=== PATIENT | female | born 1970 | race Caucasian/White ===

== ENCOUNTER 2018-04-22 08:21 | Day surgery (SDC) | payer OTHER ==
[2018-04-22] MEDS ORDERED: Ringers Lactate 1,000 ML IV ONE (08:54)
[2018-04-22] MEDS ORDERED: PROPOFOL 200 MG/20 ML VIAL IV ONE (10:51)
[2018-04-22] MEDS ORDERED: LIDOCAINE 1% MPF 5 ML VIAL ONE (10:51)
--- NOTE | 2018-04-22 11:05 | ENDO RPT ---
[address], [address] EGD PROCEDURE REPORT EXAM DATE: 04/22/2018 PATIENT NAME: Wendy Ambrocio MR#: [id number] BIRTHDATE: 1970 ATTENDING: Tl [address] STATUS: outpatient INSIGHT LEADER: Silvana Garcia, Luann Billy RN, and Joe Garcia INDICATIONS: The patient is a 47 yr old Female here for an EGD due to mid epigastric abdominal pain, nausea, bloating, belching, dyspepsia, GERD, and chronic unexplained diarrhea PROCEDURE PERFORMED: EGD with biopsy MEDICATIONS: Per Anesthesia. TOPICAL ANESTHETIC: none CONSENT: The patient understands the risks and benefits of the procedure and understands that these risks include, but are not limited to: sedation, allergic reaction, infection, perforation and/or bleeding. Alternative means of evaluation and treatment include, among others: physical exam, x-rays, and/or surgical intervention. The patient elects to proceed with this endoscopic procedure. DESCRIPTION OF PROCEDURE: During intra-op preparation period all mechanical medical equipment was checked for proper function. Hand hygiene and appropriate measures for infection prevention was taken. Procedure, possible complications, and alternatives including but not limited to the possibility of bleeding, perforation, tear, infection, sepsis, need for surgery, need for blood transfusion, and anesthesia related complications were explained to the patient. After the risks, benefits and alternatives of the procedure were thoroughly explained, Informed consent was verified, confirmed and timeout was successfully executed by the treatment team. The patient was placed in the left lateral position. The patient was anesthetized with topical anesthesia. Through the anesthetized oropharyngeal area, the scope was passed without any difficulty. The Pentax EG-[id number] ([id number]) endoscope was introduced through the mouth and advanced to the second portion of the duodenum. Retroflexed views revealed no abnormalities. The gastroscope was then slowly withdrawn and removed. LA Class A esophagitis was found in the lower esophagus. Mild gastritis was found in the body and the antrum of the stomach. Multiple biopsies were obtained and sent to pathology. A sessile polyp was found in the body of the stomach. With jumbo forceps, a biopsy was obtained and sent to pathology. Small bowel biopsies obtained with history of chronic unexplained diarrhea. ADVERSE EVENTS: There were no complications. IMPRESSIONS: 1. LA Class A esophagitis in the lower esophagus 2. Mild gastritis in the body and the antrum of the stomach, s/p biopsies 3. 6 small 3-5 mm sessile polyp in the body of the stomach, s/p biopsy 4. Small bowel biopsies obtained with history of chronic unexplained diarrhea RECOMMENDATIONS: 1. await biopsy results 2. acid suppression therapy REPEAT EXAM: Tl Harrison Dr eSigned: Tl Harrison Dr 04/22/2018 11:04 AM cc: Lalit Brooks CPT CODES: ICD9 CODES: PATIENT NAME: Wendy Ambrocio MR#: [id number]
[2018-04-22] MEDS ORDERED: MIDAZOLAM HCL 2 MG/2 ML INJ ONE (11:07)
--- NOTE | 2018-04-22 11:24 | ENDO RPT ---
[address], [address] COLONOSCOPY PROCEDURE REPORT EXAM DATE: 04/22/2018 PATIENT NAME: Wendy Ambrocio MR #: [id number] BIRTHDATE: 1970 ATTENDING: Tl [address] Dr STATUS: outpatient BIOMETRICS EXPERIMENTALIST: Silvana Garcia, Luann Billy RN, and Joe Garcia INDICATIONS: The patient is a 47 yr old Female here for a colonoscopy due to abdominal pain, change in bowel habits, and unexplained chronic diarrhea PROCEDURE PERFORMED: Colonoscopy with snare polypectomy MEDICATIONS: Per Anesthesia. ESTIMATED BLOOD LOSS: None CONSENT: The patient understands the risks and benefits of the procedure and understands that these risks include, but are not limited to: sedation, allergic reaction, infection, perforation and/or bleeding. Alternative means of evaluation and treatment include, among others: physical exam, x-rays, and/or surgical intervention. The patient elects to proceed with this endoscopic procedure. DESCRIPTION OF PROCEDURE: During intra-op preparation period all mechanical medical equipment was checked for proper function. Hand hygiene and appropriate measures for infection prevention was taken. Procedure, possible complications, alternatives including, but not limited to possibility of bleeding, perforation, tear, infection, sepsis, need for surgery, need for blood transfusion, were explained to the patient. After the risks, benefits and alternatives of the procedure were thoroughly explained, Informed consent was verified, confirmed and timeout was successfully executed by the treatment team. The patient was placed in the left lateral position. A digital rectal exam was performed and revealed no abnormalities of the rectum. After appropriate level of anesthesia, the scope was passed. The EC-[id number] ([id number]) endoscope was introduced through the anus and advanced to the cecum. The quality of the prep was fair. The instrument was then slowly withdrawn as the colon was fully examined. Scope withdrawal time was 8 minutes. COLON FINDINGS: A pedunculated polyp measuring 10 mm in size was found in the transverse colon. A polypectomy was performed using snare cautery. Mild diverticulosis in the sigmoid colon. Small internal hemorrhoids were found. Retroflexed views revealed small hemorrhoids. The scope was then completely withdrawn from the patient and the procedure terminated. ADVERSE EVENTS: There were no complications. IMPRESSIONS: 1. 1 cm pedunculated polyp in the transverse colon; polypectomy was performed using snare cautery 2. Mild diverticulosis in the sigmoid colon 3. Small internal hemorrhoids 4. Intubation to cecum RECOMMENDATIONS: 1. await biopsy results 2. avoid NSAIDS for 2 weeks RECALL: Return in 1 year(s) for Colonoscopy. Tl [address] Dr eSigned: Tl Harrison Dr 04/22/2018 11:24 AM cc: Lalit Brooks CPT CODES: ICD9 CODES: PATIENT NAME: Wendy Ambrocio MR#: [id number]
== END 2018-04-22 11:59 | disposition home or self-care (01) ==
LOC: OR 08:21
PROVIDERS: ATTEND Internal Medicine Gastroenterology
PROC: 0DB88ZX Excision of Small Intestine, Via Natural or Artificial Opening Endoscopic, Diagnostic (ICD-10-PCS; 2018-04-22)
PROC: 0DB78ZX Excision of Stomach, Pylorus, Via Natural or Artificial Opening Endoscopic, Diagnostic (ICD-10-PCS; 2018-04-22)
PROC: 0D568ZZ Destruction of Stomach, Via Natural or Artificial Opening Endoscopic (ICD-10-PCS; 2018-04-22)
PROC: 0DBL8ZX Excision of Transverse Colon, Via Natural or Artificial Opening Endoscopic, Diagnostic (ICD-10-PCS; principal; 2018-04-22 11:15)
PROC: 0DB68ZX Excision of Stomach, Via Natural or Artificial Opening Endoscopic, Diagnostic (ICD-10-PCS; 2018-04-22 11:15)
DX: K31.7 Polyp of stomach and duodenum (principal); K63.5 Polyp of colon; K57.10 Diverticulosis of small intestine without perforation or abscess without bleeding; K64.8 Other hemorrhoids; I10 Essential (primary) hypertension; K58.0 Irritable bowel syndrome with diarrhea; M35.00 Sjogren syndrome, unspecified; K29.60 Other gastritis without bleeding; K20.8 Other esophagitis
CPT/HCPCS: 88305; 88312; J2250

== ENCOUNTER → 2023-11-12 | Emergency (ER) | payer OTHER, SELFPAY ==
[~2023-11-12] MED LIST: KETOROLAC 30 MG/ML INJ ONE; hydrOXYzine HCL 25 MG TAB ONE
--- OUTSIDE RECORDS SUMMARY | 2023-11-12 00:30 | XMS REPORT | Continuity of Care Document ---
Author Name Unknown Address [address] [place] [address] [facility] Address [address] [facility] [address] [place] [address] Care Team Providers Care Clinical Nursing Instructor Name Role Phone Pillo Noble MD Primary Care Physician [phone] Regan Astorga Attending Clinician Unavailable Pillo Noble MD Attending Clinician [phone] PILLO NOBLE Attending Clinician Unavailable Doctor Unassigned, Zion Attending Clinician U navailable ROSETTA_Miya Attending Clinician Unavailable KELLY ALVAREZ Attending Clinician Unavailable Kelly Elder Attending Clinician [phone] Unknown, Attending Attending Clinician Unavailab Zana GARDNER, Marcelo Pederson Attending Clinician + [phone] Hussein Sanon MD Attending Clinician [phone] ALTON BRANHAM Attending Clinician Unavailcarolyn Olvera OT, Vandana A Attending Clinician Unavail able Alton Brnaham MD Attending Clinician [phone] Dora TYLER, Yary Smith Attending Clinician UnaLUPE Lopez Attending Clinician Unavailable Ambreen PAC, Lupe S Attending Clinician [phone] Pob, [facility] Main Attending Clinician UnavailYARY Hancock Attending Clinician Unavailab Brennen FRENCH MD, James C Attending Clinician [phone] Green INTERNAL COMMUNICATIONS SPECIALIST, Joy Attending Clinician [phone] JOY JARRETT Attending Clinician Unavailable Therapy, [facility] Attending Clinician Unavailable Ranjith GARDNER, Sesar Mujica Attending Clinician [phone] SESAR LÓPEZ Attending Clinician Unavailable MARCELO PENA Attending Clinician UnaAyde Vázquez Attending Clinician [phone] AYDE SOUSA Attending Clinician Unavailable Provider, [facility] Attending Clinician Unavailable Yary Shine Attending Clinician [phone] Ramu TYLER, Iris Prieto Attending Clinician Unavaila ble Only, Ang Db Test Attending Clinician Unavailabl salazar Hamlin INTERNAL COMMUNICATIONS SPECIALIST, Abdirizak Attending Clinician [phone] ABDIRIZAK HAMLIN Attending Clinician Unavailabl e Ralph Villela DO Attending Clinician [phone] Provider, [facility] Attending Clinician Un available Omaghomi INTERNAL COMMUNICATIONS SPECIALIST, Omayembebeto Attending Clinician [phone] OMROSA MARIAI OMAYEMI Attending Clinician Unavailabl salazar Meyers INTERNAL COMMUNICATIONS SPECIALIST, Mikey Attending Clinician [phone] Jacqueline Petty NP Attending Clinician [phone] P[facility], [facility] Attending Clinician UnaMIKEY Garcia Attending Clinician Unavailable Manny GARDNER, Jarrod Attending Clinician [phone] TOMASA Admitting Clinician Unavailable Payers Payer Name Policy Type Policy Number Effective Date Expirati on Date Source [employer] [id number] 2020 00:00[place]00 [facility] [id number] 2023 00:00:00 [facility] - OPEN ACCESS [id number] 2022 00:00:00 [employer] [facility] [id number] 2014 00:00:00 Problems Condition Name Condition Details Condition Category Status Onset Date Resolution Date Last Treatment Date Treating Clinician Comments Source Menopause Menopause Disease Active 02-28 00:00: 00 [facility] Irritable bowel syndrome, unspecifie d type Irritable bowel syndrome, unspecifie d type Disease Active 02-28 00:00: 00 [facility] Right foot pain Right foot pain Disease Active 02-20 00:00: 00 [facility] Anxiety Anxiety Disease Active 10-11 00:00: 00 [facility] [id number] Generalize d anxiety disorder Problem [facility] [id number] Moderate major depression , single episode Problem [facility] [id number] Essential hypertensi on Problem [facility] [id number] Body mass index [BMI] 40.0-44.9, adult Problem [facility] [id number] Morbid (severe) obesity due to excess calories Problem [facility] [id number] Panic disorder [episodic paroxysmal anxiety] Problem [facility] [id number] Hx of total hysterecto my Problem [facility] [id number] Psoriatic arthritis Problem [facility] [id number] Sjogren's syndrome, with unspecifie d organ involvemen t Problem [facility] [id number] Postmenopa usal disorder Problem [facility] [id number] GERD without esophagiti s Problem [facility] Allergies, Adverse Reactions, Alerts Allergy Name Allergy Type Status Severity Reaction(s) Onset Date Inactive Date Treating Clinician Comments Source NO KNOWN ALLERGIE S Drug Class Active [facility] Social History Social Habit Start Date Stop Date Quantity Comments Source Gender identity [facility] of [facility] Sex Assigned At [facility] History of Social function 2023-03-22 00:00:00 2023-03-22 00:00:00 [facility] Exposure to SARS-CoV-2 (event) 2022-09-23 00:00:00 2022-10-03 16:15:00 Not sure [facility] Alcohol intake 2021-05-25 00:00:00 2021-05-25 00:00:00 Current non-drinker of alcohol (finding) [facility] Tobacco use and exposure 2015-10-11 00:00:00 2015-10-11 00:00:00 Smokeless tobacco non-user [facility] Smoking Status Start Date Stop Date Source Never Smoker [facility] Ex-smoker 2015-10-11 00:00:00 2015-10-11 [facility] Ordered Medication Name Filled Medication Name Start Date Stop Date Current Medication? Ordering Clinician Indication Dosage Frequency Signature (SIG) Comments Components Source Saxenda 18 MG/3ML Saxenda 18 MG/3ML 2024-0 - 00:00: 00 No QD Saxenda 18 MG/3ML Saxenda 18 MG/3ML Saxenda 18 MG/3ML 2024-0 - 00:00: 00 No QD Saxenda 18 MG/3ML Saxenda 18 MG/3ML Saxenda 18 MG/3ML 2024-0 - 00:00: 00 No QD Saxenda 18 MG/3ML Saxenda 18 MG/3ML Saxenda 18 MG/3ML 2024-0 - 00:00: 00 No QD Saxenda 18 MG/3ML Saxenda 18 MG/3ML Saxenda 18 MG/3ML 2024-0 1- 00:00: 00 No QD Saxenda 18 MG/3ML Saxenda 18 MG/3ML Saxenda 18 MG/3ML 2024-0 - 00:00: 00 No QD Saxenda 18 MG/3ML Saxenda 18 MG/3ML Saxenda 18 MG/3ML 2024-0 - 00:00: 00 No QD Saxenda 18 MG/3ML Saxenda 18 MG/3ML Saxenda 18 MG/3ML 2024-0 1-30 00:00: 00 No QD Saxenda 18 MG/3ML Saxenda 18 MG/3ML Saxenda 18 MG/3ML 4-0 1-30 00:00: 00 No QD Saxenda 18 MG/3ML Saxenda 18 MG/3ML Saxenda 18 MG/3ML 4-0 1-30 00:00: 00 No QD Saxenda 18 MG/3ML Saxenda 18 MG/3ML Saxenda 18 MG/3ML 4-0 1-30 00:00: 00 No QD Saxenda 18 MG/3ML Saxenda 18 MG/3ML Saxenda 18 MG/3ML 2024-0 1- 00:00: 00 No QD Saxenda 18 MG/3ML Saxenda 18 MG/3ML Saxenda 18 MG/3ML 4-0 - 00:00: 00 No QD Saxenda 18 MG/3ML ALPRAZolam 0.5 MG ALPRAZolam 0.5 MG 4-0 -25 00:00: 00 No BID ALPRAZolam 0.5 MG ALPRAZolam 0.5 MG ALPRAZolam 0.5 MG 4-0 -25 00:00: 00 No BID ALPRAZolam 0.5 MG ALPRAZolam 0.5 MG ALPRAZolam 0.5 MG 4-0 -25 00:00: 00 No BID ALPRAZolam 0.5 MG ALPRAZolam 0.5 MG ALPRAZolam 0.5 MG 4-0 -25 00:00: 00 No BID ALPRAZolam 0.5 MG ALPRAZolam 0.5 MG ALPRAZolam 0.5 MG 4-0 -25 00:00: 00 No BID ALPRAZolam 0.5 MG ALPRAZolam 0.5 MG ALPRAZolam 0.5 MG 4-0 -25 00:00: 00 No BID ALPRAZolam 0.5 MG ALPRAZolam 0.5 MG ALPRAZolam 0.5 MG 4-0 -25 00:00: 00 No BID ALPRAZolam 0.5 MG ALPRAZolam 0.5 MG ALPRAZolam 0.5 MG 4-0 -25 00:00: 00 No BID ALPRAZolam 0.5 MG ALPRAZolam 0.5 MG ALPRAZolam 0.5 MG 4-0 -25 00:00: 00 No BID ALPRAZolam 0.5 MG ALPRAZolam 0.5 MG ALPRAZolam 0.5 MG 4-0 1-25 00:00: 00 No BID ALPRAZolam 0.5 MG ALPRAZolam 0.5 MG ALPRAZolam 0.5 MG 2023-0 1-25 00:00: 00 No BID ALPRAZolam 0.5 MG ALPRAZolam 0.5 MG ALPRAZolam 0.5 MG 2023-0 1-25 00:00: 00 No BID ALPRAZolam 0.5 MG Mounjaro 10 MG/0.5ML Mounjaro 10 MG/0.5ML 2023-0 1-16 00:00: 00 No Mounjaro 10 MG/0.5ML Zepbound 10 MG/0.5ML Zepbound 10 MG/0.5ML 2023-0 1-15 00:00: 00 No Zepbound 10 MG/0.5ML ALPRAZolam 1 MG ALPRAZolam 1 MG 2022-09 1- 00:00: 00 No BID ALPRAZolam 1 MG Amoxicillin 500 MG Amoxicillin 500 MG 2022-09 0 00:00: 00 No 1{table t} TID Amoxicilli n 500 MG ESTRADIOL 1 mg tablet 2022-09 00:00: 00 Yes [id number] 1mg TAKE 1 TABLET BY MOUTH DAILY [facility] ESTRADIOL 1 mg tablet 05-09 00:00: 00 Yes [id number] 1mg TAKE 1 TABLET BY MOUTH DAILY [facility] ESTRADIOL 1 mg tablet 05-09 00:00: 00 06-20 00:00 :00 No [id number] 1mg TAKE 1 TABLET BY MOUTH DAILY [facility] pantoprazol e 40 mg EC tablet 03-22 00:00: 00 Yes [id number] 40mg Take 1 tablet by mouth in the morning. [facility] metoprolol succinate XL 100 mg 24 hr tablet 03-22 00:00: 00 Yes [id number] 100mg Take 1 tablet by mouth in the morning. [facility] furosemide 20 mg tablet 03-22 00:00: 00 Yes [id number] 20mg Take 1 tablet by mouth every morning. [facility] ALPRAZolam 1 mg tablet 03-22 00:00: 00 Yes [id number] TAKE 1 TABLET BY MOUTH TWICE DAILY NEEDED FOR ANXIETY [facility] pantoprazol e 40 mg EC tablet 03-22 00:00: 00 Yes [id number] 40mg Take 1 tablet by mouth in the morning. [facility] metoprolol succinate XL 100 mg 24 hr tablet 03-22 00:00: 00 Yes [id number] 100mg Take 1 tablet by mouth in the morning. [facility] furosemide 20 mg tablet 03-22 00:00: 00 Yes [id number] 20mg Take 1 tablet by mouth every morning. [facility] ALPRAZolam 1 mg tablet 03-22 00:00: 00 Yes [id number] TAKE 1 TABLET BY MOUTH TWICE DAILY NEEDED FOR ANXIETY [facility] pantoprazol e 40 mg EC tablet 03-22 00:00: 00 Yes [id number] 40mg Take 1 tablet by mouth in the morning. [facility] metoprolol succinate XL 100 mg 24 hr tablet 03-22 00:00: 00 Yes [id number] 100mg Take 1 tablet by mouth in the morning. [facility] furosemide 20 mg tablet 03-22 00:00: 00 Yes [id number] 20mg Take 1 tablet by mouth every morning. [facility] ALPRAZolam 1 mg tablet 03-22 00:00: 00 Yes [id number] TAKE 1 TABLET BY MOUTH TWICE DAILY NEEDED FOR ANXIETY [facility] pantoprazol e 40 mg EC tablet 03-22 00:00: 00 Yes [id number] 40mg Take 1 tablet by mouth in the morning. [facility] metoprolol succinate XL 100 mg 24 hr tablet 03-22 00:00: 00 Yes [id number] 100mg Take 1 tablet by mouth in the morning. [facility] furosemide 20 mg tablet 03-22 00:00: 00 Yes [id number] 20mg Take 1 tablet by mouth every morning. [facility] ALPRAZolam 1 mg tablet 03-22 00:00: 00 Yes [id number] TAKE 1 TABLET BY MOUTH TWICE DAILY NEEDED FOR ANXIETY [facility] pantoprazol e 40 mg EC tablet 03-22 00:00: 00 Yes [id number] 40mg Take 1 tablet by mouth in the morning. [facility] metoprolol succinate XL 100 mg 24 hr tablet 03-22 00:00: 00 Yes [id number] 100mg Take 1 tablet by mouth in the morning. [facility] furosemide 20 mg tablet 03-22 00:00: 00 Yes [id number] 20mg Take 1 tablet by mouth every morning. [facility] ALPRAZolam 1 mg tablet 03-22 00:00: 00 Yes [id number] TAKE 1 TABLET BY MOUTH TWICE DAILY NEEDED FOR ANXIETY [facility] ALPRAZOLAM 1 mg tablet 03-15 00:00: 00 Yes [id number] TAKE 1 TABLET BY MOUTH TWICE DAILY NEEDED FOR ANXIETY [facility] ESCITALOPRA M OXALATE 10 mg tablet 03-15 00:00: 00 Yes [id number] 10mg TAKE 1 TABLET BY MOUTH DAILY [facility] ALPRAZOLAM 1 mg tablet 03-15 00:00: 00 Yes [id number] TAKE 1 TABLET BY MOUTH TWICE DAILY NEEDED FOR ANXIETY [facility] ESCITALOPRA M OXALATE 10 mg tablet 03-15 00:00: 00 Yes [id number] 10mg TAKE 1 TABLET BY MOUTH DAILY [facility] ESCITALOPRA M OXALATE 10 mg tablet 03-15 00:00: 00 Yes [id number] 10mg TAKE 1 TABLET BY MOUTH DAILY [facility] ESCITALOPRA M OXALATE 10 mg tablet 03-15 00:00: 00 Yes [id number] 10mg TAKE 1 TABLET BY MOUTH DAILY [facility] ESCITALOPRA M OXALATE 10 mg tablet 03-15 00:00: 00 Yes [id number] 10mg TAKE 1 TABLET BY MOUTH DAILY [facility] ESCITALOPRA M OXALATE 10 mg tablet 03-15 00:00: 00 Yes [id number] 10mg TAKE 1 TABLET BY MOUTH DAILY [facility] ESCITALOPRA M OXALATE 10 mg tablet 03-15 00:00: 00 Yes [id number] 10mg TAKE 1 TABLET BY MOUTH DAILY [facility] ALPRAZOLAM 1 mg tablet 03-15 00:00: 00 03-22 00:00 :00 No [id number] TAKE 1 TABLET BY MOUTH TWICE DAILY NEEDED FOR ANXIETY [facility] ALPRAZOLAM 1 mg tablet 03-15 00:00: 00 03-22 00:00 :00 No [id number] TAKE 1 TABLET BY MOUTH TWICE DAILY NEEDED FOR ANXIETY [facility] ALPRAZOLAM 1 mg tablet 03-15 00:00: 00 03-22 00:00 :00 No [id number] TAKE 1 TABLET BY MOUTH TWICE DAILY NEEDED FOR ANXIETY [facility] METOPROLOL SUCCINATE XL 100 mg 24 hr tablet 01-29 00:00: 00 Yes [id number] 100mg TAKE 1 TABLET BY MOUTH DAILY [facility] ESTRADIOL 1 mg tablet 01-29 00:00: 00 Yes [id number] 1mg TAKE 1 TABLET BY MOUTH DAILY [facility] METOPROLOL SUCCINATE XL 100 mg 24 hr tablet 01-29 00:00: 00 Yes [id number] 100mg TAKE 1 TABLET BY MOUTH DAILY [facility] ESTRADIOL 1 mg tablet 01-29 00:00: 00 Yes [id number] 1mg TAKE 1 TABLET BY MOUTH DAILY [facility] METOPROLOL SUCCINATE XL 100 mg 24 hr tablet 01-29 00:00: 00 Yes [id number] 100mg TAKE 1 TABLET BY MOUTH DAILY [facility] ESTRADIOL 1 mg tablet 15 00:00: 00 Yes [id number] 1mg TAKE 1 TABLET BY MOUTH DAILY [facility] METOPROLOL SUCCINATE XL 100 mg 24 hr tablet 01-29 00:00: 00 Yes [id number] 100mg TAKE 1 TABLET BY MOUTH DAILY [facility] ESTRADIOL 1 mg tablet -15 00:00: 00 Yes [id number] 1mg TAKE 1 TABLET BY MOUTH DAILY [facility] ESTRADIOL 1 mg tablet 15 00:00: 00 Yes [id number] 1mg TAKE 1 TABLET BY MOUTH DAILY [facility] ESTRADIOL 1 mg tablet 15 00:00: 00 Yes [id number] 1mg TAKE 1 TABLET BY MOUTH DAILY [facility] ESTRADIOL 1 mg tablet 15 00:00: 00 Yes [id number] 1mg TAKE 1 TABLET BY MOUTH DAILY [facility] ESTRADIOL 1 mg tablet 15 00:00: 00 05-09 00:00 :00 No [id number] 1mg TAKE 1 TABLET BY MOUTH DAILY [facility] METOPROLOL SUCCINATE XL 100 mg 24 hr tablet 15 00:00: 00 03-22 00:00 :00 No [id number] 100mg TAKE 1 TABLET BY MOUTH DAILY [facility] METOPROLOL SUCCINATE XL 100 mg 24 hr tablet 15 00:00: 00 03-22 00:00 :00 No [id number] 100mg TAKE 1 TABLET BY MOUTH DAILY [facility] METOPROLOL SUCCINATE XL 100 mg 24 hr tablet 15 00:00: 00 03-22 00:00 :00 No [id number] 100mg TAKE 1 TABLET BY MOUTH DAILY [facility] ESTRADIOL 1 mg tablet 2-14 00:00: 00 Yes [id number] 1mg TAKE 1 TABLET BY MOUTH DAILY [facility] ESTRADIOL 1 mg tablet 2-14 00:00: 00 01-29 00:00 :00 No [id number] 1mg TAKE 1 TABLET BY MOUTH DAILY [facility] PANTOPRAZOL E 40 mg EC tablet -18 00:00: 00 Yes [id number] 40mg TAKE 1 TABLET BY MOUTH IN THE MORNING [facility] furosemide 20 mg tablet -18 00:00: 00 Yes [id number] 20mg Take 1 tablet by mouth every morning. [facility] PANTOPRAZOL E 40 mg EC tablet 0 18 00:00: 00 Yes [id number] 40mg TAKE 1 TABLET BY MOUTH IN THE MORNING [facility] furosemide 20 mg tablet 0 18 00:00: 00 Yes [id number] 20mg Take 1 tablet by mouth every morning. [facility] PANTOPRAZOL E 40 mg EC tablet 0 10-04 00:00: 00 Yes [id number] 40mg TAKE 1 TABLET BY MOUTH IN THE MORNING [facility] furosemide 20 mg tablet 0 10-04 00:00: 00 Yes [id number] 20mg Take 1 tablet by mouth every morning. [facility] PANTOPRAZOL E 40 mg EC tablet 10-04 00:00: 00 Yes [id number] 40mg TAKE 1 TABLET BY MOUTH IN THE MORNING [facility] furosemide 20 mg tablet 0 10-04 00:00: 00 Yes [id number] 20mg Take 1 tablet by mouth every morning. [facility] PANTOPRAZOL E 40 mg EC tablet 0 10-04 00:00: 00 Yes [id number] 40mg TAKE 1 TABLET BY MOUTH IN THE MORNING [facility] furosemide 20 mg tablet 0 10-04 00:00: 00 Yes [id number] 20mg Take 1 tablet by mouth every morning. [facility] PANTOPRAZOL E 40 mg EC tablet 0 10-04 00:00: 00 Yes [id number] 40mg TAKE 1 TABLET BY MOUTH IN THE MORNING [facility] furosemide 20 mg tablet 0 10-04 00:00: 00 Yes [id number] 20mg Take 1 tablet by mouth every morning. [facility] PANTOPRAZOL E 40 mg EC tablet 18 00:00: 00 03-22 00:00 :00 No [id number] 40mg TAKE 1 TABLET BY MOUTH IN THE MORNING [facility] furosemide 20 mg tablet 18 00:00: 00 03-22 00:00 :00 No [id number] 20mg Take 1 tablet by mouth every morning. [facility] PANTOPRAZOL E 40 mg EC tablet 10-04 00:00: 00 03-22 00:00 :00 No [id number] 40mg TAKE 1 TABLET BY MOUTH IN THE MORNING [facility] furosemide 20 mg tablet 10-04 00:00: 00 03-22 00:00 :00 No [id number] 20mg Take 1 tablet by mouth every morning. [facility] PANTOPRAZOL E 40 mg EC tablet 10-04 00:00: 00 03-22 00:00 :00 No [id number] 40mg TAKE 1 TABLET BY MOUTH IN THE MORNING [facility] furosemide 20 mg tablet 10-04 00:00: 00 03-22 00:00 :00 No [id number] 20mg Take 1 tablet by mouth every morning. [facility] ipratropium -albuteroL (DUONEB) 0.5 mg-3 mg(2.5 mg base)/3 mL nebulizer solution 6 mL 10-03 23:30: 00 10-03 22:45 :00 No [id number] 6mL [facility] dexamethaso ne (DECADRON) injection 10 mg 10-03 23:30: 00 10-03 22:44 :00 No [id number] 10mg [facility] dexamethaso ne (DECADRON) injection 10 mg 10-03 23:30: 00 10-03 22:44 :00 No [id number] 10mg 10 mg, Intramuscu lar, ONCE, 1 dose, On Sun10/03/22 at 1730, Routine [facility] ipratropium -albuteroL (DUONEB) 0.5 mg-3 mg(2.5 mg base)/3 mL nebulizer solution 6 mL 10-03 23:30: 00 10-03 22:45 :00 No [id number] 6mL 6 mL, Inhalation , ONCE, 1 dose, On Sun10/03/22 at 1730, Routine [facility] predniSONE 20 mg tablet 2022-0 1-17 00:00: 00 10-09 05:59 :00 No [id number] 40mg Take 2 tablets by mouth in the morning for 5 days. [facility] promethazin e-dextromet horphan 6.25-15 mg/5 mL syrup 2022-0 1-17 00:00: 00 10-09 05:59 :00 No [id number] 5mL Take 5 mL by mouth 4 (four) times daily for 5 days. [facility] levoFLOXaci n (LEVAQUIN) 750 mg tablet 2022-0 1-17 00:00: 00 10-09 05:59 :00 No [id number] 750mg Take 1 tablet by mouth every 24 (twenty-fo ur) hours for 5 days. [facility] predniSONE 20 mg tablet 2022-0 1-17 00:00: 00 10-09 05:59 :00 No [id number] 40mg Take 2 tablets by mouth in the morning for 5 days. [facility] promethazin e-dextromet horphan 6.25-15 mg/5 mL syrup 0 1-17 00:00: 00 10-09 05:59 :00 No [id number] 5mL Take 5 mL by mouth 4 (four) times daily for 5 days. [facility] levoFLOXaci n (LEVAQUIN) 750 mg tablet 2022-0 1-17 00:00: 00 10-09 05:59 :00 No [id number] 750mg Take 1 tablet by mouth every 24 (twenty-fo ur) hours for 5 days. [facility] predniSONE 20 mg tablet 2022-0 1-17 00:00: 00 10-09 05:59 :00 No [id number] 40mg Take 2 tablets by mouth in the morning for 5 days. [facility] promethazin e-dextromet horphan 6.25-15 mg/5 mL syrup 2022-0 1-17 00:00: 00 10-09 05:59 :00 No [id number] 5mL Take 5 mL by mouth 4 (four) times daily for 5 days. [facility] levoFLOXaci n (LEVAQUIN) 750 mg tablet 10-03 00:00: 00 10-09 05:59 :00 No [id number] 750mg Take 1 tablet by mouth every 24 (twenty-fo ur) hours for 5 days. [facility] ESCITALOPRA M OXALATE 10 mg tablet 2021-09 00:00: 00 Yes [id number] 10mg TAKE 1 TABLET BY MOUTH DAILY [facility] ESCITALOPRA M OXALATE 10 mg tablet 2021-09 00:00: 00 Yes [id number] 10mg TAKE 1 TABLET BY MOUTH DAILY [facility] ESCITALOPRA M OXALATE 10 mg tablet 2021-09 00:00: 00 Yes [id number] 10mg TAKE 1 TABLET BY MOUTH DAILY [facility] ESCITALOPRA M OXALATE 10 mg tablet 2021-09 00:00: 00 Yes [id number] 10mg TAKE 1 TABLET BY MOUTH DAILY [facility] ESCITALOPRA M OXALATE 10 mg tablet 2021-09 00:00: 00 Yes [id number] 10mg TAKE 1 TABLET BY MOUTH DAILY [facility] ESCITALOPRA M OXALATE 10 mg tablet 2021-09 00:00: 00 Yes [id number] 10mg TAKE 1 TABLET BY MOUTH DAILY [facility] ESCITALOPRA M OXALATE 10 mg tablet 2021-09 00:00: 00 Yes [id number] 10mg TAKE 1 TABLET BY MOUTH DAILY [facility] ESCITALOPRA M OXALATE 10 mg tablet 2021-09 00:00: 00 03-15 00:00 :00 No [id number] 10mg TAKE 1 TABLET BY MOUTH DAILY [facility] ESTRADIOL 1 mg tablet 2021-09 00:00: 00 Yes [id number] 1mg TAKE 1 TABLET BY MOUTH DAILY [facility] metoprolol succinate XL 100 mg 24 hr tablet 2021-09 00:00: 00 Yes [id number] 100mg TAKE 1 TABLET BY MOUTH DAILY [facility] ESTRADIOL 1 mg tablet 2021-09 00:00: 00 Yes [id number] 1mg TAKE 1 TABLET BY MOUTH DAILY [facility] metoprolol succinate XL 100 mg 24 hr tablet 2021-09 00:00: 00 Yes [id number] 100mg TAKE 1 TABLET BY MOUTH DAILY [facility] ESTRADIOL 1 mg tablet 2021-09 00:00: 00 Yes [id number] 1mg TAKE 1 TABLET BY MOUTH DAILY [facility] metoprolol succinate XL 100 mg 24 hr tablet 2021-09 00:00: 00 Yes [id number] 100mg TAKE 1 TABLET BY MOUTH DAILY [facility] ESTRADIOL 1 mg tablet 2021-09 00:00: 00 Yes [id number] 1mg TAKE 1 TABLET BY MOUTH DAILY [facility] metoprolol succinate XL 100 mg 24 hr tablet 2021-09 00:00: 00 Yes [id number] 100mg TAKE 1 TABLET BY MOUTH DAILY [facility] ESTRADIOL 1 mg tablet 2021-09 00:00: 00 Yes [id number] 1mg TAKE 1 TABLET BY MOUTH DAILY [facility] metoprolol succinate XL 100 mg 24 hr tablet 2021-09 00:00: 00 Yes [id number] 100mg TAKE 1 TABLET BY MOUTH DAILY [facility] ESTRADIOL 1 mg tablet 2021-09 00:00: 00 Yes [id number] 1mg TAKE 1 TABLET BY MOUTH DAILY [facility] metoprolol succinate XL 100 mg 24 hr tablet 2021-09 00:00: 00 Yes [id number] 100mg TAKE 1 TABLET BY MOUTH DAILY [facility] metoprolol succinate XL 100 mg 24 hr tablet 2021-09 00:00: 00 01-29 00:00 :00 No [id number] 100mg TAKE 1 TABLET BY MOUTH DAILY [facility] ESTRADIOL 1 mg tablet 2021-09 00:00: 00 10-31 00:00 :00 No [id number] 1mg TAKE 1 TABLET BY MOUTH DAILY [facility] ALPRAZOLAM 1 mg tablet 2021-09 00:00: 00 Yes [id number] TAKE 1 TABLET BY MOUTH TWICE DAILY NEEDED FOR ANXIETY [facility] ALPRAZOLAM 1 mg tablet 2021-09 00:00: 00 Yes [id number] TAKE 1 TABLET BY MOUTH TWICE DAILY NEEDED FOR ANXIETY [facility] ALPRAZOLAM 1 mg tablet 2021-09 00:00: 00 Yes [id number] TAKE 1 TABLET BY MOUTH TWICE DAILY NEEDED FOR ANXIETY [facility] ALPRAZOLAM 1 mg tablet 2021-09 00:00: 00 Yes [id number] TAKE 1 TABLET BY MOUTH TWICE DAILY NEEDED FOR ANXIETY [facility] ALPRAZOLAM 1 mg tablet 2021-09 00:00: 00 Yes [id number] TAKE 1 TABLET BY MOUTH TWICE DAILY NEEDED FOR ANXIETY [facility] ALPRAZOLAM 1 mg tablet 2021-09 00:00: 00 Yes [id number] TAKE 1 TABLET BY MOUTH TWICE DAILY NEEDED FOR ANXIETY [facility] ALPRAZOLAM 1 mg tablet 2021-09 00:00: 00 Yes [id number] TAKE 1 TABLET BY MOUTH TWICE DAILY NEEDED FOR ANXIETY [facility] ALPRAZOLAM 1 mg tablet 2021-09 00:00: 00 Yes [id number] TAKE 1 TABLET BY MOUTH TWICE DAILY NEEDED FOR ANXIETY [facility] ALPRAZOLAM 1 mg tablet 2021-09 00:00: 00 Yes [id number] TAKE 1 TABLET BY MOUTH TWICE DAILY NEEDED FOR ANXIETY [facility] ALPRAZOLAM 1 mg tablet 2021-09 00:00: 00 Yes [id number] TAKE 1 TABLET BY MOUTH TWICE DAILY NEEDED FOR ANXIETY [facility] ALPRAZOLAM 1 mg tablet 2021-09 00:00: 00 03-15 00:00 :00 No [id number] TAKE 1 TABLET BY MOUTH TWICE [facility] 05-02 00:00: 00 Yes [id number] 1mg TAKE 1 TABLET BY MOUTH DAILY [facility] ESTRADIOL 1 mg tablet 05-02 00:00: 00 Yes [id number] 1mg TAKE 1 TABLET BY MOUTH DAILY [facility] ESTRADIOL 1 mg tablet 0 8-16 00:00: 00 11-21 00:00 :00 No [id number] 1mg TAKE 1 TABLET BY MOUTH DAILY [facility] pantoprazol e 40 mg EC tablet 04-11 00:00: 00 Yes [id number] 40mg Take 1 tablet by mouth in the morning. [facility] pantoprazol e 40 mg EC tablet 0 04-11 00:00: 00 Yes [id number] 40mg Take 1 tablet by mouth in the morning. [facility] pantoprazol e 40 mg EC tablet 0 04-11 00:00: 00 Yes [id number] 40mg Take 1 tablet by mouth in the morning. [facility] pantoprazol e 40 mg EC tablet 04-11 00:00: 00 Yes [id number] 40mg Take 1 tablet by mouth in the morning. [facility] pantoprazol e 40 mg EC tablet 04-11 00:00: 00 Yes [id number] 40mg Take 1 tablet by mouth in the morning. [facility] pantoprazol e 40 mg EC tablet 04-11 00:00: 00 Yes [id number] 40mg Take 1 tablet by mouth in the morning. [facility] pantoprazol e 40 mg EC tablet 04-11 00:00: 00 Yes [id number] 40mg Take 1 tablet by mouth in the morning. [facility] pantoprazol e 40 mg EC tablet 0 04-11 00:00: 00 Yes [id number] 40mg Take 1 tablet by mouth in the morning. [facility] pantoprazol e 40 mg EC tablet 0 04-11 00:00: 00 Yes [id number] 40mg Take 1 tablet by mouth in the morning. [facility] pantoprazol e 40 mg EC tablet 0 04-11 00:00: 00 Yes [id number] 40mg Take 1 tablet by mouth in the morning. [facility] pantoprazol e 40 mg EC tablet 0 04-11 00:00: 00 Yes [id number] 40mg Take 1 tablet by mouth in the morning. [facility] pantoprazol e 40 mg EC tablet 04-11 00:00: 00 10-04 00:00 :00 No [id number] 40mg Take 1 tablet by mouth in the morning. [facility] DEXLANSOPRA ZOLE 60 mg capsule 04-07 00:00: 00 Yes [id number] TAKE 1 CAPSULE [facility]OUTH [facility]ILY [facility] mg capsule 04-07 00:00: 00 Yes [id number] TAKE 1 CAPSULE BY MOUTH DAILY [facility] DEXLANSOPRA ZOLE 60 mg capsule 04-07 00:00: 00 04-11 00:00 :00 No [id number] TAKE 1 CAPSULE BY MOUTH DAILY [facility] ALPRAZOLAM 1 mg tablet 03-28 00:00: 00 Yes [id number] TAKE 1 TABLET BY MOUTH TWICE DAILY NEEDED FOR ANXIETY [facility] ALPRAZOLAM 1 mg tablet 0 03-28 00:00: 00 Yes [id number] TAKE 1 TABLET BY MOUTH TWICE DAILY NEEDED FOR ANXIETY [facility] ALPRAZOLAM 1 mg tablet 03-28 00:00: 00 Yes [id number] TAKE 1 TABLET BY MOUTH TWICE DAILY NEEDED FOR ANXIETY [facility] ALPRAZOLAM 1 mg tablet 03-28 00:00: 00 Yes [id number] TAKE 1 TABLET BY MOUTH TWICE DAILY [facility] 03-28 00:00: 00 Yes [id number] TAKE 1 TABLET BY MOUTH TWICE DAILY [facility] tablet 0 03-28 00:00: 00 Yes [id number] TAKE 1 TABLET BY MOUTH TWICE DAILY NEEDED FOR ANXIETY [facility] ALPRAZOLAM 1 mg tablet 2021-0 03-28 00:00: 00 Yes [id number] TAKE 1 TABLET BY MOUTH TWICE DAILY NEEDED FOR ANXIETY [facility] ALPRAZOLAM 1 mg tablet 03-28 00:00: 00 Yes [id number] TAKE 1 TABLET BY MOUTH TWICE DAILY NEEDED FOR ANXIETY [facility] ALPRAZOLAM 1 mg tablet 03-28 00:00: 00 Yes [id number] TAKE 1 TABLET BY MOUTH TWICE DAILY NEEDED FOR ANXIETY [facility] ALPRAZOLAM 1 mg tablet 03-28 00:00: 00 08-02 00:00 :00 No [id number] TAKE 1 TABLET BY MOUTH TWICE DAILY NEEDED FOR ANXIETY [facility] diclofenac 50 mg EC tablet 03-14 00:00: 00 Yes 50mg Take 50 mg by mouth in the morning and 50 mg in the evening. [facility] foLIC acid 1 mg tablet 03-14 00:00: 00 Yes TAKE 1 TABLET BY ORAL ROUTE EVERY DAY FOR WITH MTX [facility] diclofenac 50 mg EC tablet 03-14 00:00: 00 Yes 50mg Take 50 mg by mouth in the morning and 50 mg in the evening. [facility] foLIC acid 1 mg tablet 03-14 00:00: 00 Yes TAKE 1 TABLET BY ORAL ROUTE EVERY DAY FOR WITH MTX [facility] diclofenac 50 mg EC tablet 03-14 00:00: 00 Yes 50mg Take 50 mg by mouth in the morning and 50 mg in the evening. [facility] foLIC acid 1 mg tablet 03-14 00:00: 00 Yes TAKE 1 TABLET BY ORAL ROUTE EVERY DAY FOR WITH MTX [facility] diclofenac 50 mg EC tablet 03-14 00:00: 00 Yes 50mg Take 50 mg by mouth in the morning and 50 mg in the evening. [facility] foLIC acid 1 mg tablet 03-14 00:00: 00 Yes TAKE 1 TABLET BY ORAL ROUTE EVERY DAY FOR WITH MTX [facility] diclofenac 50 mg EC tablet 03-14 00:00: 00 Yes 50mg Take 50 mg by mouth in the morning and 50 mg in the evening. [facility] foLIC acid 1 mg tablet 03-14 00:00: 00 Yes TAKE 1 TABLET BY ORAL ROUTE EVERY DAY FOR WITH MTX [facility] 03-14 00:00: 00 Yes 50mg Take 50 mg by mouth in the morning and 50 mg in the evening. [facility] mg tablet 03-14 00:00: 00 Yes TAKE 1 TABLET BY ORAL ROUTE EVERY DAY FOR WITH MTX [facility] EC tablet 03-14 00:00: 00 Yes 50mg Take 50 mg by mouth in the morning and 50 mg in the evening. [facility] mg tablet 03-14 00:00: 00 Yes TAKE 1 TABLET BY ORAL ROUTE EVERY DAY FOR WITH MTX [facility] diclofenac 50 mg EC tablet 03-14 00:00: 00 Yes 50mg Take 50 mg by mouth in the morning and 50 mg in the evening. [facility] mg tablet 03-14 00:00: 00 Yes TAKE 1 TABLET BY ORAL ROUTE EVERY DAY FOR WITH MTX [facility] diclofenac 50 mg EC tablet 03-14 00:00: 00 Yes 50mg Take 50 mg by mouth in the morning and 50 mg in the evening. [facility] foLIC acid 1 mg tablet 03-14 00:00: 00 Yes TAKE 1 TABLET BY ORAL ROUTE EVERY DAY FOR WITH MTX [facility] diclofenac 50 mg EC tablet 03-14 00:00: 00 Yes 50mg Take 50 mg by mouth in the morning and 50 mg in the evening. [facility] foLIC acid 1 mg tablet 03-14 00:00: 00 Yes TAKE 1 TABLET BY ORAL ROUTE EVERY DAY FOR WITH MTX [facility] EC tablet 03-14 00:00: 00 Yes 50mg Take 50 mg by mouth in the morning and 50 mg in the evening. [facility] foLIC acid 1 mg tablet 03-14 00:00: 00 Yes TAKE 1 TABLET BY ORAL ROUTE EVERY DAY FOR WITH MTX [facility] diclofenac 50 mg EC tablet 0 03-14 00:00: 00 Yes 50mg Take 50 mg by mouth in the morning and 50 mg in the evening. [facility] mg tablet 03-14 00:00: 00 Yes TAKE 1 TABLET BY ORAL ROUTE EVERY DAY FOR WITH MTX [facility] EC tablet 03-14 00:00: 00 Yes 50mg Take 50 mg by mouth in the morning and 50 mg in the evening. [facility] mg tablet 03-14 00:00: 00 Yes TAKE 1 TABLET BY ORAL ROUTE EVERY DAY FOR WITH MTX [facility] EC tablet 0 03-14 00:00: 00 Yes 50mg Take 50 mg by mouth in the morning and 50 mg in the evening. [facility] foLIC acid 1 mg tablet 03-14 00:00: 00 Yes TAKE 1 TABLET BY ORAL ROUTE EVERY DAY FOR WITH MTX [facility] diclofenac 50 mg EC tablet 03-14 00:00: 00 Yes 50mg Take 50 mg by mouth in the morning and 50 mg in the evening. [facility] foLIC acid 1 mg tablet 0 03-14 00:00: 00 Yes TAKE 1 TABLET BY ORAL ROUTE EVERY DAY FOR WITH MTX [facility] diclofenac 50 mg EC tablet 03-14 00:00: 00 Yes 50mg Take 50 mg by mouth in the morning and 50 mg in the evening. [facility] foLIC acid 1 mg tablet 0 03-14 00:00: 00 Yes TAKE 1 TABLET BY ORAL ROUTE EVERY DAY FOR WITH MTX [facility] diclofenac 50 mg EC tablet 03-14 00:00: 00 Yes 50mg Take 50 mg by mouth in the morning and 50 mg in the evening. [facility] mg tablet 0 03-14 00:00: 00 Yes TAKE 1 TABLET BY ORAL ROUTE EVERY DAY FOR WITH MTX [facility] diclofenac 50 mg EC tablet 0 03-14 00:00: 00 Yes 50mg Take 50 mg by mouth in the morning and 50 mg in the evening. [facility] mg tablet 0 03-14 00:00: 00 Yes TAKE 1 TABLET BY ORAL ROUTE EVERY DAY FOR WITH MTX [facility] EC tablet 0 03-14 00:00: 00 Yes 50mg Take 50 mg by mouth in the morning and 50 mg in the evening. [facility] mg tablet 0 03-14 00:00: 00 Yes TAKE 1 TABLET BY ORAL ROUTE EVERY DAY FOR WITH MTX [facility] EC tablet 0 03-14 00:00: 00 Yes 50mg Take 50 mg by mouth in the morning and 50 mg in the evening. [facility] 1 mg tablet 0 03-14 00:00: 00 Yes TAKE 1 TABLET BY ORAL ROUTE EVERY DAY FOR WITH MTX [facility] diclofenac 50 mg EC tablet 03-14 00:00: 00 Yes 50mg Take 50 mg by mouth in the morning and 50 mg in the evening. [facility] mg tablet 0 03-14 00:00: 00 Yes TAKE 1 TABLET BY ORAL ROUTE EVERY DAY FOR WITH MTX [facility] diclofenac 50 mg EC tablet 0 03-14 00:00: 00 Yes 50mg Take 50 mg by mouth in the morning and 50 mg in the evening. [facility] foLIC acid 1 mg tablet 03-14 00:00: 00 Yes TAKE 1 TABLET BY ORAL ROUTE EVERY DAY FOR WITH MTX [facility] diclofenac 50 mg EC tablet 0 03-14 00:00: 00 Yes 50mg Take 50 mg by mouth in the morning and 50 mg in the evening. [facility] foLIC acid 1 mg tablet 0 03-14 00:00: 00 Yes TAKE 1 TABLET BY ORAL ROUTE EVERY DAY FOR WITH MTX [facility] diclofenac 50 mg EC tablet 0 03-14 00:00: 00 Yes 50mg Take 50 mg by mouth in the morning and 50 mg in the evening. [facility] mg tablet 2021-0 03-14 00:00: 00 Yes TAKE 1 TABLET BY ORAL ROUTE EVERY DAY FOR WITH MTX [facility] diclofenac 50 mg EC tablet 03-14 00:00: 00 Yes 50mg Take 50 mg by mouth in the morning and 50 mg in the evening. [facility] foLIC acid 1 mg tablet 03-14 00:00: 00 Yes TAKE 1 TABLET BY ORAL ROUTE EVERY DAY FOR WITH MTX [facility] diclofenac 50 mg EC tablet 03-14 00:00: 00 Yes 50mg Take 50 mg by mouth in the morning and 50 mg in the evening. [facility] foLIC acid 1 mg tablet 03-14 00:00: 00 Yes TAKE 1 TABLET BY ORAL ROUTE EVERY DAY FOR WITH MTX [facility] diclofenac 50 mg EC tablet 03-14 00:00: 00 Yes 50mg Take 50 mg by mouth in the morning and 50 mg in the evening. [facility] foLIC acid 1 mg tablet 03-14 00:00: 00 Yes TAKE 1 TABLET BY ORAL ROUTE EVERY DAY FOR WITH MTX [facility] diclofenac 50 mg EC tablet 03-14 00:00: 00 Yes 50mg Take 50 mg by mouth in the morning and 50 mg in the evening. [facility] foLIC acid 1 mg tablet 03-14 00:00: 00 Yes TAKE 1 TABLET BY ORAL ROUTE EVERY DAY FOR WITH MTX [facility] diclofenac 50 mg EC tablet 03-14 00:00: 00 Yes 50mg Take 50 mg by mouth in the morning and 50 mg in the evening. [facility] foLIC acid 1 mg tablet 03-14 00:00: 00 Yes TAKE 1 TABLET BY ORAL ROUTE EVERY DAY FOR WITH MTX [facility] diclofenac 50 mg EC tablet 03-14 00:00: 00 Yes 50mg Take 50 mg by mouth in the morning and 50 mg in the evening. [facility] foLIC acid 1 mg tablet 03-14 00:00: 00 Yes TAKE 1 TABLET BY ORAL ROUTE EVERY DAY FOR WITH MTX [facility] methotrexat e 2.5 mg tablet 03-06 00:00: 00 Yes TAKE 6 TABLET BY ORAL ROUTE EVERY WEEK FOR PSA [facility] methotrexat e 2.5 mg tablet 2021-0 -20 00:00: 00 Yes TAKE 6 TABLET BY ORAL ROUTE EVERY WEEK FOR PSA [facility] methotrexat e 2.5 mg tablet 2021-0 -20 00:00: 00 Yes TAKE 6 TABLET BY ORAL ROUTE EVERY WEEK FOR PSA [facility] methotrexat e 2.5 mg tablet 2021-0 -20 00:00: 00 Yes TAKE 6 TABLET BY ORAL ROUTE EVERY WEEK FOR PSA [facility] methotrexat e 2.5 mg tablet 2021-0 20 00:00: 00 Yes TAKE 6 TABLET BY ORAL ROUTE EVERY WEEK FOR PSA [facility] methotrexat e 2.5 mg tablet 2021-0 20 00:00: 00 Yes TAKE 6 TABLET BY ORAL ROUTE EVERY WEEK FOR PSA [facility] methotrexat e 2.5 mg tablet 2021-0 20 00:00: 00 Yes TAKE 6 TABLET BY ORAL ROUTE EVERY WEEK FOR PSA [facility] methotrexat e 2.5 mg tablet 2021-0 20 00:00: 00 Yes TAKE 6 TABLET BY ORAL ROUTE EVERY WEEK FOR PSA [facility] methotrexat e 2.5 mg tablet 2021-0 20 00:00: 00 Yes TAKE 6 TABLET BY ORAL ROUTE EVERY WEEK FOR PSA [facility] methotrexat e 2.5 mg tablet 2021-0 20 00:00: 00 Yes TAKE 6 TABLET BY ORAL ROUTE EVERY WEEK FOR PSA [facility] methotrexat e 2.5 mg tablet 2021-0 20 00:00: 00 Yes TAKE 6 TABLET BY ORAL ROUTE EVERY WEEK FOR PSA [facility] methotrexat e 2.5 mg tablet 2021-0 20 00:00: 00 Yes TAKE 6 TABLET BY ORAL ROUTE EVERY WEEK FOR PSA [facility] methotrexat e 2.5 mg tablet 2021-0 20 00:00: 00 Yes TAKE 6 TABLET BY ORAL ROUTE EVERY WEEK FOR PSA [facility] methotrexat e 2.5 mg tablet 2021-0 20 00:00: 00 Yes TAKE 6 TABLET BY ORAL ROUTE EVERY WEEK FOR PSA [facility] methotrexat e 2.5 mg tablet 2021-0 -20 00:00: 00 Yes TAKE 6 TABLET BY ORAL ROUTE EVERY WEEK FOR PSA [facility] methotrexat e 2.5 mg tablet 2021-0 -20 00:00: 00 Yes TAKE 6 TABLET BY ORAL ROUTE EVERY WEEK FOR PSA [facility] methotrexat e 2.5 mg tablet 2021-0 -20 00:00: 00 Yes TAKE 6 TABLET BY ORAL ROUTE EVERY WEEK FOR PSA [facility] methotrexat e 2.5 mg tablet 2021-0 20 00:00: 00 Yes TAKE 6 TABLET BY ORAL ROUTE EVERY WEEK FOR PSA [facility] methotrexat e 2.5 mg tablet 2021-0 20 00:00: 00 Yes TAKE 6 TABLET BY ORAL ROUTE EVERY WEEK FOR PSA [facility] methotrexat e 2.5 mg tablet 2021-0 20 00:00: 00 Yes TAKE 6 TABLET BY ORAL ROUTE EVERY WEEK FOR PSA [facility] methotrexat e 2.5 mg tablet 2021-0 20 00:00: 00 Yes TAKE 6 TABLET BY ORAL ROUTE EVERY WEEK FOR PSA [facility] methotrexat e 2.5 mg tablet 2021-0 20 00:00: 00 Yes TAKE 6 TABLET BY ORAL ROUTE EVERY WEEK FOR PSA [facility] methotrexat e 2.5 mg tablet 2021-0 20 00:00: 00 Yes TAKE 6 TABLET BY ORAL ROUTE EVERY WEEK FOR PSA [facility] methotrexat e 2.5 mg tablet 2021-0 20 00:00: 00 Yes TAKE 6 TABLET BY ORAL ROUTE EVERY WEEK FOR PSA [facility] methotrexat e 2.5 mg tablet 2021-0 20 00:00: 00 Yes TAKE 6 TABLET BY ORAL ROUTE EVERY WEEK FOR PSA [facility] methotrexat e 2.5 mg tablet 2021-0 20 00:00: 00 Yes TAKE 6 TABLET BY ORAL ROUTE EVERY WEEK FOR PSA [facility] methotrexat e 2.5 mg tablet 2021-0 20 00:00: 00 Yes TAKE 6 TABLET BY ORAL ROUTE EVERY WEEK FOR PSA [facility] methotrexat e 2.5 mg tablet 0 -20 00:00: 00 Yes TAKE 6 TABLET BY ORAL ROUTE EVERY WEEK FOR PSA [facility] methotrexat e 2.5 mg tablet 0 20 00:00: 00 Yes TAKE 6 TABLET BY ORAL ROUTE EVERY WEEK FOR PSA [facility] methotrexat e 2.5 mg tablet 0 03-06 00:00: 00 Yes TAKE 6 TABLET BY ORAL ROUTE EVERY WEEK FOR PSA [facility] ESCITALOPRA M OXALATE 10 mg tablet 0 02-27 00:00: 00 Yes [id number] 10mg TAKE 1 TABLET BY MOUTH DAILY [facility] ESCITALOPRA M OXALATE 10 mg tablet 0 02-27 00:00: 00 Yes [id number] 10mg TAKE 1 TABLET BY MOUTH DAILY [facility] ESCITALOPRA M OXALATE 10 mg tablet 0 02-27 00:00: 00 Yes [id number] 10mg TAKE 1 TABLET BY MOUTH DAILY [facility] ESCITALOPRA M OXALATE 10 mg tablet 0 02-27 00:00: 00 Yes [id number] 10mg TAKE 1 TABLET BY MOUTH DAILY [facility] ESCITALOPRA M OXALATE 10 mg tablet 0 02-27 00:00: 00 Yes [id number] 10mg TAKE 1 TABLET BY MOUTH DAILY [facility] ESCITALOPRA M OXALATE 10 mg tablet 0 02-27 00:00: 00 Yes [id number] 10mg TAKE 1 TABLET BY MOUTH DAILY [facility] ESCITALOPRA M OXALATE 10 mg tablet 0 02-27 00:00: 00 Yes [id number] 10mg TAKE 1 TABLET BY MOUTH DAILY [facility] ESCITALOPRA M OXALATE 10 mg tablet 0 02-27 00:00: 00 Yes [id number] 10mg TAKE 1 TABLET BY MOUTH DAILY [facility] ESCITALOPRA M OXALATE 10 mg tablet 2021-0 02-27 00:00: 00 Yes [id number] 10mg TAKE 1 TABLET BY MOUTH DAILY [facility] ESCITALOPRA M OXALATE 10 mg tablet 0 -13 00:00: 00 Yes [id number] 10mg TAKE 1 TABLET BY MOUTH DAILY [facility] ESCITALOPRA M OXALATE 10 mg tablet 0 - 00:00: 00 Yes [id number] 10mg TAKE 1 TABLET BY MOUTH DAILY [facility] ESCITALOPRA M OXALATE 10 mg tablet 0 02-27 00:00: 00 Yes [id number] 10mg TAKE 1 TABLET BY MOUTH DAILY [facility] ESCITALOPRA M OXALATE 10 mg tablet 13 00:00: 00 09-04 00:00 :00 No [id number] 10mg TAKE 1 TABLET BY MOUTH DAILY [facility] amoxicillin -clavulanat e 875-125 mg per tablet 0 - 00:00: 00 Yes 1{tbl} Take 1 tablet by mouth every 12 (twelve) hours. [facility] amoxicillin -clavulanat e 875-125 mg per tablet 0 01-21 00:00: 00 Yes 1{tbl} Take 1 tablet by mouth every 12 (twelve) hours. [facility] amoxicillin -clavulanat e 875-125 mg per tablet 0 07 00:00: 00 Yes 1{tbl} Take 1 tablet by mouth every 12 (twelve) hours. [facility] amoxicillin -clavulanat e 875-125 mg per tablet 0 -07 00:00: 00 Yes 1{tbl} Take 1 tablet by mouth every 12 (twelve) hours. [facility] amoxicillin -clavulanat e 875-125 mg per tablet 0 -07 00:00: 00 Yes 1{tbl} Take 1 tablet by mouth every 12 (twelve) hours. [facility] amoxicillin -clavulanat e 875-125 mg per tablet 0 -07 00:00: 00 Yes 1{tbl} Take 1 tablet by mouth every 12 (twelve) hours. [facility] amoxicillin -clavulanat e 875-125 mg per tablet 0 -07 00:00: 00 Yes 1{tbl} Take 1 tablet by mouth every 12 (twelve) hours. [facility] amoxicillin -clavulanat e 875-125 mg per tablet 2021-0 5-07 00:00: 00 Yes 1{tbl} Take 1 tablet by mouth every 12 (twelve) hours. [facility] amoxicillin -clavulanat e 875-125 mg per tablet 2021-0 5-07 00:00: 00 Yes 1{tbl} Take 1 tablet by mouth every 12 (twelve) hours. [facility] amoxicillin -clavulanat e 875-125 mg per tablet 2021-0 5-07 00:00: 00 Yes 1{tbl} Take 1 tablet by mouth every 12 (twelve) hours. [facility] amoxicillin -clavulanat e 875-125 mg per tablet 2021-0 5-07 00:00: 00 Yes 1{tbl} Take 1 tablet by mouth every 12 (twelve) hours. [facility] amoxicillin -clavulanat e 875-125 mg per tablet 2021-0 -07 00:00: 00 Yes 1{tbl} Take 1 tablet by mouth every 12 (twelve) hours. [facility] amoxicillin -clavulanat e 875-125 mg per tablet 2021-0 -07 00:00: 00 Yes 1{tbl} Take 1 tablet by mouth every 12 (twelve) hours. [facility] amoxicillin -clavulanat e 875-125 mg per tablet 2021-0 5-07 00:00: 00 Yes 1{tbl} Take 1 tablet by mouth every 12 (twelve) hours. [facility] amoxicillin -clavulanat e 875-125 mg per tablet 2021-0 5-07 00:00: 00 Yes 1{tbl} Take 1 tablet by mouth every 12 (twelve) hours. [facility] amoxicillin -clavulanat e 875-125 mg per tablet 2021-0 5-07 00:00: 00 Yes 1{tbl} Take 1 tablet by mouth every 12 (twelve) hours. [facility] amoxicillin -clavulanat e 875-125 mg per tablet 2021-0 5-07 00:00: 00 Yes 1{tbl} Take 1 tablet by mouth every 12 (twelve) hours. [facility] amoxicillin -clavulanat e 875-125 mg per tablet 01-21 00:00: 00 Yes 1{tbl} Take 1 tablet by mouth every 12 (twelve) hours. [facility] amoxicillin -clavulanat e 875-125 mg per tablet 01-21 00:00: 00 Yes 1{tbl} Take 1 tablet by mouth every 12 (twelve) hours. [facility] amoxicillin -clavulanat e 875-125 mg per tablet 01-21 00:00: 00 Yes 1{tbl} Take 1 tablet by mouth every 12 (twelve) hours. [facility] amoxicillin -clavulanat e 875-125 mg per tablet 01-21 00:00: 00 Yes 1{tbl} Take 1 tablet by mouth every 12 (twelve) hours. [facility] amoxicillin -clavulanat e 875-125 mg per tablet 01-21 00:00: 00 03-22 00:00 :00 No 1{tbl} Take 1 tablet by mouth every 12 (twelve) hours. [facility] amoxicillin -clavulanat e 875-125 mg per tablet 01-21 00:00: 00 03-22 00:00 :00 No 1{tbl} Take 1 tablet by mouth every 12 (twelve) hours. [facility] amoxicillin -clavulanat e 875-125 mg per tablet 01-21 00:00: 00 03-22 00:00 :00 No 1{tbl} Take 1 tablet by mouth every 12 (twelve) hours. [facility] FUROSEMIDE 20 mg tablet 12-26 00:00: 00 Yes [id number] 20mg TAKE 1 TABLET BY MOUTH EVERY MORNING [facility] FUROSEMIDE 20 mg tablet -11 00:00: 00 Yes [id number] 20mg TAKE 1 TABLET BY MOUTH EVERY MORNING [facility] FUROSEMIDE 20 mg tablet 4-11 00:00: 00 Yes [id number] 20mg TAKE 1 TABLET BY MOUTH EVERY MORNING [facility] FUROSEMIDE 20 mg tablet 2021-0 4-11 00:00: 00 Yes [id number] 20mg TAKE 1 TABLET BY MOUTH EVERY MORNING [facility] FUROSEMIDE 20 mg tablet 2021-0 - 00:00: 00 Yes [id number] 20mg TAKE 1 TABLET BY MOUTH EVERY MORNING [facility] FUROSEMIDE 20 mg tablet 2021-0 4- 00:00: 00 Yes [id number] 20mg TAKE 1 TABLET BY MOUTH EVERY MORNING [facility] FUROSEMIDE 20 mg tablet 2021-0 - 00:00: 00 Yes [id number] 20mg TAKE 1 TABLET BY MOUTH EVERY MORNING [facility] FUROSEMIDE 20 mg tablet 2021-0 - 00:00: 00 Yes [id number] 20mg TAKE 1 TABLET BY MOUTH EVERY MORNING [facility] FUROSEMIDE 20 mg tablet 2021-0 - 00:00: 00 Yes [id number] 20mg TAKE 1 TABLET BY MOUTH EVERY MORNING [facility] FUROSEMIDE 20 mg tablet 2021-0 - 00:00: 00 Yes [id number] 20mg TAKE 1 TABLET BY MOUTH EVERY MORNING [facility] FUROSEMIDE 20 mg tablet 2021-0 - 00:00: 00 Yes [id number] 20mg TAKE 1 TABLET BY MOUTH EVERY MORNING [facility] FUROSEMIDE 20 mg tablet 2021-0 - 00:00: 00 Yes [id number] 20mg TAKE 1 TABLET BY MOUTH EVERY MORNING [facility] FUROSEMIDE 20 mg tablet 2021-0 - 00:00: 00 Yes [id number] 20mg TAKE 1 TABLET BY MOUTH EVERY MORNING [facility] FUROSEMIDE 20 mg tablet 2021-0 - 00:00: 00 Yes [id number] 20mg TAKE 1 TABLET BY MOUTH EVERY MORNING [facility] FUROSEMIDE 20 mg tablet 2021-0 - 00:00: 00 Yes [id number] 20mg TAKE 1 TABLET BY MOUTH EVERY MORNING [facility] FUROSEMIDE 20 mg tablet 2021-0 - 00:00: 00 10-04 00:00 :00 No [id number] 20mg TAKE 1 TABLET BY MOUTH EVERY MORNING [facility] ESTRADIOL 1 mg tablet 2021-0 2-09 00:00: 00 Yes [id number] 1mg TAKE 1 TABLET BY MOUTH DAILY [facility] ESTRADIOL 1 mg tablet 0 2-09 00:00: 00 Yes [id number] 1mg TAKE 1 TABLET BY MOUTH DAILY [facility] ESTRADIOL 1 mg tablet 0 2-09 00:00: 00 Yes [id number] 1mg TAKE 1 TABLET BY MOUTH DAILY [facility] ESTRADIOL 1 mg tablet 0 2- 00:00: 00 Yes [id number] 1mg TAKE 1 TABLET BY MOUTH DAILY [facility] ESTRADIOL 1 mg tablet 0 2- 00:00: 00 Yes [id number] 1mg TAKE 1 TABLET BY MOUTH DAILY [facility] ESTRADIOL 1 mg tablet 0 - 00:00: 00 Yes [id number] 1mg TAKE 1 TABLET BY MOUTH DAILY [facility] ESTRADIOL 1 mg tablet 0 - 00:00: 00 Yes [id number] 1mg TAKE 1 TABLET BY MOUTH DAILY [facility] ESTRADIOL 1 mg tablet 0 10-26 00:00: 00 Yes [id number] 1mg TAKE 1 TABLET BY MOUTH DAILY [facility] ESTRADIOL 1 mg tablet 0 10-26 00:00: 00 05-02 00:00 :00 No [id number] 1mg TAKE 1 TABLET BY MOUTH DAILY [facility] benzonatate 100 mg capsule 2021-0 -15 00:00: 00 Yes [id number] 100mg Take 1 capsule by mouth every 8 (eight) hours as needed for Cough. [facility] benzonatate 100 mg capsule 2021-0 1-15 00:00: 00 Yes [id number] 100mg Take 1 capsule by mouth every 8 (eight) hours as needed for Cough. [facility] benzonatate 100 mg capsule 2-0 1-15 00:00: 00 Yes [id number] 100mg Take 1 capsule by mouth every 8 (eight) hours as needed for Cough. [facility] benzonatate 100 mg capsule 2-0 1-15 00:00: 00 Yes [id number] 100mg Take 1 capsule by mouth every 8 (eight) hours as needed for Cough. [facility] benzonatate 100 mg capsule 2022-0 1-15 00:00: 00 Yes [id number] 100mg Take 1 capsule by mouth every 8 (eight) hours as needed [facility]ough[facility] mg capsule 2022-0 1-15 00:00: 00 Yes [id number] 100mg Take 1 capsule by mouth every 8 (eight) hours as needed for Cough. [facility] ben[facility] 100 mg capsule 2022-0 1-15 00:00: 00 Yes [id number] 100mg Take 1 capsule by mouth every 8 (eight) hours as needed for Cough. [facility] benzonatate 100 mg capsule 2022-0 1-15 00:00: 00 Yes [id number] 100mg Take 1 capsule by mouth every 8 (eight) hours as needed for Cough. [facility] benzonatate 100 mg capsule 2022-0 1-15 00:00: 00 Yes [id number] 100mg Take 1 capsule by mouth every 8 (eight) hours as needed for Cough. [facility] benzonatate 100 mg capsule 2022-0 1-15 00:00: 00 Yes [id number] 100mg Take 1 capsule by mouth every 8 (eight) hours as needed for Cough. [facility] benzonatate 100 mg capsule 2-0 1-15 00:00: 00 Yes [id number] 100mg Take 1 capsule by mouth every 8 (eight) hours as needed for Cough. [facility] benzonatate 100 mg capsule 2022-0 1-15 00:00: 00 Yes [id number] 100mg Take 1 capsule by mouth every 8 (eight) hours as needed for Cough. [facility] benzonatate 100 mg capsule 2022-0 1-15 00:00: 00 Yes [id number] 100mg Take 1 capsule by mouth every 8 (eight) hours as needed for Cough. [facility] benzonatate 100 mg capsule 2022-0 1-15 00:00: 00 Yes [id number] 100mg Take 1 capsule by mouth every 8 (eight) hours as needed for Cough. [facility] benzonatate 100 mg capsule 2022-0 1-15 00:00: 00 Yes [id number] 100mg Take 1 capsule by mouth every 8 (eight) hours as needed for Cough. [facility] benzon[facility]ate 100 mg capsule 2022-0 1-15 00:00: 00 Yes [id number] 100mg Take 1 capsule by mouth every 8 (eight) hours as needed for Cough. [facility] benzon[facility]ate 100 mg capsule 2022-0 1-15 00:00: 00 Yes [id number] 100mg Take 1 capsule by mouth every 8 (eight) hours as needed for Cough. [facility] benzonatate 100 mg capsule 2022-0 1-15 00:00: 00 Yes [id number] 100mg Take 1 capsule by mouth every 8 (eight) hours as needed for Cough. [facility] benzonatate 100 mg capsule 2022-0 1-15 00:00: 00 Yes [id number] 100mg Take 1 capsule by mouth every 8 (eight) hours as needed for Cough. [facility] benzonatate 100 mg capsule 2022-0 1-15 00:00: 00 Yes [id number] 100mg Take 1 capsule by mouth every 8 (eight) hours as needed for Cough. [facility] benzonatate 100 mg capsule 2022-0 1-15 00:00: 00 Yes [id number] 100mg Take 1 capsule by mouth every 8 (eight) hours as needed for Cough. [facility] benzonatate 100 mg capsule 2022-0 1-15 00:00: 00 Yes [id number] 100mg Take 1 capsule by mouth every 8 (eight) hours as needed for Cough. [facility] benzonatate 100 mg capsule 2022-0 1-15 00:00: 00 Yes [id number] 100mg Take 1 capsule by mouth every 8 (eight) hours as needed for Cough. [facility] benzonatate 100 mg capsule 2022-0 1-15 00:00: 00 Yes [id number] 100mg Take 1 capsule by mouth every 8 (eight) hours as needed for Cough. [facility] benzonatate 100 mg capsule 2022-0 1-15 00:00: 00 Yes [id number] 100mg Take 1 capsule by mouth every 8 (eight) hours as needed for Cough. [facility] benzonatate 100 mg capsule 2-0 -15 00:00: 00 Yes [id number] 100mg Take 1 capsule by mouth every 8 (eight) hours as needed for Cough. [facility] benzonatate 100 mg capsule 2021-0 -15 00:00: 00 Yes [id number] 100mg Take 1 capsule by mouth every 8 (eight) hours as needed for Cough. [facility] benzonatate 100 mg capsule 0 -15 00:00: 00 Yes [id number] 100mg Take 1 capsule by mouth every 8 (eight) hours as needed for Cough. [facility] benzonatate 100 mg capsule 0 -15 00:00: 00 Yes [id number] 100mg Take 1 capsule by mouth every 8 (eight) hours as needed for Cough. [facility] benzonatate 100 mg capsule 2021-0 -15 00:00: 00 Yes [id number] 100mg Take 1 capsule by mouth every 8 (eight) hours as needed for Cough. [facility] benzonatate 100 mg capsule 0 15 00:00: 00 Yes [id number] 100mg Take 1 capsule by mouth every 8 (eight) hours as needed for Cough. [facility] budesonide- formoteroL (SYMBICORT) 160-4.5 mcg/actuati on inhaler 2020-09 00:00: 00 Yes [id number] 2{puff} Inhale 2 Puffs 2 (two) times daily. [facility] metoprolol succinate XL 100 mg 24 hr tablet 2020-09 00:00: 00 Yes [id number] 100mg Take 1 tablet by mouth daily. [facility] budesonide- formoteroL (SYMBICORT) 160-4.5 mcg/actuati on inhaler 2020-09 00:00: 00 Yes [id number] 2{puff} Inhale 2 Puffs 2 (two) times daily. [facility] metoprolol succinate XL 100 mg 24 hr tablet 2020-09 00:00: 00 Yes [id number] 100mg Take 1 tablet by mouth daily. [facility] budesonide- formoteroL (SYMBICORT) 160-4.5 mcg/actuati on inhaler 2020-09 00:00: 00 Yes [id number] 2{puff} Inhale 2 Puffs 2 (two) times daily. [facility] metoprolol succinate XL 100 mg 24 hr tablet 2020-09 00:00: 00 Yes [id number] 100mg Take 1 tablet by mouth daily. [facility] budesonide- formoteroL (SYMBICORT) 160-4.5 mcg/actuati on inhaler 2020-09 00:00: 00 Yes [id number] 2{puff} Inhale 2 Puffs 2 (two) times daily. [facility] metoprolol succinate XL 100 mg 24 hr tablet 2020-09 00:00: 00 Yes [id number] 100mg Take 1 tablet by mouth daily. [facility] budesonide- formoteroL (SYMBICORT) 160-4.5 mcg/actuati on inhaler 2020-09 00:00: 00 Yes [id number] 2{puff} Inhale 2 Puffs 2 (two) times daily. [facility] metoprolol succinate XL 100 mg 24 hr tablet 2020-09 00:00: 00 Yes [id number] 100mg Take 1 tablet by mouth daily. [facility] budesonide- formoteroL (SYMBICORT) 160-4.5 mcg/actuati on inhaler 2020-09 00:00: 00 Yes [id number] 2{puff} Inhale 2 Puffs 2 (two) times daily. [facility] metoprolol succinate XL 100 mg 24 hr tablet 2020-09 00:00: 00 Yes [id number] 100mg Take 1 tablet by mouth daily. [facility] budesonide- formoteroL (SYMBICORT) 160-4.5 mcg/actuati on inhaler 2020-09 00:00: 00 Yes [id number] 2{puff} Inhale 2 Puffs 2 (two) times daily. [facility] metoprolol succinate XL 100 mg 24 hr tablet 2020-09 00:00: 00 Yes [id number] 100mg Take 1 tablet by mouth daily. [facility] budesonide- formoteroL (SYMBICORT) 160-4.5 mcg/actuati on inhaler 2020-09 00:00: 00 Yes [id number] 2{puff} Inhale 2 Puffs 2 (two) times daily. [facility] metoprolol succinate XL 100 mg 24 hr tablet 2020-09 00:00: 00 Yes [id number] 100mg Take 1 tablet by mouth daily. [facility] budesonide- formoteroL (SYMBICORT) 160-4.5 mcg/actuati on inhaler 2020-09 00:00: 00 Yes [id number] 2{puff} Inhale 2 Puffs 2 (two) times daily. [facility] metoprolol succinate XL 100 mg 24 hr tablet 2020-09 00:00: 00 Yes [id number] 100mg Take 1 tablet by mouth daily. [facility] budesonide- formoteroL (SYMBICORT) 160-4.5 mcg/actuati on inhaler 2020-09 00:00: 00 Yes [id number] 2{puff} Inhale 2 Puffs 2 (two) times daily. [facility] metoprolol succinate XL 100 mg 24 hr tablet 2020-09 00:00: 00 Yes [id number] 100mg Take 1 tablet by mouth daily. [facility] budesonide- formoteroL (SYMBICORT) 160-4.5 mcg/actuati on inhaler 2020-09 00:00: 00 Yes [id number] 2{puff} Inhale 2 Puffs 2 (two) times daily. [facility] metoprolol succinate XL 100 mg 24 hr tablet 2020-09 00:00: 00 Yes [id number] 100mg Take 1 tablet by mouth daily. [facility] budesonide- formoteroL (SYMBICORT) 160-4.5 mcg/actuati on inhaler 2020-09 00:00: 00 Yes [id number] 2{puff} Inhale 2 Puffs 2 (two) times daily. [facility] budesonide- formoteroL (SYMBICORT) 160-4.5 mcg/actuati on inhaler 2020-09 00:00: 00 Yes [id number] 2{puff} Inhale 2 Puffs 2 (two) times daily. [facility] budesonide- formoteroL (SYMBICORT) 160-4.5 mcg/actuati on inhaler 2020-09 00:00: 00 Yes [id number] 2{puff} Inhale 2 Puffs 2 (two) times daily. [facility] budesonide- formoteroL (SYMBICORT) 160-4.5 mcg/actuati on inhaler 2020-09 00:00: 00 Yes [id number] 2{puff} Inhale 2 Puffs 2 (two) times daily. [facility] budesonide- formoteroL (SYMBICORT) 160-4.5 mcg/actuati on inhaler 2020-09 00:00: 00 Yes [id number] 2{puff} Inhale 2 Puffs 2 (two) times daily. [facility] budesonide- formoteroL (SYMBICORT) 160-4.5 mcg/actuati on inhaler 2020-09 00:00: 00 Yes [id number] 2{puff} Inhale 2 Puffs 2 (two) times daily. [facility] budesonide- formoteroL (SYMBICORT) 160-4.5 mcg/actuati on inhaler 2020-09 00:00: 00 Yes [id number] 2{puff} Inhale 2 Puffs 2 (two) times daily. [facility] budesonide- formoteroL (SYMBICORT) 160-4.5 mcg/actuati on inhaler 2020-09 00:00: 00 Yes [id number] 2{puff} Inhale 2 Puffs 2 (two) times daily. [facility] budesonide- formoteroL (SYMBICORT) 160-4.5 mcg/actuati on inhaler 2020-09 00:00: 00 Yes [id number] 2{puff} Inhale 2 Puffs 2 (two) times daily. [facility] budesonide- formoteroL (SYMBICORT) 160-4.5 mcg/actuati on inhaler 2020-09 00:00: 00 Yes [id number] 2{puff} Inhale 2 Puffs 2 (two) times daily. [facility] budesonide- formoteroL (SYMBICORT) 160-4.5 mcg/actuati on inhaler 2020-09 00:00: 00 Yes [id number] 2{puff} Inhale 2 Puffs 2 (two) times daily. [facility] budesonide- formoteroL (SYMBICORT) 160-4.5 mcg/actuati on inhaler 2020-09 00:00: 00 Yes [id number] 2{puff} Inhale 2 Puffs 2 (two) times daily. [facility] budesonide- formoteroL (SYMBICORT) 160-4.5 mcg/actuati on inhaler 2020-09 00:00: 00 Yes [id number] 2{puff} Inhale 2 Puffs 2 (two) times daily. [facility] budesonide- formoteroL (SYMBICORT) 160-4.5 mcg/actuati on inhaler 2020-09 00:00: 00 Yes [id number] 2{puff} Inhale 2 Puffs 2 (two) times daily. [facility] budesonide- formoteroL (SYMBICORT) 160-4.5 mcg/actuati on inhaler 2020-09 00:00: 00 Yes [id number] 2{puff} Inhale 2 Puffs 2 (two) times daily. [facility] budesonide- formoteroL (SYMBICORT) 160-4.5 mcg/actuati on inhaler 2020-09 00:00: 00 Yes [id number] 2{puff} Inhale 2 Puffs 2 (two) times daily. [facility] budesonide- formoteroL (SYMBICORT) 160-4.5 mcg/actuati on inhaler 2020-09 00:00: 00 Yes [id number] 2{puff} Inhale 2 Puffs 2 (two) times daily. [facility] budesonide- formoteroL (SYMBICORT) 160-4.5 mcg/actuati on inhaler 2020-09 00:00: 00 Yes [id number] 2{puff} Inhale 2 Puffs 2 (two) times daily. [facility] budesonide- formoteroL (SYMBICORT) 160-4.5 mcg/actuati on inhaler 2020-09 00:00: 00 Yes [id number] 2{puff} Inhale 2 Puffs 2 (two) times daily. [facility] budesonide- formoteroL (SYMBICORT) 160-4.5 mcg/actuati on inhaler 2020-09 00:00: 00 Yes [id number] 2{puff} Inhale 2 Puffs 2 (two) times daily. [facility] metoprolol succinate XL 100 mg 24 hr tablet 2020-09 00:00: 00 08-07 00:00 :00 No [id number] 100mg Take 1 tablet by mouth daily. [facility] TREMFYA 100 mg/mL patient-con trolled injector 0 9-15 00:00: 00 Yes [facility] TREMFYA 100 mg/mL patient-con trolled injector 2020-0 9-15 00:00: 00 Yes [facility] TREMFYA 100 mg/mL patient-con trolled injector 0 9-15 00:00: 00 Yes [facility] TREMFYA 100 mg/mL patient-con trolled injector 0 9-15 00:00: 00 Yes [facility] TREMFYA 100 mg/mL patient-con trolled injector 0 9-15 00:00: 00 Yes [facility] TREMFYA 100 mg/mL patient-con trolled injector 1-0 9-15 00:00: 00 Yes [facility] TREMFYA 100 mg/mL patient-con trolled injector 1-0 9-15 00:00: 00 Yes [facility] TREMFYA 100 mg/mL patient-con trolled injector 1-0 9-15 00:00: 00 Yes [facility] TREMFYA 100 mg/mL patient-con trolled injector 1-0 9-15 00:00: 00 Yes [facility] TREMFYA 100 mg/mL patient-con trolled injector 1-0 9-15 00:00: 00 Yes [facility] TREMFYA 100 mg/mL patient-con trolled injector 1-0 9-15 00:00: 00 Yes [facility] TREMFYA 100 mg/mL patient-con trolled injector 1-0 9-15 00:00: 00 Yes [facility] TREMFYA 100 mg/mL patient-con trolled injector 1-0 9-15 00:00: 00 Yes [facility] TREMFYA 100 mg/mL patient-con trolled injector 1-0 9-15 00:00: 00 Yes [facility] TREMFYA 100 mg/mL patient-con trolled injector 1-0 9-15 00:00: 00 Yes [facility] TREMFYA 100 mg/mL patient-con trolled injector 1-0 9-15 00:00: 00 Yes [facility] TREMFYA 100 mg/mL patient-con trolled injector 1-0 9-15 00:00: 00 Yes [facility] TREMFYA 100 mg/mL patient-con trolled injector 1-0 9-15 00:00: 00 Yes [facility] TREMFYA 100 mg/mL patient-con trolled injector 1-0 9-15 00:00: 00 Yes [facility] TREMFYA 100 mg/mL patient-con trolled injector 1-0 9-15 00:00: 00 Yes [facility] TREMFYA 100 mg/mL patient-con trolled injector 1-0 9-15 00:00: 00 Yes [facility] TREMFYA 100 mg/mL patient-con trolled injector 1-0 9-15 00:00: 00 Yes [facility] TREMFYA 100 mg/mL patient-con trolled injector 1-0 9-15 00:00: 00 Yes [facility] TREMFYA 100 mg/mL patient-con trolled injector 1-0 9-15 00:00: 00 Yes [facility] TREMFYA 100 mg/mL patient-con trolled injector 1-0 9-15 00:00: 00 Yes [facility] TREMFYA 100 mg/mL patient-con trolled injector 1-0 9-15 00:00: 00 Yes [facility] TREMFYA 100 mg/mL patient-con trolled injector 1-0 9-15 00:00: 00 Yes [facility] TREMFYA 100 mg/mL patient-con trolled injector 1-0 9-15 00:00: 00 Yes [facility] TREMFYA 100 mg/mL patient-con trolled injector 1-0 9-15 00:00: 00 Yes [facility] TREMFYA 100 mg/mL patient-con trolled injector 1-0 9-15 00:00: 00 Yes [facility] TREMFYA 100 mg/mL patient-con trolled injector 1-0 -15 00:00: 00 Yes [facility] dicyclomine 10 mg capsule 24 00:00: 00 Yes [id number] TAKE 1 CAPSULE BY MOUTH TWICE DAILY NEEDED FOR ABDOMINAL PAIN [facility] Dexlansopra zole (DEXILANT) 60 mg capsule 0 -24 00:00: 00 Yes [id number] 60mg Take 1 capsule by mouth daily. [facility] dicyclomine 10 mg capsule 2020-0 24 00:00: 00 Yes [id number] TAKE 1 CAPSULE BY MOUTH TWICE DAILY [facility]DEXILANT[facility] 60 mg capsule 2020-0 02-07 00:00: 00 Yes [id number] 60mg Take 1 capsule by mouth daily. [facility] dicyclomine 10 mg capsule 2020-0 24 00:00: 00 Yes [id number] TAKE 1 CAPSULE BY MOUTH TWICE DAILY NEEDED FOR ABDOMINAL PAIN [facility] dicyclomine 10 mg capsule 2020-0 24 00:00: 00 Yes [id number] TAKE 1 CAPSULE BY MOUTH TWICE DAILY [facility] 2020-0 02-07 00:00: 00 Yes [id number] TAKE 1 CAPSULE BY MOUTH TWICE DAILY NEEDED FOR ABDOMINAL PAIN [facility] dicyclomine 10 mg capsule 2020-0 02-07 00:00: 00 Yes [id number] TAKE 1 CAPSULE BY MOUTH TWICE DAILY [facility] 2020-0 24 00:00: 00 Yes [id number] TAKE 1 CAPSULE BY MOUTH TWICE DAILY [facility] 2020-0 24 00:00: 00 Yes [id number] TAKE 1 CAPSULE BY MOUTH TWICE DAILY NEEDED FOR ABDOMINAL PAIN [facility] dicyclomine 10 mg capsule 2020-0 24 00:00: 00 Yes [id number] TAKE 1 CAPSULE BY MOUTH TWICE DAILY NEEDED FOR ABDOMINAL PAIN [facility] dicyclomine 10 mg capsule 1-0 24 00:00: 00 Yes [id number] TAKE 1 CAPSULE BY MOUTH TWICE DAILY [facility] 2020-0 24 00:00: 00 Yes [id number] TAKE 1 CAPSULE BY MOUTH TWICE DAILY [facility] 1-0 24 00:00: 00 Yes [id number] TAKE 1 CAPSULE BY MOUTH TWICE DAILY NEEDED FOR ABDOMINAL PAIN [facility] dicyclomine 10 mg capsule 2021-0 24 00:00: 00 Yes [id number] TAKE 1 CAPSULE BY MOUTH TWICE DAILY NEEDED FOR ABDOMINAL PAIN [facility] dicyclomine 10 mg capsule 1-0 24 00:00: 00 Yes [id number] TAKE 1 CAPSULE BY MOUTH TWICE DAILY NEEDED FOR ABDOMINAL PAIN [facility] dicyclomine 10 mg capsule 2021-0 24 00:00: 00 Yes [id number] TAKE 1 CAPSULE BY MOUTH TWICE DAILY NEEDED FOR ABDOMINAL PAIN [facility] dicyclomine 10 mg capsule 1-0 24 00:00: 00 Yes [id number] TAKE 1 CAPSULE BY MOUTH TWICE DAILY NEEDED FOR ABDOMINAL PAIN [facility] dicyclomine 10 mg capsule 1-0 24 00:00: 00 Yes [id number] TAKE 1 CAPSULE BY MOUTH TWICE DAILY NEEDED FOR ABDOMINAL PAIN [facility] dicyclomine 10 mg capsule 1-0 24 00:00: 00 Yes [id number] TAKE 1 CAPSULE BY MOUTH TWICE DAILY NEEDED FOR ABDOMINAL PAIN [facility] dicyclomine 10 mg capsule 1-0 24 00:00: 00 Yes [id number] TAKE 1 CAPSULE BY MOUTH TWICE DAILY NEEDED FOR ABDOMINAL PAIN [facility] dicyclomine 10 mg capsule 1-0 24 00:00: 00 Yes [id number] TAKE 1 CAPSULE BY MOUTH TWICE DAILY NEEDED FOR ABDOMINAL PAIN [facility] dicyclomine 10 mg capsule 1-0 24 00:00: 00 Yes [id number] TAKE 1 CAPSULE BY MOUTH TWICE DAILY NEEDED FOR ABDOMINAL PAIN [facility] dicyclomine 10 mg capsule 2021-0 24 00:00: 00 Yes [id number] TAKE 1 CAPSULE BY MOUTH TWICE DAILY NEEDED FOR ABDOMINAL PAIN [facility] dicyclomine 10 mg capsule 1-0 24 00:00: 00 Yes [id number] TAKE 1 CAPSULE BY MOUTH TWICE DAILY NEEDED FOR ABDOMINAL PAIN [facility] dicyclomine 10 mg capsule 2021-0 24 00:00: 00 Yes [id number] TAKE 1 CAPSULE BY MOUTH TWICE DAILY NEEDED FOR ABDOMINAL PAIN [facility] dicyclomine 10 mg capsule 2020-0 02-07 00:00: 00 Yes [id number] TAKE 1 CAPSULE BY MOUTH TWICE DAILY NEEDED FOR ABDOMINAL PAIN [facility] dicyclomine 10 mg capsule 2020-0 02-07 00:00: 00 Yes [id number] TAKE 1 CAPSULE BY MOUTH TWICE DAILY NEEDED FOR ABDOMINAL PAIN [facility] dicyclomine 10 mg capsule 2020-0 02-07 00:00: 00 Yes [id number] TAKE 1 CAPSULE BY MOUTH TWICE DAILY NEEDED FOR ABDOMINAL PAIN [facility] dicyclomine 10 mg capsule 2020-0 02-07 00:00: 00 Yes [id number] TAKE 1 CAPSULE BY MOUTH TWICE DAILY [facility] 2020-0 02-07 00:00: 00 Yes [id number] TAKE 1 CAPSULE BY MOUTH TWICE DAILY NEEDED FOR ABDOMINAL PAIN [facility] dicyclomine 10 mg capsule 2020-0 02-07 00:00: 00 Yes [id number] TAKE 1 CAPSULE BY MOUTH TWICE DAILY NEEDED FOR ABDOMINAL PAIN [facility] dicyclomine 10 mg capsule 2020-0 02-07 00:00: 00 Yes [id number] TAKE 1 CAPSULE BY MOUTH TWICE DAILY NEEDED FOR ABDOMINAL PAIN [facility] dicyclomine 10 mg capsule 0 02-07 00:00: 00 Yes [id number] TAKE 1 CAPSULE BY MOUTH TWICE DAILY NEEDED FOR ABDOMINAL PAIN [facility] dicyclomine 10 mg capsule 2020-0 02-07 00:00: 00 Yes [id number] TAKE 1 CAPSULE BY MOUTH TWICE DAILY NEEDED FOR ABDOMINAL PAIN [facility] dicyclomine 10 mg capsule 2020-0 02-07 00:00: 00 Yes [id number] TAKE 1 CAPSULE BY MOUTH TWICE DAILY [facility] 2020-0 02-07 00:00: 00 Yes [id number] TAKE 1 CAPSULE BY MOUTH TWICE DAILY NEEDED FOR ABDOMINAL PAIN [facility] Dexlansopra zole (DEXILANT) 60 mg capsule 02-07 00:00: 00 04-07 00:00 :00 No [id number] 60mg Take 1 capsule by mouth daily. [facility] estradiol 1 tablet Q day estradiol 1 tablet Q day No estradiol 1 tablet Q day [facility] estradiol 0.025 mg/24 hr semiweekly transdermal patch Apply 1 patch twice weekly, for 3 weeks, off one week estradiol 0.025 mg/24 hr semiweekly transdermal patch Apply 1 patch twice weekly, for 3 weeks, off one week No estradiol 0.025 mg/24 hr semiweekly transderma l patch Apply 1 patch twice weekly, for 3 weeks, off one week [facility] estradiol 1 mg tablet TAKE 1 TABLET BY MOUTH DAILY estradiol 1 mg tablet TAKE 1 TABLET BY MOUTH DAILY No estradiol 1 mg tablet TAKE 1 TABLET BY MOUTH DAILY [facility] Pantoprazol e Sodium 40 MG Pantoprazol e Sodium 40 MG No 1{table t} QD Pantoprazo le Sodium 40 MG Escitalopra m Oxalate 10 MG Escitalopra m Oxalate 10 MG No 1{table t} QD Escitalopr am Oxalate 10 MG Estradiol 1 MG Estradiol 1 MG No 1{table t} QD Estradiol 1 MG Metoprolol Succinate ER 100 MG Metoprolol Succinate ER 100 MG No 1{table t} QD Metoprolol Succinate ER 100 MG Pantoprazol e Sodium 40 MG Pantoprazol e Sodium 40 MG No 1{table t} QD Pantoprazo le Sodium 40 MG Escitalopra m Oxalate 10 MG Escitalopra m Oxalate 10 MG No 1{table t} QD Escitalopr am Oxalate 10 MG Estradiol 1 MG Estradiol 1 MG No 1{table t} QD Estradiol 1 MG Metoprolol Succinate ER 100 MG Metoprolol Succinate ER 100 MG No 1{table t} QD Metoprolol Succinate ER 100 MG Pantoprazol e Sodium 40 MG Pantoprazol e Sodium 40 MG No 1{table t} QD Pantoprazo le Sodium 40 MG Escitalopra m Oxalate 10 MG Escitalopra m Oxalate 10 MG No 1{table t} QD Escitalopr am Oxalate 10 MG Estradiol 1 MG Estradiol 1 MG No 1{table t} QD Estradiol 1 MG Metoprolol Succinate ER 100 MG Metoprolol Succinate ER 100 MG No 1{table t} QD Metoprolol Succinate ER 100 MG Pantoprazol e Sodium 40 MG Pantoprazol e Sodium 40 MG No 1{table t} QD Pantoprazo le Sodium 40 MG Escitalopra m Oxalate 10 MG Escitalopra m Oxalate 10 MG No 1{table t} QD Escitalopr am Oxalate 10 MG Estradiol 1 MG Estradiol 1 MG No 1{table t} QD Estradiol 1 MG Metoprolol Succinate ER 100 MG Metoprolol Succinate ER 100 MG No 1{table t} QD Metoprolol Succinate ER 100 MG Pantoprazol e Sodium 40 MG Pantoprazol e Sodium 40 MG No 1{table t} QD Pantoprazo le Sodium 40 MG Escitalopra m Oxalate 10 MG Escitalopra m Oxalate 10 MG No 1{table t} QD Escitalopr am Oxalate 10 MG Estradiol 1 MG Estradiol 1 MG No 1{table t} QD Estradiol 1 MG Metoprolol Succinate ER 100 MG Metoprolol Succinate ER 100 MG No 1{table t} QD Metoprolol Succinate ER 100 MG Pantoprazol e Sodium 40 MG Pantoprazol e Sodium 40 MG No 1{table t} QD Pantoprazo le Sodium 40 MG Escitalopra m Oxalate 10 MG Escitalopra m Oxalate 10 MG No 1{table t} QD Escitalopr am Oxalate 10 MG Estradiol 1 MG Estradiol 1 MG No 1{table t} QD Estradiol 1 MG Metoprolol Succinate ER 100 MG Metoprolol Succinate ER 100 MG No 1{table t} QD Metoprolol Succinate ER 100 MG Pantoprazol e Sodium 40 MG Pantoprazol e Sodium 40 MG No 1{table t} QD Pantoprazo le Sodium 40 MG Escitalopra m Oxalate 10 MG Escitalopra m Oxalate 10 MG No 1{table t} QD Escitalopr am Oxalate 10 MG Estradiol 1 MG Estradiol 1 MG No 1{table t} QD Estradiol 1 MG Metoprolol Succinate ER 100 MG Metoprolol Succinate ER 100 MG No 1{table t} QD Metoprolol Succinate ER 100 MG Pantoprazol e Sodium 40 MG Pantoprazol e Sodium 40 MG No 1{table t} QD Pantoprazo le Sodium 40 MG Escitalopra m Oxalate 10 MG Escitalopra m Oxalate 10 MG No 1{table t} QD Escitalopr am Oxalate 10 MG Estradiol 1 MG Estradiol 1 MG No 1{table t} QD Estradiol 1 MG Metoprolol Succinate ER 100 MG Metoprolol Succinate ER 100 MG No 1{table t} QD Metoprolol Succinate ER 100 MG Pantoprazol e Sodium 40 MG Pantoprazol e Sodium 40 MG No 1{table t} QD Pantoprazo le Sodium 40 MG Escitalopra m Oxalate 10 MG Escitalopra m Oxalate 10 MG No 1{table t} QD Escitalopr am Oxalate 10 MG Estradiol 1 MG Estradiol 1 MG No 1{table t} QD Estradiol 1 MG Metoprolol Succinate ER 100 MG Metoprolol Succinate ER 100 MG No 1{table t} QD Metoprolol Succinate ER 100 MG Pantoprazol e Sodium 40 MG Pantoprazol e Sodium 40 MG No 1{table t} QD Pantoprazo le Sodium 40 MG Escitalopra m Oxalate 10 MG Escitalopra m Oxalate 10 MG No 1{table t} QD Escitalopr am Oxalate 10 MG Estradiol 1 MG Estradiol 1 MG No 1{table t} QD Estradiol 1 MG ALPRAZolam 0.5 MG ALPRAZolam 0.5 MG No BID ALPRAZolam 0.5 MG Estradiol 1 MG Estradiol 1 MG No 1{table t} QD Estradiol 1 MG Metoprolol Succinate ER 100 MG Metoprolol Succinate ER 100 MG No 1{table t} QD Metoprolol Succinate ER 100 MG Pantoprazol e Sodium 40 MG Pantoprazol e Sodium 40 MG No 1{table t} QD Pantoprazo le Sodium 40 MG Zepbound 10 MG/0.5ML Zepbound 10 MG/0.5ML No Zepbound 10 MG/0.5ML Escitalopra m Oxalate 10 MG Escitalopra m Oxalate 10 MG No 1{table t} QD Escitalopr am Oxalate 10 MG Metoprolol Succinate ER 100 MG Metoprolol Succinate ER 100 MG No 1{table t} QD Metoprolol Succinate ER 100 MG Escitalopra m Oxalate 10 MG Escitalopra m Oxalate 10 MG No 1{table t} QD Escitalopr am Oxalate 10 MG Estradiol 1 MG Estradiol 1 MG No 1{table t} QD Estradiol 1 MG Pantoprazol e Sodium 40 MG Pantoprazol e Sodium 40 MG No 1{table t} QD Pantoprazo le Sodium 40 MG ALPRAZolam 0.5 MG ALPRAZolam 0.5 MG No BID ALPRAZolam 0.5 MG Metoprolol Succinate ER 100 MG Metoprolol Succinate ER 100 MG No 1{table t} QD Metoprolol Succinate ER 100 MG Escitalopra m Oxalate 10 MG Escitalopra m Oxalate 10 MG No 1{table t} QD Escitalopr am Oxalate 10 MG Zepbound 10 MG/0.5ML Zepbound 10 MG/0.5ML No Zepbound 10 MG/0.5ML Escitalopra m Oxalate 10 MG Escitalopra m Oxalate 10 MG No 1{table t} QD Escitalopr am Oxalate 10 MG Metoprolol Succinate ER 100 MG Metoprolol Succinate ER 100 MG No 1{table t} QD Metoprolol Succinate ER 100 MG Estradiol 1 MG Estradiol 1 MG No 1{table t} QD Estradiol 1 MG Metoprolol Succinate ER 100 MG Metoprolol Succinate ER 100 MG No 1{table t} QD Metoprolol Succinate ER 100 MG Mounjaro 7.5 MG/0.5ML Mounjaro 7.5 MG/0.5ML No Mounjaro 7.5 MG/0.5ML Pantoprazol e Sodium 40 MG Pantoprazol e Sodium 40 MG No 1{table t} QD Pantoprazo le Sodium 40 MG Escitalopra m Oxalate 10 MG Escitalopra m Oxalate 10 MG No 1{table t} QD Escitalopr am Oxalate 10 MG Estradiol 1 MG Estradiol 1 MG No 1{table t} QD Estradiol 1 MG Escitalopra m Oxalate 10 MG Escitalopra m Oxalate 10 MG No 1{table t} QD Escitalopr am Oxalate 10 MG Estradiol 1 MG Estradiol 1 MG No 1{table t} QD Estradiol 1 MG Metoprolol Succinate ER 100 MG Metoprolol Succinate ER 100 MG No 1{table t} QD Metoprolol Succinate ER 100 MG Pantoprazol e Sodium 40 MG Pantoprazol e Sodium 40 MG No 1{table t} QD Pantoprazo le Sodium 40 MG Estradiol 1 MG Estradiol 1 MG No 1{table t} QD Estradiol 1 MG Metoprolol Succinate ER 100 MG Metoprolol Succinate ER 100 MG No 1{table t} QD Metoprolol Succinate ER 100 MG Pantoprazol e Sodium 40 MG Pantoprazol e Sodium 40 MG No 1{table t} QD Pantoprazo le Sodium 40 MG Escitalopra m Oxalate 10 MG Escitalopra m Oxalate 10 MG No 1{table t} QD Escitalopr am Oxalate 10 MG Estradiol 1 MG Estradiol 1 MG No 1{table t} QD Estradiol 1 MG Metoprolol Succinate ER 100 MG Metoprolol Succinate ER 100 MG No 1{table t} QD Metoprolol Succinate ER 100 MG estradiol 12.5 mg implant pellet 15 mg estradiol 12.5 mg implant pellet 15 mg No estradiol 12.5 mg implant pellet 15 mg [facility] furosemide 20 mg tablet TAKE 1 TABLET BY MOUTH EVERY MORNING furosemide 20 mg tablet TAKE 1 TABLET BY MOUTH EVERY MORNING No furosemide 20 mg tablet TAKE 1 TABLET BY MOUTH EVERY MORNING [facility] levofloxaci n 750 mg tablet TAKE 1 TABLET BY MOUTH EVERY DAY FOR 5 DAYS levofloxaci n 750 mg tablet TAKE 1 TABLET BY MOUTH EVERY DAY FOR 5 DAYS No levofloxac in 750 mg tablet TAKE 1 TABLET BY MOUTH EVERY DAY FOR 5 DAYS [facility] metoprolol succinate ER 100 mg tablet,exte nded release 24 hr TAKE 1 TABLET BY MOUTH DAILY metoprolol succinate ER 100 mg tablet,exte nded release 24 hr TAKE 1 TABLET BY MOUTH DAILY No metoprolol succinate ER 100 mg tablet,ext ended release 24 hr TAKE 1 TABLET BY MOUTH DAILY [facility] Mounjaro 5 mg/0.5 mL subcutaneou s pen injector INJECT ONE (1) PEN (5 MG) SUBCUTANEOU SLY EVERY WEEK. Mounjaro 5 mg/0.5 mL subcutaneou s pen injector INJECT ONE (1) PEN (5 MG) SUBCUTANEOU SLY EVERY WEEK. No Mounjaro 5 mg/0.5 mL subcutaneo us pen injector INJECT ONE (1) PEN (5 MG) SUBCUTANEO USLY EVERY WEEK. [facility] Mounjaro 7.5 mg/0.5 mL subcutaneou s pen injector Inject 0.5 mL every week by subcutaneou s route for 28 days. Mounjaro 7.5 mg/0.5 mL subcutaneou s pen injector Inject 0.5 mL every week by subcutaneou s route for 28 days. No .5mL Q1W Mounjaro 7.5 mg/0.5 mL subcutaneo us pen injector Inject 0.5 mL every week by subcutaneo us route for 28 days. [facility] pantoprazol e 40 mg tablet,leobardo yed release TAKE 1 TABLET BY MOUTH IN THE MORNING pantoprazol e 40 mg tablet,leobardo yed release TAKE 1 TABLET BY MOUTH IN THE MORNING No pantoprazo le 40 mg tablet,del ayed release TAKE 1 TABLET BY MOUTH IN THE MORNING [facility] prednisone 20 mg tablet TAKE 2 TABLETS BY MOUTH IN THE MORNING FOR 5 DAYS. prednisone 20 mg tablet TAKE 2 TABLETS BY MOUTH IN THE MORNING FOR 5 DAYS. No prednisone 20 mg tablet TAKE 2 TABLETS BY MOUTH IN THE MORNING FOR 5 DAYS. [facility] promethazin e-DM 6.25 mg-15 mg/5 mL oral syrup TAKE 5 ML BY MOUTH 4 (FOUR) TIMES DAILY FOR 5 DAYS. promethazin e-DM 6.25 mg-15 mg/5 mL oral syrup TAKE 5 ML BY MOUTH 4 (FOUR) TIMES DAILY FOR 5 DAYS. No promethazi ne-DM 6.25 mg-15 mg/5 mL oral syrup TAKE 5 ML BY MOUTH 4 (FOUR) TIMES DAILY FOR 5 DAYS. [facility] testosteron e 10 mg/0.5 gram/actuat ion transdermal gel pump Apply 10 mg every day by transdermal route as directed. testosteron e 10 mg/0.5 gram/actuat ion transdermal gel pump Apply 10 mg every day by transdermal route as directed. No 10mg Q1D testostero ne 10 mg/0.5 gram/actua tion transderma l gel pump Apply 10 mg every day by transderma l route as directed. [facility] testosteron e 100 mg implant pellet Take 162.5 mg by implantatio n route. testosteron e 100 mg implant pellet Take 162.5 mg by implantatio n route. No 162.5mg testostero ne 100 mg implant pellet Take 162.5 mg by implantati on route. [facility] alprazolam 1 mg tablet TAKE 1 TABLET BY MOUTH TWICE DAILY NEEDED FOR ANXIETY alprazolam 1 mg tablet TAKE 1 TABLET BY MOUTH TWICE DAILY NEEDED FOR ANXIETY No alprazolam 1 mg tablet TAKE 1 TABLET BY MOUTH TWICE DAILY NEEDED FOR ANXIETY [facility] escitalopra m 10 mg tablet TAKE 1 TABLET BY MOUTH DAILY escitalopra m 10 mg tablet TAKE 1 TABLET BY MOUTH DAILY No escitalopr am 10 mg tablet TAKE 1 TABLET BY MOUTH DAILY [facility] estradiol 1 tablet Q day estradiol 1 tablet Q day No estradiol 1 tablet Q day [facility] estradiol 0.025 mg/24 hr semiweekly transdermal patch Apply 1 patch twice weekly, for 3 weeks, off one week estradiol 0.025 mg/24 hr semiweekly transdermal patch Apply 1 patch twice weekly, for 3 weeks, off one week No estradiol 0.025 mg/24 hr semiweekly transderma l patch Apply 1 patch twice weekly, for 3 weeks, off one week [facility] estradiol 1 mg tablet TAKE 1 TABLET BY MOUTH DAILY estradiol 1 mg tablet TAKE 1 TABLET BY MOUTH DAILY No estradiol 1 mg tablet TAKE 1 TABLET BY MOUTH DAILY [facility] estradiol 12.5 mg implant pellet 15 mg estradiol 12.5 mg implant pellet 15 mg No estradiol 12.5 mg implant pellet 15 mg [facility] furosemide 20 mg tablet TAKE 1 TABLET BY MOUTH EVERY MORNING furosemide 20 mg tablet TAKE 1 TABLET BY MOUTH EVERY MORNING No furosemide 20 mg tablet TAKE 1 TABLET BY MOUTH EVERY MORNING [facility] levofloxaci n 750 mg tablet TAKE 1 TABLET BY MOUTH EVERY DAY FOR 5 DAYS levofloxaci n 750 mg tablet TAKE 1 TABLET BY MOUTH EVERY DAY FOR 5 DAYS No levofloxac in 750 mg tablet TAKE 1 TABLET BY MOUTH EVERY DAY FOR 5 DAYS [facility] metoprolol succinate ER 100 mg tablet,exte nded release 24 hr TAKE 1 TABLET BY MOUTH DAILY metoprolol succinate ER 100 mg tablet,exte nded release 24 hr TAKE 1 TABLET BY MOUTH DAILY No metoprolol succinate ER 100 mg tablet,ext ended release 24 hr TAKE 1 TABLET BY MOUTH DAILY [facility] Mounjaro 5 mg/0.5 mL subcutaneou s pen injector INJECT ONE (1) PEN (5 MG) SUBCUTANEOU SLY EVERY WEEK. Mounjaro 5 mg/0.5 mL subcutaneou s pen injector INJECT ONE (1) PEN (5 MG) SUBCUTANEOU SLY EVERY WEEK. No Mounjaro 5 mg/0.5 mL subcutaneo us pen injector INJECT ONE (1) PEN (5 MG) SUBCUTANEO USLY EVERY WEEK. [facility] Mounjaro 7.5 mg/0.5 mL subcutaneou s pen injector Inject 0.5 mL every week by subcutaneou s route for 28 days. Mounjaro 7.5 mg/0.5 mL subcutaneou s pen injector Inject 0.5 mL every week by subcutaneou s route for 28 days. No .5mL Q1W Mounjaro 7.5 mg/0.5 mL subcutaneo us pen injector Inject 0.5 mL every week by subcutaneo us route for 28 days. [facility] pantoprazol e 40 mg tablet,leobardo yed release TAKE 1 TABLET BY MOUTH IN THE MORNING pantoprazol e 40 mg tablet,leobardo yed release TAKE 1 TABLET BY MOUTH IN THE MORNING No pantoprazo le 40 mg tablet,del ayed release TAKE 1 TABLET BY MOUTH IN THE MORNING [facility] prednisone 20 mg tablet TAKE 2 TABLETS BY MOUTH IN THE MORNING FOR 5 DAYS. prednisone 20 mg tablet TAKE 2 TABLETS BY MOUTH IN THE MORNING FOR 5 DAYS. No prednisone 20 mg tablet TAKE 2 TABLETS BY MOUTH IN THE MORNING FOR 5 DAYS. [facility] promethazin e-DM 6.25 mg-15 mg/5 mL oral syrup TAKE 5 ML BY MOUTH 4 (FOUR) TIMES DAILY FOR 5 DAYS. promethazin e-DM 6.25 mg-15 mg/5 mL oral syrup TAKE 5 ML BY MOUTH 4 (FOUR) TIMES DAILY FOR 5 DAYS. No promethazi ne-DM 6.25 mg-15 mg/5 mL oral syrup TAKE 5 ML BY MOUTH 4 (FOUR) TIMES DAILY FOR 5 DAYS. [facility] testosteron e 10 mg/0.5 gram/actuat ion transdermal gel pump Apply 10 mg every day by transdermal route as directed. testosteron e 10 mg/0.5 gram/actuat ion transdermal gel pump Apply 10 mg every day by transdermal route as directed. No 10mg Q1D testostero ne 10 mg/0.5 gram/actua tion transderma l gel pump Apply 10 mg every day by transderma l route as directed. [facility] testosteron e 100 mg implant pellet Take 162.5 mg by implantatio n route. testosteron e 100 mg implant pellet Take 162.5 mg by implantatio n route. No 162.5mg testostero ne 100 mg implant pellet Take 162.5 mg by implantati on route. [facility] escitalopra m 10 mg tablet Take 1 tablet every day by oral route. escitalopra m 10 mg tablet Take 1 tablet every day by oral route. No 1 Q1D escitalopr am 10 mg tablet Take 1 tablet every day by oral route. [facility] estradiol 1 tablet Q day estradiol 1 tablet Q day No estradiol 1 tablet Q day [facility] metoprolol succinate ER 100 mg tablet,exte nded release 24 hr Take 1 tablet every day by oral route. metoprolol succinate ER 100 mg tablet,exte nded release 24 hr Take 1 tablet every day by oral route. No 1 Q1D metoprolol succinate ER 100 mg tablet,ext ended release 24 hr Take 1 tablet every day by oral route. [facility] Mounjaro 5 mg/0.5 mL subcutaneou s pen injector Inject 5 mg every week by subcutaneou s route for 84 days. Mounjaro 5 mg/0.5 mL subcutaneou s pen injector Inject 5 mg every week by subcutaneou s route for 84 days. No 5mg Q1W Mounjaro 5 mg/0.5 mL subcutaneo us pen injector Inject 5 mg every week by subcutaneo us route for 84 days. [facility] alprazolam 1 mg tablet TAKE 1 TABLET BY MOUTH TWICE DAILY NEEDED FOR ANXIETY alprazolam 1 mg tablet TAKE 1 TABLET BY MOUTH TWICE DAILY NEEDED FOR ANXIETY No alprazolam 1 mg tablet TAKE 1 TABLET BY MOUTH TWICE DAILY NEEDED FOR ANXIETY [facility] escitalopra m 10 mg tablet TAKE 1 TABLET BY MOUTH DAILY escitalopra m 10 mg tablet TAKE 1 TABLET BY MOUTH DAILY No escitalopr am 10 mg tablet TAKE 1 TABLET BY MOUTH DAILY [facility] estradiol 1 tablet Q day estradiol 1 tablet Q day No estradiol 1 tablet Q day [facility] estradiol 1 mg tablet TAKE 1 TABLET BY MOUTH DAILY estradiol 1 mg tablet TAKE 1 TABLET BY MOUTH DAILY No estradiol 1 mg tablet TAKE 1 TABLET BY MOUTH DAILY [facility] furosemide 20 mg tablet TAKE 1 TABLET BY MOUTH EVERY MORNING furosemide 20 mg tablet TAKE 1 TABLET BY MOUTH EVERY MORNING No furosemide 20 mg tablet TAKE 1 TABLET BY MOUTH EVERY MORNING [facility] metoprolol succinate ER 100 mg tablet,exte nded release 24 hr TAKE 1 TABLET BY MOUTH DAILY metoprolol succinate ER 100 mg tablet,exte nded release 24 hr TAKE 1 TABLET BY MOUTH DAILY No metoprolol succinate ER 100 mg tablet,ext ended release 24 hr TAKE 1 TABLET BY MOUTH DAILY [facility] Mounjaro 5 mg/0.5 mL subcutaneou s pen injector INJECT ONE (1) PEN (5 MG) SUBCUTANEOU SLY EVERY WEEK. Mounjaro 5 mg/0.5 mL subcutaneou s pen injector INJECT ONE (1) PEN (5 MG) SUBCUTANEOU SLY EVERY WEEK. No Mounjaro 5 mg/0.5 mL subcutaneo us pen injector INJECT ONE (1) PEN (5 MG) SUBCUTANEO USLY EVERY WEEK. [facility] pantoprazol e 40 mg tablet,leobardo yed release TAKE 1 TABLET BY MOUTH IN THE MORNING pantoprazol e 40 mg tablet,leobardo yed release TAKE 1 TABLET BY MOUTH IN THE MORNING No pantoprazo le 40 mg tablet,del ayed release TAKE 1 TABLET BY MOUTH IN THE MORNING [facility] alprazolam 1 mg tablet TAKE 1 TABLET BY MOUTH TWICE DAILY NEEDED FOR ANXIETY alprazolam 1 mg tablet TAKE 1 TABLET BY MOUTH TWICE DAILY NEEDED FOR ANXIETY No alprazolam 1 mg tablet TAKE 1 TABLET BY MOUTH TWICE DAILY NEEDED FOR ANXIETY [facility] escitalopra m 10 mg tablet TAKE 1 TABLET BY MOUTH DAILY escitalopra m 10 mg tablet TAKE 1 TABLET BY MOUTH DAILY No escitalopr am 10 mg tablet TAKE 1 TABLET BY MOUTH DAILY [facility] estradiol 1 tablet Q day estradiol 1 tablet Q day No estradiol 1 tablet Q day [facility] estradiol 1 mg tablet TAKE 1 TABLET BY MOUTH DAILY estradiol 1 mg tablet TAKE 1 TABLET BY MOUTH DAILY No estradiol 1 mg tablet TAKE 1 TABLET BY MOUTH DAILY [facility] estradiol 12.5 mg implant pellet 15 mg estradiol 12.5 mg implant pellet 15 mg No estradiol 12.5 mg implant pellet 15 mg [facility] furosemide 20 mg tablet TAKE 1 TABLET BY MOUTH EVERY MORNING furosemide 20 mg tablet TAKE 1 TABLET BY MOUTH EVERY MORNING No furosemide 20 mg tablet TAKE 1 TABLET BY MOUTH EVERY MORNING [facility] levofloxaci n 750 mg tablet TAKE 1 TABLET BY MOUTH EVERY DAY FOR 5 DAYS levofloxaci n 750 mg tablet TAKE 1 TABLET BY MOUTH EVERY DAY FOR 5 DAYS No levofloxac in 750 mg tablet TAKE 1 TABLET BY MOUTH EVERY DAY FOR 5 DAYS [facility] metoprolol succinate ER 100 mg tablet,exte nded release 24 hr TAKE 1 TABLET BY MOUTH DAILY metoprolol succinate ER 100 mg tablet,exte nded release 24 hr TAKE 1 TABLET BY MOUTH DAILY No metoprolol succinate ER 100 mg tablet,ext ended release 24 hr TAKE 1 TABLET BY MOUTH DAILY [facility] Mounjaro 5 mg/0.5 mL subcutaneou s pen injector INJECT ONE (1) PEN (5 MG) SUBCUTANEOU SLY EVERY WEEK. Mounjaro 5 mg/0.5 mL subcutaneou s pen injector INJECT ONE (1) PEN (5 MG) SUBCUTANEOU SLY EVERY WEEK. No Mounjaro 5 mg/0.5 mL subcutaneo us pen injector INJECT ONE (1) PEN (5 MG) SUBCUTANEO USLY EVERY WEEK. [facility] Mounjaro 7.5 mg/0.5 mL subcutaneou s pen injector INJECT 7.5 MG(S) UNDER THE SKIN ONCE WEEKLY. Mounjaro 7.5 mg/0.5 mL subcutaneou s pen injector INJECT 7.5 MG(S) UNDER THE SKIN ONCE WEEKLY. No Mounjaro 7.5 mg/0.5 mL subcutaneo us pen injector INJECT 7.5 MG(S) UNDER THE SKIN ONCE WEEKLY. [facility] pantoprazol e 40 mg tablet,leobardo yed release TAKE 1 TABLET BY MOUTH IN THE MORNING pantoprazol e 40 mg tablet,leobardo yed release TAKE 1 TABLET BY MOUTH IN THE MORNING No pantoprazo le 40 mg tablet,del ayed release TAKE 1 TABLET BY MOUTH IN THE MORNING [facility] prednisone 20 mg tablet TAKE 2 TABLETS BY MOUTH IN THE MORNING FOR 5 DAYS. prednisone 20 mg tablet TAKE 2 TABLETS BY MOUTH IN THE MORNING FOR 5 DAYS. No prednisone 20 mg tablet TAKE 2 TABLETS BY MOUTH IN THE MORNING FOR 5 DAYS. [facility] promethazin e-DM 6.25 mg-15 mg/5 mL oral syrup TAKE 5 ML BY MOUTH 4 (FOUR) TIMES DAILY FOR 5 DAYS. promethazin e-DM 6.25 mg-15 mg/5 mL oral syrup TAKE 5 ML BY MOUTH 4 (FOUR) TIMES DAILY FOR 5 DAYS. No promethazi ne-DM 6.25 mg-15 mg/5 mL oral syrup TAKE 5 ML BY MOUTH 4 (FOUR) TIMES DAILY FOR 5 DAYS. [facility] testosteron e 100 mg implant pellet Take 162.5 mg by implantatio n route. testosteron e 100 mg implant pellet Take 162.5 mg by implantatio n route. No 162.5mg testostero ne 100 mg implant pellet Take 162.5 mg by implantati on route. [facility] alprazolam 1 mg tablet TAKE 1 TABLET BY MOUTH TWICE DAILY NEEDED FOR ANXIETY alprazolam 1 mg tablet TAKE 1 TABLET BY MOUTH TWICE DAILY NEEDED FOR ANXIETY No alprazolam 1 mg tablet TAKE 1 TABLET BY MOUTH TWICE DAILY NEEDED FOR ANXIETY [facility] escitalopra m 10 mg tablet TAKE 1 TABLET BY MOUTH DAILY escitalopra m 10 mg tablet TAKE 1 TABLET BY MOUTH DAILY No escitalopr am 10 mg tablet TAKE 1 TABLET BY MOUTH DAILY [facility] Immunizations Ordered Immunization Name Filled Immunization Name Date Status Comments Source SARS-COV-2 COVID-19 MODERNA VACCINE 2020-11-12 00:00:00 Completed [facility] SARS-COV-2 COVID-19 MODERNA VACCINE 2020-11-12 00:00:00 Completed [facility] SARS-COV-2 COVID-19 MODERNA VACCINE 2020-11-12 00:00:00 Completed [facility] SARS-COV-2 COVID-19 MODERNA VACCINE 2020-11-12 00:00:00 Completed [facility] SARS-COV-2 COVID-19 MODERNA VACCINE 2020-11-12 00:00:00 Completed [facility] SARS-COV-2 COVID-19 MODERNA VACCINE 2020-11-12 00:00:00 Completed [facility] SARS-COV-2 COVID-19 MODERNA VACCINE 2020-11-12 00:00:00 Completed [facility] SARS-COV-2 COVID-19 MODERNA VACCINE 2020-11-12 00:00:00 Completed [facility] SARS-COV-2 COVID-19 MODERNA VACCINE 2020-11-12 00:00:00 Completed [facility] SARS-COV-2 COVID-19 MODERNA 12+ YRS VACCINE 2020-11-12 00:00:00 Completed [facility] SARS-COV-2 COVID-19 MODERNA 12+ YRS VACCINE 2020-11-12 00:00:00 Completed [facility] SARS-COV-2 COVID-19 MODERNA 12+ YRS VACCINE 2020-11-12 00:00:00 Completed [facility] SARS-COV-2 COVID-19 MODERNA 12+ YRS VACCINE 2020-11-12 00:00:00 Completed [facility] SARS-COV-2 COVID-19 MODERNA 12+ YRS VACCINE 2020-11-12 00:00:00 Completed [facility] SARS-COV-2 COVID-19 MODERNA 12+ YRS VACCINE 2020-11-12 00:00:00 Completed [facility] SARS-COV-2 COVID-19 MODERNA 12+ YRS VACCINE 2020-11-12 00:00:00 Completed [facility] SARS-COV-2 COVID-19 MODERNA 12+ YRS VACCINE 2020-11-12 00:00:00 Completed [facility] SARS-COV-2 COVID-19 MODERNA 12+ YRS VACCINE 2020-11-12 00:00:00 Completed [facility] SARS-COV-2 COVID-19 MODERNA 12+ YRS VACCINE 2020-11-12 00:00:00 Completed [facility] SARS-COV-2 COVID-19 MODERNA 12+ YRS VACCINE 2020-11-12 00:00:00 Completed [facility] SARS-COV-2 COVID-19 MODERNA 12+ YRS VACCINE 2020-11-12 00:00:00 Completed [facility] SARS-COV-2 COVID-19 MODERNA 12+ YRS VACCINE 2020-11-12 00:00:00 Completed [facility] SARS-COV-2 COVID-19 MODERNA 12+ YRS VACCINE 2020-11-12 00:00:00 Completed [facility] SARS-COV-2 COVID-19 MODERNA 12+ YRS VACCINE 2020-11-12 00:00:00 Completed [facility] SARS-COV-2 COVID-19 MODERNA 12+ YRS VACCINE 2020-11-12 00:00:00 Completed [facility] SARS-COV-2 COVID-19 MODERNA 12+ YRS VACCINE 2020-11-12 00:00:00 Completed [facility] SARS-COV-2 COVID-19 MODERNA VACCINE 2020-10-16 00:00:00 Completed [facility] SARS-COV-2 COVID-19 MODERNA VACCINE 2020-10-16 00:00:00 Completed [facility] SARS-COV-2 COVID-19 MODERNA VACCINE 2020-10-16 00:00:00 Completed [facility] SARS-COV-2 COVID-19 MODERNA VACCINE 2020-10-16 00:00:00 Completed [facility] SARS-COV-2 COVID-19 MODERNA VACCINE 2020-10-16 00:00:00 Completed [facility] SARS-COV-2 COVID-19 MODERNA VACCINE 2020-10-16 00:00:00 Completed [facility] SARS-COV-2 COVID-19 MODERNA VACCINE 2020-10-16 00:00:00 Completed [facility] SARS-COV-2 COVID-19 MODERNA VACCINE 2020-10-16 00:00:00 Completed [facility] SARS-COV-2 COVID-19 MODERNA VACCINE 2020-10-16 00:00:00 Completed [facility] SARS-COV-2 COVID-19 MODERNA 12+ YRS VACCINE 2020-10-16 00:00:00 Completed [facility] SARS-COV-2 COVID-19 MODERNA 12+ YRS VACCINE 2020-10-16 00:00:00 Completed [facility] SARS-COV-2 COVID-19 MODERNA 12+ YRS VACCINE 2020-10-16 00:00:00 Completed [facility] SARS-COV-2 COVID-19 MODERNA 12+ YRS VACCINE 2020-10-16 00:00:00 Completed [facility] SARS-COV-2 COVID-19 MODERNA 12+ YRS VACCINE 2020-10-16 00:00:00 Completed [facility] SARS-COV-2 COVID-19 MODERNA 12+ YRS VACCINE 2020-10-16 00:00:00 Completed [facility] SARS-COV-2 COVID-19 MODERNA 12+ YRS VACCINE 2020-10-16 00:00:00 Completed [facility] SARS-COV-2 COVID-19 MODERNA 12+ YRS VACCINE 2020-10-16 00:00:00 Completed [facility] SARS-COV-2 COVID-19 MODERNA 12+ YRS VACCINE 2020-10-16 00:00:00 Completed [facility] SARS-COV-2 COVID-19 MODERNA 12+ YRS VACCINE 2020-10-16 00:00:00 Completed [facility] SARS-COV-2 COVID-19 MODERNA 12+ YRS VACCINE 2020-10-16 00:00:00 Completed [facility] SARS-COV-2 COVID-19 MODERNA 12+ YRS VACCINE 2020-10-16 00:00:00 Completed [facility] SARS-COV-2 COVID-19 MODERNA 12+ YRS VACCINE 2020-10-16 00:00:00 Completed [facility] SARS-COV-2 COVID-19 MODERNA 12+ YRS VACCINE 2020-10-16 00:00:00 Completed [facility] SARS-COV-2 COVID-19 MODERNA 12+ YRS VACCINE 2020-10-16 00:00:00 Completed [facility] SARS-COV-2 COVID-19 MODERNA 12+ YRS VACCINE 2020-10-16 00:00:00 Completed [facility] SARS-COV-2 COVID-19 MODERNA 12+ YRS VACCINE 2020-10-16 00:00:00 Completed [facility] COVID-19, mRNA, LNP-S, PF, 100 mcg/0.5 mL dose (Moderna) COVID-19, mRNA, LNP-S, PF, 100 mcg/0.5 mL dose (Moderna) 2020-09-17 00:00:00 Completed [facility] COVID-19, mRNA, LNP-S, PF, 100 mcg/0.5 mL dose (Moderna) COVID-19, mRNA, LNP-S, PF, 100 mcg/0.5 mL dose (Moderna) 2020-09-17 00:00:00 Completed [facility] COVID-19, mRNA, LNP-S, PF, 100 mcg/0.5 mL dose (Moderna) COVID-19, mRNA, LNP-S, PF, 100 mcg/0.5 mL dose (Moderna) 2020-09-17 00:00:00 Completed [facility] COVID-19, mRNA, LNP-S, PF, 100 mcg/0.5 mL dose (Moderna) COVID-19, mRNA, LNP-S, PF, 100 mcg/0.5 mL dose (Moderna) 2020-09-17 00:00:00 Completed [facility] SARS-COV-2 COVID-19 MODERNA 12+ YRS VACCINE 2020-09-17 00:00:00 Completed [facility] SARS-COV-2 COVID-19 MODERNA 12+ YRS VACCINE 2020-09-17 00:00:00 Completed [facility] SARS-COV-2 COVID-19 MODERNA 12+ YRS VACCINE 2020-09-17 00:00:00 Completed [facility] SARS-COV-2 COVID-19 MODERNA 12+ YRS VACCINE 2020-09-17 00:00:00 Completed [facility] SARS-COV-2 COVID-19 MODERNA 12+ YRS VACCINE 2020-09-17 00:00:00 Completed [facility] COVID-19, mRNA, LNP-S, PF, 100 mcg/0.5 mL dose (Moderna) COVID-19, mRNA, LNP-S, PF, 100 mcg/0.5 mL dose (Moderna) 2020-09-17 00:00:00 Completed [facility] Influenza Virus Vaccine Quad .5 mL IM 6+ MO 2019-06-17 00:00:00 Completed [facility] Influenza Virus Vaccine Quad .5 mL IM 6+ MO 2019-06-17 00:00:00 Completed [facility] Influenza Virus Vaccine Quad .5 mL IM 6+ MO 2019-06-17 00:00:00 Completed [facility] Influenza Virus Vaccine Quad .5 mL IM 6+ MO 2019-06-17 00:00:00 Completed [facility] Influenza Virus Vaccine Quad .5 mL IM 6+ MO 2019-06-17 00:00:00 Completed [facility] Influenza Virus Vaccine Quad .5 mL IM 6+ MO 2019-06-17 00:00:00 Completed [facility] Influenza Virus Vaccine Quad .5 mL IM 6+ MO 2019-06-17 00:00:00 Completed [facility] Influenza Virus Vaccine Quad .5 mL IM 6+ MO 2019-06-17 00:00:00 Completed [facility] Influenza Virus Vaccine Quad .5 mL IM 6+ MO 2019-06-17 00:00:00 Completed [facility] Influenza Virus Vaccine Quad .5 mL IM 6+ MO 2019-06-17 00:00:00 Completed [facility] Influenza Virus Vaccine Quad .5 mL IM 6+ MO 2019-06-17 00:00:00 Completed [facility] Influenza Virus Vaccine Quad .5 mL IM 6+ MO 2019-06-17 00:00:00 Completed [facility] Influenza Virus Vaccine Quad .5 mL IM 6+ MO 2019-06-17 00:00:00 Completed [facility] Influenza Virus Vaccine Quad .5 mL IM 6+ MO 2019-06-17 00:00:00 Completed [facility] Influenza Virus Vaccine Quad .5 mL IM 6+ MO 2019-06-17 00:00:00 Completed [facility] Influenza Virus Vaccine Quad .5 mL IM 6+ MO 2019-06-17 00:00:00 Completed [facility] Influenza Virus Vaccine Quad .5 mL IM 6+ MO 2019-06-17 00:00:00 Completed [facility] Influenza Virus Vaccine Quad .5 mL IM 6+ MO 2019-06-17 00:00:00 Completed [facility] Influenza Virus Vaccine Quad .5 mL IM 6+ MO 2019-06-17 00:00:00 Completed [facility] Influenza Virus Vaccine Quad .5 mL IM 6+ MO 2019-06-17 00:00:00 Completed [facility] Influenza Virus Vaccine Quad .5 mL IM 6+ MO 2019-06-17 00:00:00 Completed [facility] Influenza Virus Vaccine Quad .5 mL IM 6+ MO 2019-06-17 00:00:00 Completed [facility] Influenza Virus Vaccine Quad .5 mL IM 6+ MO 2019-06-17 00:00:00 Completed [facility] Influenza Virus Vaccine Quad .5 mL IM 6+ MO 2019-06-17 00:00:00 Completed [facility] Influenza Virus Vaccine Quad .5 mL IM 6+ MO 2019-06-17 00:00:00 Completed [facility] Influenza Virus Vaccine Quad .5 mL IM 6+ MO (FLUZONE/FLULAVAL/F LUARIX) 2019-06-17 00:00:00 Completed [facility] Zoster Vaccine Recombinant 2019-06-16 00:00:00 Completed [facility] Zoster Vaccine Recombinant 2019-06-16 00:00:00 Completed [facility] Zoster Vaccine Recombinant 2019-06-16 00:00:00 Completed [facility] Zoster Vaccine Recombinant 2019-06-16 00:00:00 Completed [facility] Zoster Vaccine Recombinant 2019-06-16 00:00:00 Completed [facility] Zoster Vaccine Recombinant 2019-06-16 00:00:00 Completed [facility] Zoster Vaccine Recombinant 2019-06-16 00:00:00 Completed [facility] Zoster Vaccine Recombinant 2019-06-16 00:00:00 Completed [facility] Zoster Vaccine Recombinant 2019-06-16 00:00:00 Completed [facility] Zoster Vaccine Recombinant 2019-06-16 00:00:00 Completed [facility] Zoster Vaccine Recombinant 2019-06-16 00:00:00 Completed [facility] Zoster Vaccine Recombinant 2019-06-16 00:00:00 Completed [facility] Zoster Vaccine Recombinant 2019-06-16 00:00:00 Completed [facility] Zoster Vaccine Recombinant 2019-06-16 00:00:00 Completed [facility] Zoster Vaccine Recombinant 2019-06-16 00:00:00 Completed [facility] Zoster Vaccine Recombinant 2019-06-16 00:00:00 Completed [facility] Zoster Vaccine Recombinant 2019-06-16 00:00:00 Completed [facility] Zoster Vaccine Recombinant 2019-06-16 00:00:00 Completed [facility] Zoster Vaccine Recombinant 2019-06-16 00:00:00 Completed [facility] Zoster Vaccine Recombinant 2019-06-16 00:00:00 Completed [facility] Zoster Vaccine Recombinant 2019-06-16 00:00:00 Completed [facility] Zoster Vaccine Recombinant 2019-06-16 00:00:00 Completed [facility] Zoster Vaccine Recombinant 2019-06-16 00:00:00 Completed [facility] Zoster Vaccine Recombinant 2019-06-16 00:00:00 Completed [facility] Zoster Vaccine Recombinant 2019-06-16 00:00:00 Completed [facility] Zoster Vaccine Recombinant 2019-06-16 00:00:00 Completed [facility] TDAP (ADACEL) VACCINE 2014-09-17 00:00:00 Completed [facility] TDAP (ADACEL) VACCINE 2014-09-17 00:00:00 Completed [facility] TDAP (ADACEL) VACCINE 2014-09-17 00:00:00 Completed [facility] TDAP (ADACEL) VACCINE 2014-09-17 00:00:00 Completed [facility] TDAP (ADACEL) VACCINE 2014-09-17 00:00:00 Completed [facility] TDAP (ADACEL) VACCINE 2014-09-17 00:00:00 Completed [facility] TDAP (ADACEL) VACCINE 2014-09-17 00:00:00 Completed [facility] TDAP (ADACEL) VACCINE 2014-09-17 00:00:00 Completed [facility] TDAP (ADACEL) VACCINE 2014-09-17 00:00:00 Completed [facility] TDAP (ADACEL) VACCINE 2014-09-17 00:00:00 Completed [facility] TDAP (ADACEL) VACCINE 2014-09-17 00:00:00 Completed [facility] TDAP (ADACEL) VACCINE 2014-09-17 00:00:00 Completed [facility] TDAP (ADACEL) VACCINE 2014-09-17 00:00:00 Completed [facility] TDAP (ADACEL) VACCINE 2014-09-17 00:00:00 Completed [facility] TDAP (ADACEL) VACCINE 2014-09-17 00:00:00 Completed [facility] TDAP (ADACEL) VACCINE 2014-09-17 00:00:00 Completed [facility] TDAP (ADACEL) VACCINE 2014-09-17 00:00:00 Completed [facility] TDAP (ADACEL) VACCINE 2014-09-17 00:00:00 Completed [facility] TDAP (ADACEL) VACCINE 2014-09-17 00:00:00 Completed [facility] TDAP (ADACEL) VACCINE 2014-09-17 00:00:00 Completed [facility] TDAP (ADACEL) VACCINE 2014-09-17 00:00:00 Completed [facility] TDAP (ADACEL) VACCINE 2014-09-17 00:00:00 Completed [facility] TDAP (ADACEL) VACCINE 2014-09-17 00:00:00 Completed [facility] TDAP (ADACEL) VACCINE 2014-09-17 00:00:00 Completed [facility] TDAP (ADACEL) VACCINE 2014-09-17 00:00:00 Completed [facility] TDAP (ADACEL) VACCINE 2014-09-17 00:00:00 Completed [facility] Zoster Vaccine Recombinant Unknown Completed [facility] Influenza Virus Vaccine Quad .5 mL IM 6+ MO (FLUZONE/FLULAVAL/F LUARIX) Unknown Completed [facility] TDAP (ADACEL) VACCINE Unknown Completed [facility] SARS-COV-2 COVID-19 MODERNA 12+ YRS VACCINE Unknown Completed [facility] SARS-COV-2 COVID-19 MODERNA 12+ YRS VACCINE Unknown Completed [facility] SARS-COV-2 COVID-19 MODERNA 12+ YRS VACCINE Unknown Completed [facility] Zoster Vaccine Recombinant Unknown Completed [facility] Influenza Virus Vaccine Quad .5 mL IM 6+ MO (FLUZONE/FLULAVAL/F LUARIX) Unknown Completed [facility] TDAP (ADACEL) VACCINE Unknown Completed [facility] SARS-COV-2 COVID-19 MODERNA 12+ YRS VACCINE Unknown Completed [facility] SARS-COV-2 COVID-19 MODERNA 12+ YRS VACCINE Unknown Completed [facility] SARS-COV-2 COVID-19 MODERNA 12+ YRS VACCINE Unknown Completed [facility] Zoster Vaccine Recombinant Unknown Completed [facility] Influenza Virus Vaccine Quad .5 mL IM 6+ MO (FLUZONE/FLULAVAL/F LUARIX) Unknown Completed [facility] TDAP (ADACEL) VACCINE Unknown Completed [facility] SARS-COV-2 COVID-19 MODERNA 12+ YRS VACCINE Unknown Completed [facility] SARS-COV-2 COVID-19 MODERNA 12+ YRS VACCINE Unknown Completed [facility] SARS-COV-2 COVID-19 MODERNA 12+ YRS VACCINE Unknown Completed [facility] Zoster Vaccine Recombinant Unknown Completed [facility] Influenza Virus Vaccine Quad .5 mL IM 6+ MO (FLUZONE/FLULAVAL/F LUARIX) Unknown Completed [facility] TDAP (ADACEL) VACCINE Unknown Completed [facility] SARS-COV-2 COVID-19 MODERNA 12+ YRS VACCINE Unknown Completed [facility] SARS-COV-2 COVID-19 MODERNA 12+ YRS VACCINE Unknown Completed [facility] SARS-COV-2 COVID-19 MODERNA 12+ YRS VACCINE Unknown Completed [facility] Zoster Vaccine Recombinant Unknown Completed [facility] Influenza Virus Vaccine Quad .5 mL IM 6+ MO (FLUZONE/FLULAVAL/F LUARIX) Unknown Completed [facility] TDAP (ADACEL) VACCINE Unknown Completed [facility] SARS-COV-2 COVID-19 MODERNA 12+ YRS VACCINE Unknown Completed [facility] SARS-COV-2 COVID-19 MODERNA 12+ YRS VACCINE Unknown Completed [facility] SARS-COV-2 COVID-19 MODERNA 12+ YRS VACCINE Unknown Completed [facility] Zoster Vaccine Recombinant Unknown Completed [facility] Influenza Virus Vaccine Quad .5 mL IM 6+ MO (FLUZONE/FLULAVAL/F LUARIX) Unknown Completed [facility] TDAP (ADACEL) VACCINE Unknown Completed [facility] SARS-COV-2 COVID-19 MODERNA 12+ YRS VACCINE Unknown Completed [facility] SARS-COV-2 COVID-19 MODERNA 12+ YRS VACCINE Unknown Completed [facility] SARS-COV-2 COVID-19 MODERNA 12+ YRS VACCINE Unknown Completed [facility] Zoster Vaccine Recombinant Unknown Completed [facility] Influenza Virus Vaccine Quad .5 mL IM 6+ MO (FLUZONE/FLULAVAL/F LUARIX) Unknown Completed [facility] TDAP (ADACEL) VACCINE Unknown Completed [facility] SARS-COV-2 COVID-19 MODERNA 12+ YRS VACCINE Unknown Completed [facility] SARS-COV-2 COVID-19 MODERNA 12+ YRS VACCINE Unknown Completed [facility] SARS-COV-2 COVID-19 MODERNA 12+ YRS VACCINE Unknown Completed [facility] Zoster Vaccine Recombinant Unknown Completed [facility] Influenza Virus Vaccine Quad .5 mL IM 6+ MO (FLUZONE/FLULAVAL/F LUARIX) Unknown Completed [facility] TDAP (ADACEL) VACCINE Unknown Completed [facility] Zoster Vaccine Recombinant Unknown Completed [facility] Influenza Virus Vaccine Quad .5 mL IM 6+ MO (FLUZONE/FLULAVAL/F LUARIX) Unknown Completed [facility] TDAP (ADACEL) VACCINE Unknown Completed [facility] SARS-COV-2 COVID-19 MODERNA 12+ YRS VACCINE Unknown Completed [facility] SARS-COV-2 COVID-19 MODERNA 12+ YRS VACCINE Unknown Completed [facility] SARS-COV-2 COVID-19 MODERNA 12+ YRS VACCINE Unknown Completed [facility] Zoster Vaccine Recombinant Unknown Completed [facility] Influenza Virus Vaccine Quad .5 mL IM 6+ MO (FLUZONE/FLULAVAL/F LUARIX) Unknown Completed [facility] TDAP (ADACEL) VACCINE Unknown Completed [facility] SARS-COV-2 COVID-19 MODERNA 12+ YRS VACCINE Unknown Completed [facility] SARS-COV-2 COVID-19 MODERNA 12+ YRS VACCINE Unknown Completed [facility] SARS-COV-2 COVID-19 MODERNA 12+ YRS VACCINE Unknown Completed [facility] Vital Signs Vital Name Observation Time Observation Value Comments S ource height 2023-11-07 16:30:00 61.5 [in_i] Comm on [facility] weight 2023-11-07 16:30:00 235 [lb_av] Comm on [facility] bmi 2023-11-07 16:30:00 43.68 kg/m2 Comm on [facility] blood pressure systolic 2023-11-07 16:30:00 125 mm[Hg] [facility] blood pressure diastolic 2023-11-07 16:30:00 70 mm[Hg] Common [facility] height 2023-10-01 15:30:00 61.5 [in_i] Comm on [facility] weight 2023-10-01 15:30:00 242.8 [lb_av] Co mmon [facility] temperature 2023-10-01 15:30:00 97.3 [degF] Com mon [facility] bmi 2023-10-01 15:30:00 45.13 kg/m2 Comm on [facility] oximetry 2023-10-01 15:30:00 98 % Commo n [facility] blood pressure systolic 2023-10-01 15:30:00 122 mm[Hg] [facility] blood pressure diastolic 2023-10-01 15:30:00 72 mm[Hg] [facility] height 2023-07-16 15:20:00 61.5 [in_i] Comm on [facility] weight 2023-07-16 15:20:00 233.0 [lb_av] Co mmon [facility] temperature 2023-07-16 15:20:00 98.1 [degF] Com mon [facility] bmi 2023-07-16 15:20:00 43.31 kg/m2 Comm on [facility] oximetry 2023-07-16 15:20:00 96 % Commo n [facility] respiratory rate 2023-07-16 15:20:00 16 /min [facility] blood pressure systolic 2023-07-16 15:20:00 126 mm[Hg] [facility] blood pressure diastolic 2023-07-16 15:20:00 84 mm[Hg] [facility] Systolic blood pressure 2023-03-22 19:46:00 139 mm[Hg] [facility] Diastolic blood pressure 2023-03-22 19:46:00 86 mm[Hg] [facility] Heart rate 2023-03-22 19:45:00 68 /min [facility] Body height 2023-03-22 19:45:00 157.5 cm [facility] Body weight 2023-03-22 19:45:00 102.604 kg [facility] BMI 2023-03-22 19:45:00 41.37 kg/m2 [facility] Oxygen saturation in Arterial blood by Pulse oximetry 2023-03-22 19:45:00 98 /min [facility] BP Diastolic 2022-11-30 00:00:00 88 mm[Hg] [facility] Height 2022-11-30 00:00:00 62 [in_i] [facility] BMI (Body Mass Index) 2022-11-30 00:00:00 43 kg/m2 [facility] BP Systolic 2022-11-30 00:00:00 153 mm[Hg] [facility] Body Weight 2022-11-30 00:00:00 3760 [oz_av] [facility] Systolic blood pressure 2022-10-03 23:12:00 171 mm[Hg] [facility] Diastolic blood pressure 2022-10-03 23:12:00 108 mm[Hg] [facility] Heart rate 2022-10-03 22:25:00 82 /min [facility] Body temperature 2022-10-03 22:25:00 38.22 [facility] Respiratory rate 2022-10-03 22:25:00 17 /min [facility] Body height 2022-10-03 22:25:00 157.5 cm [facility] Body weight 2022-10-03 22:25:00 106.686 kg [facility] BMI 2022-10-03 22:25:00 43.02 kg/m2 [facility] Oxygen saturation in Arterial blood by Pulse oximetry 2022-10-03 22:25:00 96 /min [facility] BP Diastolic 2022-08-01 00:00:00 69 mm[Hg] [facility] Height 2022-08-01 00:00:00 62 [in_i] [facility] BMI (Body Mass Index) 2022-08-01 00:00:00 43 kg/m2 [facility] BP Systolic 2022-08-01 00:00:00 145 mm[Hg] [facility] Body Weight 2022-08-01 00:00:00 3760 [oz_av] [facility] Systolic blood pressure 2022-03-31 13:51:00 126 mm[Hg] [facility] Diastolic blood pressure 2022-03-31 13:51:00 85 mm[Hg] [facility] Heart rate 2022-03-31 13:51:00 59 /min [facility] 2022-03-31 13:51:00 36.5 [facility] Body height 2022-03-31 13:51:00 157.5 cm [facility] Body weight 2022-03-31 13:51:00 120.657 kg [facility] BMI 2022-03-31 13:51:00 48.65 kg/m2 [facility] Procedures Procedure Date / Time Performed Performing Clinician Source CONSENT/REFUSAL FOR DIAGNOSIS AND TREATMENT 2023-03-22 19:40:05 Doctor Unassigned, [facility] XR CHEST 2 VW 2022-10-03 22:59[facility] 2022-08-17 00:00:00 [facility] BI ULTRASOUND BREAST LIMITED LEFT 2022-04-18 21:26:48 Hussein [facility] BI DIAGNOSTIC TOMOSYNTHESIS BILATERAL 2022-04-18 20:55:15 Hussein [facility] Plan of Care Planned Activity Planned Date Details Comments Source Diagnostic Test Pending 2022-11-08 00:00:00 estradiol, serum [code = estradiol, serum] [facility] Diagnostic Test Pending 2022-11-08 00:00:00 testosterone, total, serum [code = testosterone, total, serum] [facility] Diagnostic Test Pending 2022-11-08 00:00:00 FSH (follicle-stimulat ing hormone), serum [code = FSH (follicle-stimulat ing hormone), serum] [facility] Encounters Start Date/Time End Date/Time Encounter Type Admission Type Attending Clinicians Care Facility Care Department Encounter ID Source 2023-10-12 10:17:01 Outpatient [place], [facility] [id number] [facility] 2023-10-02 15:10:01 [facility] [id number] [facility] 2023-09-27 15:38:01 Outpatient [place], [facility] [id number] [facility] 2023-07-16 14:53:02 Outpatient [place], [facility] [id number] [facility] 2021-07-15 16:50:31 Emergency [facility] [id number] [facility] 2023-11-08 00:00:00 2023-11-08 00:00:00 (TEL) STLMLC STLMLC [id number] [facility] 2023-11-07 00:00:00 2023-11-07 00:00:00 OFFICE VISIT ESTAB PT LEVEL 3 STLMLC STLMLC [id number] [facility] 2023-10-24 00:00:00 2023-10-24 00:00:00 (WEB) STLMLC STLMLC [id number] [facility] 2023-10-24 00:00:00 2023-10-24 00:00:00 (WEB) STLMLC STLMLC [id number] [facility] 2023-10-16 00:00:00 2023-10-16 00:00:00 (WEB) STLMLC STLMLC [id number] [facility] 2023-10-15 00:00:00 2023-10-15 00:00:00 (WEB) STLMLC STLMLC [id number] [facility] 2023-10-12 00:00:00 2023-10-12 00:00:00 (WEB) STLMLC STLMLC [id number] [facility] 2023-10-12 00:00:00 2023-10-12 00:00:00 (WEB) STLMLC STLMLC [id number] [facility] 2023-10-11 00:00:00 2023-10-11 00:00:00 (TEL) STLMLC STLMLC [id number] [facility] 2023-10-10 00:00:00 2023-10-10 00:00:00 (WEB) STLMLC STLMLC [id number] [facility] 2023-10-02 00:00:00 2023-10-02 00:00:00 (WEB) STLMLC STLMLC [id number] [facility] 2023-10-01 00:00:00 2023-10-01 00:00:00 PREV VISIT EST AGE 40-64 STLMLC STLMLC [id number] [facility] 2023-10-01 00:00:00 2023-10-01 00:00:00 (TEL) STLMLC STLMLC [id number] [facility] 2023-08-06 00:00:00 2023-08-06 00:00:00 (WEB) STLMLC STLMLC [id number] [facility] 2023-07-16 00:00:00 2023-07-16 00:00:00 OFFICE VISIT NEW PT LEVEL 4 STLMLC STLMLC [id number] [facility] 2023-06-20 00:00:00 2023-06-20 00:00:00 [facility] 1..840.114 350.1.13.10 4.2.7.2.686 [id number] [facility] 2023-05-09 00:00:00 2023-05-09 00:00:00 Refill [facility] 1.840.114 350.1.13.10 4.2.7.2.686 [id number] [facility] 2023-03-22 14:45:00 2023-03-22 15:23:02 Outpatient R PILLO NOBLE [facility] [id number] [facility] 2023-03-22 14:45:00 2023-03-22 15:23:02 Office Visit [facility] 1.840.114 350.1.13.10 4.2.7.2.686 [id number] [facility] 2023-03-22 00:00:00 2023-03-22 00:00:00 Orders Only Doctor Unassigned, [facility] 1.840.114 350.1.13.10 4.2.7.2.686 [id number] [facility] 2023-03-15 00:00:00 2023-03-15 00:00:00 Refblu Noble [facility] 1.2.840.114 350.1.13.10 4.2.7.2.686 [id number] [facility] 2023-03-04 00:00:00 2023-03-04 00:00:00 Refill [facility] 1.2.840.114 350.1.13.10 4.2.7.2.686 [id number] [facility] 2023-01-27 00:00:00 2023-01-27 00:00:00 Kailee [facility] 1.2.840.114 350.1.13.10 4.2.7.2.686 [id number] [facility] 2022-12-15 00:00:00 2022-12-15 00:00:00 Outpatient ROSETTA_C [facility] [id number] [facility] 2022-11-30 00:00:00 2022-11-30 00:00:00 PRINCESS Chand, RACE RELATIONS PROFESSOR, INTERNAL COMMUNICATIONS SPECIALIST-C: [address], [address], [place] [address] , Ph. [facility], PRINCESS Chand, INTERNAL COMMUNICATIONS SPECIALIST-C [id number] [facility] 2022-11-08 00:00:00 2022-11-08 00:00:00 PRINCESS Chand, RACE RELATIONS PROFESSOR, INTERNAL COMMUNICATIONS SPECIALIST-C: [address], [address], [place] [address] , Ph. [facility], Howard Gamble, MSN, INTERNAL COMMUNICATIONS SPECIALIST-C [id number] [facility] 2022-10-29 00:00:00 2022-10-29 00:00:00 [facility] 1.114 350.1.13.10 4.2.7.2.686 [id number] [facility] 2022-10-04 00:00:00 2022-10-04 00:00:00 Refill Noble [facility] JASPAL?[facility] 1.114 350.1.13.10 4.2.7.2.686 [id number] [facility] 2022-10-03 16:33:30 2022-10-03 23:59:00 Outpatient R KELLY ALVAREZ [facility] [id number] [facility] 2022-10-03 16:33:30 2022-10-03 23:59:00 Hospital Encounter [facility] 1.114 350.1.13.10 4.2.7.2.686 [id number] [facility] 2022-10-03 16:00:00 2022-10-03 17:16:22 Urgent Care Kelly Alvarez Unknown, Attending [facility] 1.114 350.1.13.10 4.2.7.2.686 [id number] [facility] 2022-09-04 00:00:00 2022-09-04 00:00:00 Refill Noble [facility] JASPAL?[facility] 1.114 350.1.13.10 4.2.7.2.686 [id number] [facility] 2022-08-17 00:00:00 2022-08-17 00:00:00 Outpatient SISSON_C [facility] [id number] 2022-08-17 00:00:00 2022-08-17 00:00:00 Outpatient SISSON_C [facility] [id number] 2022-08-17 00:00:00 2022-08-17 00:00:00 Outpatient SISSON_C [id number] 2022-08-17 00:00:00 2022-08-17 00:00:00 Howard Gamble, MSN, RACE RELATIONS PROFESSOR, INTERNAL COMMUNICATIONS SPECIALIST-C: [address], [address], [place] [address] , Ph. [facility], Howard Gamble, MSN, INTERNAL COMMUNICATIONS SPECIALIST-C [id number] [facility] 2022-08-05 00:00:00 2022-08-05 00:00:00 RefPillo Mcdermott [facility] 1.2.840.114 350.1.13.10 4.2.7.2.686 [id number] [facility] 2022-08-05 00:00:00 2022-08-05 00:00:00 Refill Marcelo Pena [facility] 1.2.840.114 350.1.13.10 4.2.7.2.686 [id number] [facility] 2022-08-01 00:00:00 2022-08-01 00:00:00 Outpatient SISSON_C [facility] [id number] [facility] 2022-08-01 00:00:00 2022-08-01 00:00:00 Howard Gamble, MSN, RACE RELATIONS PROFESSOR, INTERNAL COMMUNICATIONS SPECIALIST-C: [address], [address], [place] [address] , Ph. [facility], Howard Gamble, MSN, INTERNAL COMMUNICATIONS SPECIALIST-C [id number] [facility] 2022-08-01 00:00:00 2022-08-01 00:00:00 Refblu Noble [facility] 1.840.114 350.1.13.10 4.2.7.2.686 [id number] [facility] 2022-07-24 00:00:00 2022-07-24 00:00:00 Outpatient SISSON_C [facility] [id number] [facility] 2022-05-02 00:00:00 2022-05-02 00:00:00 Refill [facility] 1.84.114 350.1.13.10 4.2.7.2.686 [id number] [facility] 2022-04-27 00:00:00 2022-04-27 00:00:00 Patient Secure Msg Doctor Unassigned, Zion [facility] Hubs1L SCIENCES BLDG ..114 350.1.13.10 4.2.7.2.686 [id number] [facility] 2022-04-21 00:00:00 2022-04-21 00:00:00 Patient Secure Msg Doctor Unassigned, Zion [facility] ICAL SCIENCES BLDG 1..114 350.1.13.10 4.2.7.2.686 [id number] [facility] 2022-04-18 14:51:36 2022-04-18 23:59:00 Hospital Encounter Rose Mary Sanonily Caryl [facility] 1..840.114 350.1.13.10 4.2.7.2.686 [id number] [facility] 2022-04-18 14:49:06 2022-04-18 14:50:00 Outpatient R HUSSEIN SANON [facility] [id number] [facility] 2022-04-18 14:49:06 2022-04-18 14:50:00 [facility] 1..840.114 350.1.13.10 4.2.7.2.686 [id number] [facility] 2022-04-17 09:30:00 2022-04-17 10:36:32 Outpatient R ALTON BRANHAM [facility] [id number] [facility] 2022-04-17 09:30:00 2022-04-17 10:36:32 Ancillary Visit Vandana Olvera Craig L [facility] 1..840.114 350.1.13.10 4.2.7.2.686 [id number] [facility] 2022-04-17 09:30:00 2022-04-17 09:30:00 Outpatient R ALTON BRANHAM [facility] [id number] [facility] 2022-04-11 00:00:00 2022-04-11 00:00:00 Outpatient R HUSSEIN SANON [facility] [id number] [facility] 2022-04-11 00:00:00 2022-04-11 00:00:00 Telephone Pillo Noble [facility] 1.840.114 350.1.13.10 4.2.7.2.686 [id number] [facility] 2022-04-07 00:00:00 2022-04-07 00:00:00 Refill Todd [facility] JASPAL?REJI [facility] 1.2840.114 350.1.13.10 4.2.7.2.686 [id number] [facility] 2022-04-07 00:00:00 2022-04-07 00:00:00 Telephone [facility] 1..114 350.1.13.10 4.2.7.2.686 [id number] [facility] 2022-04-07 00:00:00 2022-04-07 00:00:00 Patient Secure Msg Doctor Unassigned, Zion [facility] ICAL SCIENCES BL 1..114 350.1.13.10 4.2.7.2.686 [id number] [facility] 2022-04-05 00:00:00 2022-04-05 00:00:00 Patient Secure Msg Doctor Unassigned, Zion [facility] OD 1.840.114 350.1.13.10 4.2.7.2.686 [id number] [facility] 2022-03-31 08:30:00 2022-03-31 09:21:41 Office Visit Hussein Sanon [facility] OD 1..114 350.1.13.10 4.2.7.2.686 [id number] [facility] 2022-03-31 08:30:00 2022-03-31 09:21:41 Outpatient R HUSSEIN SANON [facility] [id number] [facility] 2022-03-31 08:30:00 2022-03-31 08:30:00 Outpatient HUSSEIN ARAUZ [facility] [id number] [facility] 2022-03-30 00:00:00 2022-03-30 00:00:00 Pre Visit Outreach Patrica Johnly Sarah CHAKAJama [facility] 1.2.840.114 350.1.13.10 4.2.7.2.686 [id number] [facility] 2022-03-28 09:30:00 2022-03-28 10:28:06 Outpatient ALTON SAPP [facility] [id number] [facility] 2022-03-28 09:30:00 2022-03-28 10:28:06 Ancillary Visit Vandana Olvera Craig [facility] 1.2.840.114 350.1.13.10 4.2.7.2.686 [id number] [facility] 2022-03-28 00:00:00 2022-03-28 00:00:00 Pillo Perez [facility]?REJI [facility] 1.2.840.114 350.1.13.10 4.2.7.2.686 [id number] [facility] 2022-03-13 08:45:00 2022-03-13 10:06:28 Ancillary Visit Vandana Olvera Craig L [facility] 1.2.840.114 350.1.13.10 4.2.7.2.686 [id number] [facility] 2022-03-02 13:45:00 2022-03-02 16:00:58 Outpatient ALTON SAPP [facility] [id number] [facility] 2022-03-02 13:45:00 2022-03-02 16:00:58 Ancillary Visit Wade [facility]ana [facility] 1.840.114 350.1.13.10 4.2.7.2.686 [id number] [facility] 2022-02-27 00:00:00 2022-02-27 00:00:00 Patient Secure Msg Doctor Unassigned, [facility] 1.84.114 350.1.13.10 4.2.7.2.686 [id number] [facility] 2022-02-25 00:00:00 2022-02-25 00:00:00 RefPillo Mcdermott [facility] 1.840.114 350.1.13.10 4.2.7.2.686 [id number] 044 [id number] [facility] 2022-02-15 16:15:00 2022-02-15 16:56:54 Outpatient R LUPE CROOK [facility] [id number] [facility] 2022-02-15 16:15:00 2022-02-15 16:30:00 Office Visit Lupe Crook [facility]?AUNGSarah [facility] 1.840.114 350.1.13.10 4.2.7.2.686 [id number] [facility] 2022-01-13 11:00:00 2022-01-13 12:30:51 Outpatient R LUPE CROOK [facility] [id number] [facility] 2022-01-13 11:00:00 2022-01-13 11:15:00 Office [facility] 1.840.114 350.1.13.10 4.2.7.2.686 [id number] [facility] 2022-01-06 00:00:00 2022-01-06 00:00:00 Telephone Lupe Crook [facility] 1.284.114 350.1.13.10 4.2.7.2.686 [id number] [facility] 2021-12-28 00:00:00 2021-12-28 00:00:00 Outpatient R ALTON BRANHAM [facility] [id number] [facility] 2021-12-28 00:00:00 2021-12-28 00:00:00 Telephone Alton Branham [facility] 1.284.114 350.1.13.10 4.2.7.2.686 [id number] [facility] 2021-12-28 00:00:00 2021-12-28 00:00:00 Telephone Alton Branham [facility] 1.284.114 350.1.13.10 4.2.7.2.686 [id number] [facility] 2021-12-28 00:00:00 2021-12-28 00:00:00 Orders Only Doctor Unassigned, [facility] 1.2.114 350.1.13.10 4.2.7.2.686 [id number] [facility] 2021-12-26 15:00:00 2021-12-26 23:59:00 Hospital Encounter Alton Branham [facility] 1.2.114 350.1.13.10 4.2.7.2.686 [id number] [facility] 2021-12-26 15:30:00 2021-12-26 15:45:00 Trip Follower Visit Pob, Adc Lab Main Alton Branham [facility] 1.284.114 350.1.13.10 4.2.7.2.686 [id number] [facility] 2021-12-26 15:27:13 2021-12-26 14:59:00 Outpatient R ALTON BRANHAM [facility] [id number] [facility] 2021-12-26 00:00:00 2021-12-26 00:00:00 Telephone Jett Branhamig Raven [facility] 1.84.114 350.1.13.10 4.2.7.2.686 [id number] [facility] 2021-12-25 00:00:00 2021-12-25 00:00:00 Refill Pillo Noble [facility] ONE 1.84.114 350.1.13.10 4.2.7.2.686 [id number] [facility] 2021-12-14 14:45:00 2021-12-14 15:41:51 Outpatient R AMBREEN LUPE [facility] [id number] [facility] 2021-12-14 14:45:00 2021-12-14 15:41:51 [facility] 1.84.114 350.1.13.10 4.2.7.2.686 [id number] [facility] 2021-12-14 14:45:00 2021-12-14 15:41:51 Outpatient R AMBREEN LUPE [facility] [id number] [facility] 2021-12-12 00:00:00 2021-12-12 00:00:00 Telephone Ambreen [facility] JASPAL?[facility]I [facility] 1.84.114 350.1.13.10 4.2.7.2.686 [id number] [facility] 2021-12-10 00:00:00 2021-12-10 00:00:00 Orders Only Doctor Unassigned, [facility] 1..840.114 350.1.13.10 4.2.7.2.686 [id number] [facility] 2021-12-08 14:30:00 2021-12-08 15:39:20 Outpatient R AMBREEN [facility] [id number] [facility] 2021-12-08 14:30:00 2021-12-08 15:39:20 Office Visit [facility] 1..840.114 350.1.13.10 4.2.7.2.686 [id number] [facility] 2021-12-08 14:30:00 2021-12-08 15:39:20 Outpatient R AMBREEN [facility] [id number] [facility] 2021-12-08 14:30:00 2021-12-08 14:30:00 Outpatient R AMBREEN [facility] [id number] [facility] 2021-12-08 00:00:00 2021-12-08 00:00:00 Telephone [facility]reen [facility] 1.2.840.114 350.1.13.10 4.2.7.2.686 [id number] [facility] 2021-12-05 07:15:00 2021-12-05 07:30:00 Office Visit Pillo Noble [facility] 1.2.840.114 350.1.13.10 4.2.7.2.686 [id number] [facility] 2021-12-05 07:15:00 2021-12-05 07:15:00 Outpatient R PILLO NOBEL [facility] [id number] [facility] 2021-11-07 16:28:51 2021-11-07 23:59:00 Outpatient R BEATA YARY [facility] [id number] [facility] 2021-10-26 00:00:00 2021-10-26 00:00:00 Pillo Perez [facility] ONE 1..840.114 350.1.13.10 4.2.7.2.686 [id number] [facility] 2021-10-01 09:20:00 2021-10-01 09:40:00 Urgent Care Marcelo [facility] JASPAL?[facility] 1..840.114 350.1.13.10 4.2.7.2.686 [id number] [facility] 2021-10-01 09:20:00 2021-10-01 09:20:00 Outpatient Caryl JARRETT [facility] [id number] [facility] 2021-09-23 09:30:00 2021-09-23 10:30:00 Nurse Visit Therapy, Clc Sesar Christianson [facility] 1..840.114 350.1.13.10 4.2.7.2.686 [id number] [facility] 2021-09-23 09:30:00 2021-09-23 09:30:00 Outpatient SESAR BANSAL [facility] [id number] [facility] 2021-09-23 00:00:00 2021-09-23 00:00:00 Orders Only Doctor Unassigned, [facility] 1.840.114 350.1.13.10 4.2.7.2.686 [id number] [facility] 2021-09-02 10:20:00 2021-09-02 11:07:40 Outpatient KELLY JHAVERI [facility] [id number] [facility] 2021-09-02 10:20:00 2021-09-02 10:40:00 [facility] 1..840.114 350.1.13.10 4.2.7.2.686 [id number] [facility] 2021-09-02 00:00:00 2021-09-02 00:00:00 Kailee Noble [facility] OFFICE BUILDING ONE 1.84.114 350.1.13.10 4.2.7.2.686 [id number] [facility] 2021-08-03 00:00:00 2021-08-03 00:00:00 Kailee Noble [facility] OFFICE BUILDING ONE 1.84.114 350.1.13.10 4.2.7.2.686 [id number] [facility] 2021-07-27 15:15:00 2021-07-27 15:15:00 Outpatient PILLO DRUMMOND [facility] [id number] [facility] 2021-07-26 15:30:00 2021-07-26 15:30:00 Outpatient MARCELO PEDERSON [facility] [id number] [facility] 2021-07-26 15:30:00 2021-07-26 15:30:00 Outpatient MARCELO PEDERSON [facility] [id number] [facility] 2021-07-26 15:11:48 2021-07-26 15:26:48 Office Visit Marcelo Pena [facility] 1.840.114 350.1.13.10 4.2.7.2.686 [id number] [facility] 2021-07-20 00:00:00 2021-07-20 00:00:00 Hussein Pierce [facility] OD 1.114 350.1.13.10 4.2.7.2.686 [id number] [facility] 2021-06-12 00:00:00 2021-06-12 00:00:00 Kailee Noble [facility] Office Building One 1.114 350.1.13.10 4.2.7.2.686 [id number] [facility] 2021-05-25 09:46:28 2021-05-25 16:46:03 Telemedici ne Visit Ayde Sousa [facility] Jaspal?Reji [facility] Building 1.114 350.1.13.10 4.2.7.2.686 [id number] [facility] 2021-05-25 16:45:00 2021-05-25 16:45:00 Outpatient AYDE BRADFORD [facility] [id number] [facility] 2021-05-24 00:00:00 2021-05-24 00:00:00 Outpatient HUSSEIN ARAUZ [facility] [id number] [facility] 2021-05-24 00:00:00 2021-05-24 00:00:00 Kailee Noble [facility] Office Building One .114 350.1.13.10 4.2.7.2.686 [id number] [facility] 2021-05-23 09:16:03 2021-05-23 10:16:03 Nurse Visit Therapy, Clc Sesar Christianson [facility] Medical Office Building 1.114 350.1.13.10 4.2.7.2.686 [id number] [facility] 2021-05-23 09:30:00 2021-05-23 09:30:00 Outpatient R SEASR LÓPEZ [facility] [id number] [facility] 2021-05-23 00:00:00 2021-05-23 00:00:00 Orders Only Doctor Unassigned, [facility] 1.840.114 350.1.13.10 4.2.7.2.686 [id number] [facility] 2021-05-22 18:40:00 2021-05-22 19:00:00 Urgent Care Provider, [facility] Critical access hospital?[facility] Medical Office Building 1.840.114 350.1.13.10 4.2.7.2.686 [id number] [facility] 2021-05-22 18:40:00 2021-05-22 18:40:00 Outpatient R YARY BATRES [facility] [id number] [facility] 2021-05-22 00:00:00 2021-05-22 00:00:00 Telephone Ramu Iris Conner [facility] 1.84.114 350.1.13.10 4.2.7.2.686 [id number] [facility] 2021-05-21 19:07:41 2021-05-21 19:22:41 Laboratory Only Only, Ang Que [facility] Medical Office Building 1.84.114 350.1.13.10 4.2.7.2.686 [id number] [facility] 2021-05-21 19:15:00 2021-05-21 19:15:00 Outpatient R YAKELIN [facility] [id number] [facility] 2021-05-20 00:00:00 2021-05-20 00:00:00 Telephone Hussein Sanon [facility] in [facility] od 1.2.840.114 350.1.13.10 4.2.7.2.686 [id number] [facility] 2021-05-17 00:00:00 2021-05-17 00:00:00 Refill Hussein Sanon [facility] IN [facility] OD 1.2.840.114 350.1.13.10 4.2.7.2.686 [id number] [facility] 2021-03-31 00:00:00 2021-03-31 00:00:00 Patient Secure Msg Doctor Unassigned, Zion [facility] BUILDING ONE 1.2840.114 350.1.13.10 4.2.7.2.686 [id number] 044 [id number] [facility] 2021-03-16 00:00:00 2021-03-16 00:00:00 Patient Secure Msg Doctor Unassigned, Zion [facility] 1.2.840.114 350.1.13.10 4.2.7.2.686 [id number] 020 [id number] [facility] 2021-03-15 00:00:00 2021-03-15 00:00:00 Telephone Hussein Sanon [facility] in [facility] od 1.2840.114 350.1.13.10 4.2.7.2.686 [id number] 134 [id number] [facility] 2021-03-11 11:20:00 2021-03-11 23:59:00 Hospital Encounter Hussein Sanon [facility] 1.2.840.114 350.1.13.10 4.2.7.2.686 [id number] [facility] 2021-03-11 00:00:00 2021-03-11 00:00:00 Outpatient Caryl EDELIDAKATEROSE MARYHUSSEIN [facility] [id number] [facility] 2021-03-10 10:15:00 2021-03-10 10:15:00 Outpatient Caryl EDELIDAKATEHUSSEIN [facility] [id number] [facility] 2021-03-10 09:15:33 2021-03-10 10:10:18 Office Visit Hussein Sanon [facility] in [facility] od 1.840.114 350.1.13.10 4.2.7.2.686 [id number] 134 [id number] [facility] 2021-03-10 09:30:00 2021-03-10 09:30:00 Outpatient Caryl HOLLINGSWORTHIDAKATEHUSSEIN [facility] [id number] [facility] 2021-03-10 00:00:00 2021-03-10 00:00:00 Telephone NoblePillo [facility] Building 1..840.114 350.1.13.10 4.2.7.2.686 [id number] 044 [id number] [facility] 2021-03-10 00:00:00 2021-03-10 00:00:00 Telephone Juan JoseHussein [facility] in [facility] od 1.840.114 350.1.13.10 4.2.7.2.686 [id number] 134 [id number] [facility] 2021-02-07 07:12:53 2021-02-07 07:27:53 [facility] 1..840.114 350.1.13.10 4.2.7.2.686 [id number] 044 [id number] [facility] 2021-02-07 07:15:00 2021-02-07 07:15:00 Outpatient R PILLO NOBLE [facility] [id number] [facility] 2021-01-24 00:00:00 2021-01-24 00:00:00 [facility] 1.2840.114 350.1.13.10 4.2.7.2.686 [id number] 044 [id number] [facility] 2021-01-18 00:00:00 2021-01-18 00:00:00 Refill Todd [facility] Office Building One 1.2840.114 350.1.13.10 4.2.7.2.686 [id number] 044 [id number] [facility] 2021-01-18 00:00:00 2021-01-18 00:00:00 Refill Todd [facility] Office Building One 1.2840.114 350.1.13.10 4.2.7.2.686 [id number] 044 [id number] [facility] 2020-12-23 00:00:00 2020-12-23 00:00:00 Letter (Out) Todd [facility] Office Building One 1.2840.114 350.1.13.10 4.2.7.2.686 [id number] 044 [id number] [facility] 2020-12-23 00:00:00 2020-12-23 00:00:00 Telephone Todd [facility] Office Building One 1.2840.114 350.1.13.10 4.2.7.2.686 [id number] 044 [id number] [facility] 2020-12-23 00:00:00 2020-12-23 00:00:00 Refill Todd [facility] Office Building One 1.2.840.114 350.1.13.10 4.2.7.2.686 [id number] 044 [id number] [facility] 2020-11-30 00:00:00 2020-11-30 00:00:00 Patient Outreach ManoharRalph [facility] 1.114 350.1.13.10 4.2.7.2.686 [id number] [facility] 2020-11-14 10:33:42 2020-11-14 10:53:42 Urgent Care Yary Batres [facility] Office Building One 1.114 350.1.13.10 4.2.7.2.686 [id number] 044 [id number] [facility] 2020-11-14 10:40:00 2020-11-14 10:40:00 Outpatient R YARY BATRES [facility] [id number] [facility] 2020-09-04 00:00:00 2020-09-04 00:00:00 Refill Noble [facility] Office Building One .114 350.1.13.10 4.2.7.2.686 [id number] 044 [id number] [facility] 2020-09-02 00:00:00 2020-09-02 00:00:00 Refill Todd Pillo [facility] Office Building One .114 350.1.13.10 4.2.7.2.686 [id number] 044 [id number] [facility] 2020-07-26 18:55:57 2020-07-26 19:46:01 Urgent Care Provider, Yohann[facility] Scot Boggs [facility] Office Building One 1.114 350.1.13.10 4.2.7.2.686 [id number] 044 [id number] [facility] 2020-07-26 19:20:00 2020-07-26 19:20:00 Outpatient R SCOT BOGGS [facility] [id number] [facility] 2020-07-26 00:00:00 2020-07-26 00:00:00 Patient Secure Pillo Woo [facility] Office Building One 1.0.114 350.1.13.10 4.2.7.2.686 [id number] 044 [id number] [facility] 2020-07-13 00:00:00 2020-07-13 00:00:00 Patient Secure Msg Noble [facility] Office Building One 1..114 350.1.13.10 4.2.7.2.686 [id number] 044 [id number] [facility] 2020-07-12 00:00:00 2020-07-12 00:00:00 Orders Only Doctor Unassigned, Zion [facility] 1.0.114 350.1.13.10 4.2.7.2.686 [id number] [facility] 2020-07-07 00:00:00 2020-07-07 00:00:00 Patient Secure Msg Noble [facility] Office Building One 1..114 350.1.13.10 4.2.7.2.686 [id number] 044 [id number] [facility] 2020-07-06 16:51:56 2020-07-06 19:02:22 Urgent Care Provider, [facility] Care Mikey Meyers [facility] Office Building One 1.114 350.1.13.10 4.2.7.2.686 [id number] 044 [id number] [facility] 2020-07-06 17:00:00 2020-07-06 17:00:00 Outpatient R [facility] [id number] [facility] 2020-07-06 00:00:00 2020-07-06 00:00:00 Patient Secure Msg Doctor Unassigned, Zion [facility] OFFICE BUILDING ONE 1.0.114 350.1.13.10 4.2.7.2.686 [id number] 044 [id number] [facility] 2020-07-05 00:00:00 2020-07-05 00:00:00 Refill Pillo Noble [facility] Office Building One 1.0.114 350.1.13.10 4.2.7.2.686 [id number] 044 [id number] [facility] 2020-06-10 13:31:36 2020-06-10 13:46:36 Office Visit Todd Pillo [facility] Office Building One 1.0.114 350.1.13.10 4.2.7.2.686 [id number] 044 [id number] [facility] 2020-06-10 13:30:00 2020-06-10 13:30:00 Outpatient R SELINA NOBLEONY [facility] [id number] [facility] 2020-06-04 00:00:00 2020-06-04 00:00:00 Refill Todd [facility] Office Building One 1..114 350.1.13.10 4.2.7.2.686 [id number] 044 [id number] [facility] 2020-06-01 00:00:00 2020-06-01 00:00:00 Refill Todd Pillo [facility] Office Building One 1..114 350.1.13.10 4.2.7.2.686 [id number] 044 [id number] [facility] 2020-05-28 00:00:00 2020-05-28 00:00:00 Letter (Out) Todd Pillo [facility] Office Building One 1..114 350.1.13.10 4.2.7.2.686 [id number] 044 [id number] [facility] 2020-05-28 00:00:00 2020-05-28 00:00:00 Telephone Noble, Pillo [facility] Office Building One 1.114 350.1.13.10 4.2.7.2.686 [id number] 044 [id number] [facility] 2020-05-27 10:56:00 2020-05-27 14:07:00 Emergency Dremaria victoria, Jacqueline G [facility] 1..114 350.1.13.10 4.2.7.2.686 [id number] [id number] [facility] 2020-05-27 09:20:55 2020-05-27 10:51:06 Urgent Care Provider, Yohannes Ur[facility] Ayde Sousa [facility] Office Building One 1.114 350.1.13.10 4.2.7.2.686 [id number] 044 [id number] [facility] 2020-05-27 09:20:00 2020-05-27 09:20:00 Outpatient R [facility] [id number] [facility] 2020-05-25 00:00:00 2020-05-25 00:00:00 Patient Secure Msg Doctor Unassigned, Zion [facility] Office Building One 1.114 350.1.13.10 4.2.7.2.686 [id number] 044 [id number] [facility] 2020-05-25 00:00:00 2020-05-25 00:00:00 Refill Todd Pillo [facility] Office Building One 1.114 350.1.13.10 4.2.7.2.686 [id number] 044 [id number] [facility] 2020-05-25 00:00:00 2020-05-25 00:00:00 Telephone Todd Pillo [facility] Office Building One 1.2.840.114 350.1.13.10 4.2.7.2.686 [id number] 044 [id number] [facility] 2020-05-24 00:00:00 2020-05-24 00:00:00 Refill Pillo Noble [facility] Office Building One 1.2.840.114 350.1.13.10 4.2.7.2.686 [id number] 044 [id number] [facility] 2020-05-16 00:00:00 2020-05-16 00:00:00 Refill Pillo Noble [facility] Office Building One 1.2840.114 350.1.13.10 4.2.7.2.686 [id number] 044 [id number] [facility] 2020-05-10 00:00:00 2020-05-10 00:00:00 Refill Todd [facility] Office Building One 1.2.840.114 350.1.13.10 4.2.7.2.686 [id number] 044 [id number] [facility] 2020-03-17 00:00:00 2020-03-17 00:00:00 Refill Todd Pillo [facility] Office Building One 1.2840.114 350.1.13.10 4.2.7.2.686 [id number] 044 [id number] [facility] 2020-03-04 00:00:00 2020-03-04 00:00:00 Refill Todd Pillo [facility] Office Building One 1.2.840.114 350.1.13.10 4.2.7.2.686 [id number] 044 [id number] [facility] 2020-03-04 00:00:00 2020-03-04 00:00:00 Ayde Reid [facility] Office Building One 1.2.840.114 350.1.13.10 4.2.7.2.686 [id number] 044 [id number] [facility] 2020-03-03 08:41:59 2020-03-03 09:24:02 Urgent Care Pob1, Acute Care Clinic Ayde Sousa [facility] Office Building One ..114 350.1.13.10 4.2.7.2.686 [id number] 044 [id number] [facility] 2020-03-03 08:40:00 2020-03-03 08:40:00 Outpatient R [facility] [id number] [facility] 2020-02-29 00:00:00 2020-02-29 00:00:00 Kailee Noble Pillo [facility] Office Building One ..114 350.1.13.10 4.2.7.2.686 [id number] 044 [id number] [facility] 2020-02-22 00:00:00 2020-02-22 00:00:00 Refblu Noble [facility] Office Building One ..114 350.1.13.10 4.2.7.2.686 [id number] 044 [id number] [facility] 2020-02-20 00:00:00 2020-02-20 00:00:00 Kailee Noble Pillo [facility] Office Building One ..114 350.1.13.10 4.2.7.2.686 [id number] 044 [id number] [facility] 2020-01-06 00:00:00 2020-01-06 00:00:00 Patient Secure Msg Doctor Unassigned, Zion [facility] Office Building One .114 350.1.13.10 4.2.7.2.686 [id number] 044 [id number] [facility] 2019-12-25 00:00:00 2019-12-25 00:00:00 Kailee Noble [facility] Office Building One 1..114 350.1.13.10 4.2.7.2.686 [id number] 044 [id number] [facility] 2019-12-24 00:00:00 2019-12-24 00:00:00 Kailee Noble [facility] Office Building One 1..114 350.1.13.10 4.2.7.2.686 [id number] 044 [id number] [facility] 2019-12-24 00:00:00 2019-12-24 00:00:00 Patient Secure Msg Noble [facility] Office Building One 1..114 350.1.13.10 4.2.7.2.686 [id number] 044 [id number] [facility] 2019-11-27 14:20:00 2019-11-27 14:20:00 Outpatient MIKEY ESQUIVEL [facility] [id number] [facility] 2019-11-27 00:00:00 2019-11-27 00:00:00 Kailee Noble [facility] Office Building One 1..114 350.1.13.10 4.2.7.2.686 [id number] 044 [id number] [facility] 2019-09-27 00:00:00 2019-09-27 00:00:00 Kailee Noble [facility] Office Building One 1..114 350.1.13.10 4.2.7.2.686 [id number] 044 [id number] [facility] 2019-08-27 00:00:00 2019-08-27 00:00:00 Orders Only Doctor Unassigned, Zion [facility] 1..114 350.1.13.10 4.2.7.2.686 [id number] [facility] 2019-06-05 00:00:00 2019-06-05 00:00:00 Refill Pillo Noble [facility] Office Building One 1.2.840.114 350.1.13.10 4.2.7.2.686 [id number] 044 [id number] [facility] 2019-05-23 00:00:00 2019-05-23 00:00:00 [facility] 1.2.840.114 350.1.13.10 4.2.7.2.686 [id number] [id number] [facility] 2019-05-20 00:00:00 2019-05-20 00:00:00 Refill Pillo Noble [facility] Office Building One 1.2840.114 350.1.13.10 4.2.7.2.686 [id number] 044 [id number] [facility] 2019-05-13 00:00:00 2019-05-13 00:00:00 [facility] 1.2.840.114 350.1.13.10 4.2.7.2.686 [id number] 059 [id number] [facility] 2019-05-09 00:00:00 2019-05-09 00:00:00 [facility] 1.2.840.114 350.1.13.10 4.2.7.2.686 [id number] 059 [id number] [facility] 2019-04-23 00:00:00 2019-04-23 00:00:00 Refill Todd [facility] Office Building One 1.2.840.114 350.1.13.10 4.2.7.2.686 [id number] 044 [id number] [facility] Results Test Description Test Time Test Comments Results Result Co mments Source URIC [id number] 00:00:00* Test Item Value Reference Range Interpretation Comme nts URIC ACID (test code = 2501-5) 5.5 MG/DL See_Comment [Automated [employer]] The system which generated this result transmitted reference range: 2.7-6.1 MG/DL. The reference range was not used to interpret this result as normal/abnormal. HEMOGLOBIN [id number] 00:00:00* Test Item Value Reference Range Interpretation Comme nts HEMOGLOBIN A1c (test code = 4548-4) 6.1 % See_Comment H [Automated [employer]] The system which generated this result transmitted reference range: 4.2-5.6 %. The reference range was not used to interpret this result as normal/abnormal. TSH REFLEX TO FREE [id number] 00:00:00* Test Item Value Reference Range Interpretation Comme nts TSH REFLEX TO FREE T4 (test code = 28134-6) 2.460 UIU/ML See_Comment [Automated [employer]] The system which generated this result transmitted reference range: 0.400-4.100 UIU/ML. The reference range was not used to interpret this result as normal/abnormal. HEPATITIS C [id number] 00:00:00* Test Item Value Reference Range Interpretation Comme nts HEPATITIS C ANTIBODY (test c ode = 74145-5) NON-REACTIVE NON-REACTIVE URINALYSIS (CULTURE IF INDICATED)2023-10-01 00:00:00* Test Item Value Reference Range Interpretation Comme nts APPEARANCE (test code = 5767-9) CLEAR CLEAR BILIRUBIN (test code = 5770-3) NEGATIVE NEGATIVE COLOR (test code = 5778-6) YELLOW YELLOW-STRAW GLUCOSE (test code = 5792-7) NEGATIVE NEGATIVE KETONES (test code = 5797-6) NEGATIVE NEGATIVE LEUKOCYTE ESTERASE (test code = 5799-2) NEGATIVE NEGATIVE NITRITE (test code = 5802-4) NEGATIVE NEGATIVE OCCULT BLOOD (test code = 07940-4) NEGATIVE NEGATIVE pH (test code = 5803-2) 6.0 5.0-9.0 PROTEIN (test code = 24815-5) NEGATIVE NEGATIVE SPECIFIC GRAVITY (test code = 5811-5) 1.027 1.005-1.035 UROBILINOGEN (test code = 92451-8) 0.2 MG/DL See_Comment [Automated messa ge] The system which generated this result transmitted reference range: <=2.0 MG/DL. The reference range was not used to interpret this result as normal/abnormal. LIPID PANEL WITH REFLEX DIRECT [id number] 00:00:00* Test Item Value Reference Range Interpretation Comme nts CALC LDL CHOL (test code = 82410-6) 111 MG/DL See_Comment H [Automated messa ge] The system which generated this result transmitted reference range: <100 MG/DL. The reference range was not used to interpret this result as normal/abnormal. CHOLESTEROL (test code = 2093-3) 185 MG/DL See_Comment [Automated messa ge] The system which generated this result transmitted reference range: <200 MG/DL. The reference range was not used to interpret this result as normal/abnormal. HDL CHOLESTEROL (test code = 2085-9) 42 MG/DL See_Comment [Automated messa ge] The system which generated this result transmitted reference range: >39 MG/DL. The reference range was not used to interpret this result as normal/abnormal. RISK RATIO LDL/HDL (test code = 43950-1) 2.64 RATIO See_Comment [Automated message] The system which generated this result transmitted reference range: <3.22 RATIO. The reference range was not used to interpret this result as normal/abnormal. TRIGLYCERIDES (test code = 2571-8) 207 MG/DL See_Comment H [Automated messa ge] The system which generated this result transmitted reference range: <150 MG/DL. The reference range was not used to interpret this result as normal/abnormal. COMPREHENSIVE METABOLIC [id number] 00:00:00* Test Item Value Reference Range Interpretation Comme nts ALBUMIN (test code = 1751-7) 4.1 G/DL See_Comment [Automated messa ge] The system which generated this result transmitted reference range: 3.5-5.2 G/DL. The reference range was not used to interpret this result as normal/abnormal. ALKALINE PHOSPHATASE (test code = 6768-6) 69 U/L See_Comment [Automated message] The system which generated this result transmitted reference range: 40-133 U/L. The reference range was not used to interpret this result as normal/abnormal. BILIRUBIN, TOTAL (test code = 1975-2) <0.2 MG/DL See_Comment [Automated message] The system which generated this result transmitted reference range: <=1.2 MG/DL. The reference range was not used to interpret this result as normal/abnormal. BUN (test code = 3094-0) 11 MG/DL See_Comment [Automated messa ge] The system which generated this result transmitted reference range: 6-20 MG/DL. The reference range was not used to interpret this result as normal/abnormal. CALCIUM (test code = 26977-4) 9.1 MG/DL See_Comment [Automated messa ge] The system which generated this result transmitted reference range: 8.5-10.5 MG/DL. The reference range was not used to interpret this result as normal/abnormal. CALC A/G RATIO (test code = 1759-0) 1.6 RATIO See_Comment [Automated messa ge] The system which generated this result transmitted reference range: 1.0-2.6 RATIO. The reference range was not used to interpret this result as normal/abnormal. CALC BUN/CREAT (test code = 3097-3) 15 RATIO See_Comment [Automated messa ge] The system which generated this result transmitted reference range: 6-28 RATIO. The reference range was not used to interpret this result as normal/abnormal. CALC GLOBULIN (test code = 74897-3) 2.6 G/DL See_Comment [Automated messa ge] The system which generated this result transmitted reference range: 1.9-3.7 G/DL. The reference range was not used to interpret this result as normal/abnormal. CARBON DIOXIDE (test code = 1963-8) 28 MEQ/L See_Comment [Automated messa ge] The system which generated this result transmitted reference range: 19-31 MEQ/L. The reference range was not used to interpret this result as normal/abnormal. CHLORIDE (test code = 2075-0) 103 MEQ/L See_Comment [Automated messa ge] The system which generated this result transmitted reference range: 95-107 MEQ/L. The reference range was not used to interpret this result as normal/abnormal. CREATININE (test code = 2160-0) 0.72 MG/DL See_Comment [Automated messa ge] The system which generated this result transmitted reference range: 0.60-1.30 MG/DL. The reference range was not used to interpret this result as normal/abnormal. eGFR (2020 CKD-EPI) (test code = 55103-6) 100 ML/MIN/1.73 See_Comment [Automated message] The system which generated this result transmitted reference range: >60 ML/MIN/1.73. The reference range was not used to interpret this result as normal/abnormal. GLUCOSE (test code = 1558-6) 106 MG/DL See_Comment H [Automated messa ge] The system which generated this result transmitted reference range: 70-99 MG/DL. The reference range was not used to interpret this result as normal/abnormal. POTASSIUM (test code = 2823-3) 4.1 MEQ/L See_Comment [Automated messa ge] The system which generated this result transmitted reference range: 3.5-5.4 MEQ/L. The reference range was not used to interpret this result as normal/abnormal. PROTEIN, TOTAL (test code = 2885-2) 6.7 G/DL See_Comment [Automated Kranema ge] The system which generated this result transmitted reference range: 6.1-8.3 G/DL. The reference range was not used to interpret this result as normal/abnormal. AST (test code = 1920-8) 15 U/L See_Comment [Automated Kranema ge] The system which generated this result transmitted reference range: 9-40 U/L. The reference range was not used to interpret this result as normal/abnormal. ALT (test code = 1742-6) 13 U/L See_Comment [Automated Kranema ge] The system which generated this result transmitted reference range: 5-40 U/L. The reference range was not used to interpret this result as normal/abnormal. SODIUM (test code = 2951-2) 140 MEQ/L See_Comment [Automated messa ge] The system which generated this result transmitted reference range: 133-146 MEQ/L. The reference range was not used to interpret this result as normal/abnormal.
[2023-11-12 01:10] LABS: Absolute Lymphocytes (CBC) 2.7 K/uL (0.7-4.9); Hematocrit 38.9 % (36.0-45.0); Lymphocytes % 40.6 % (15.3-44.8); MCV 84.5 fL (80-100); MPV 10.1 fL (7.6-11.3); Platelets 190 thou/uL (152-406); RBC Red Blood Cell Count 4.61 M/uL (3.86-4.86)
[2023-11-12 01:22] LABS: ALT/SGPT 18 U/L (13-56); AST/SGOT 11 U/L (15-37); Albumin 3.7 g/dL (3.4-5.0); Alkaline Phosphatase 68 U/L (45-117); BUN Blood Urea Nitrogen 11 mg/dL (7-18); Bicarbonate 29 mEq/L (21-32); Bilirubin Total 0.3 mg/dL (0.2-1.0); Glomerular Filtration Rate 94 ml/min (=/>90); Glucose Level 103 mg/dL (74-106); NT PRO-BNP 72 pg/mL (<125); Potassium 3.6 mEq/L (3.5-5.1); Protein, Total 7.4 g/dL (6.4-8.2); Sodium Level 140 mEq/L (136-145); Troponin High Sensitivity 3.6 pg/mL (<58.9)
[2023-11-12 01:39] LABS: Bilirubin Direct < 0.1 mg/dL (0-0.2); Bilirubin Indirect, Calculated ND mg/dL (0.2-0.8)
--- NOTE | 2023-11-12 04:02 | ER ---
Nurse's Notes [facility] Name: Wendy Ambrocio Age: 52 yrs Sex: Female : 1970 Arrival Date: 11/12/2023 Time: 00:20 Bed 5 Private MD: Diagnosis: Upper Back Pain;Chest pain, unspecified Presentation: 11/12 00:24 Chief complaint: Patient states: new onset pain between shoulder blades, nausea, neck lg3 pain and left shoulder pain. Coronavirus screen: Client denies travel out of the [place] in the last 14 days. At this time, the client does not indicate any symptoms associated with coronavirus-19. Ebola Screen: No symptoms or risks identified at this time. Initial Sepsis Screen: Does the patient meet any 2 criteria? No. Patient's initial sepsis screen is negative. Does the patient have a suspected source of infection? No. Patient's initial sepsis screen is negative. Risk Assessment: Do you want to hurt yourself or someone else? Patient reports no desire to harm self or others. Onset of symptoms was November 12, 2023. 00:24 Method Of Arrival: Ambulatory lg3 00:24 Acuity: TERRELL 3 lg3 Triage Assessment: 00:30 General: Appears in no apparent distress. uncomfortable, Behavior is cooperative, lg3 anxious, fussy. Pain: Complains of pain in back of neck, back of left arm and posterior chest Pain currently is 6 out of 10 on a pain scale. EENT: No deficits noted. No signs and/or symptoms were reported regarding the EENT system. Neuro: Wang Agitation-Sedation Scale (RASS): +1 Restless Level of Consciousness is awake, alert, obeys commands, Oriented to person, place, time, situation. Cardiovascular: Reports chest pain, lightheadedness, nausea, shortness of breath, Heart tones S1 S2 present Capillary refill < 3 seconds Clubbing of nail beds is absent JVD is absent Patient's skin is warm and dry. Rhythm is sinus rhythm. Respiratory: No deficits noted. Airway is patent Respiratory effort is even, unlabored, Respiratory pattern is regular, symmetrical, Breath sounds are clear bilaterally. GI: No deficits noted. Abdomen is round non-distended, obese, Reports nausea. : No deficits noted. No signs and/or symptoms were reported regarding the genitourinary system. Derm: No deficits noted. No signs and/or symptoms reported regarding the dermatologic system. Skin is intact, is healthy with good turgor, Skin is dry, Skin is normal, Skin temperature is warm. Musculoskeletal: No deficits noted. Circulation, motion, and sensation intact. Range of motion: intact in all extremities. 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 - Social history:: Smoking status: Patient denies any tobacco usage or history of. Patient/guardian denies using alcohol, street drugs. Screenin:[facility] ED Fall Risk Assessment (Adult) History of falling in the last 3 months, lg3 including since admission No falls in past 3 months (0 pts). Abuse screen: Denies threats or abuse. Denies injuries from another. Nutritional screening: No deficits noted. Tuberculosis screening: No symptoms or risk factors identified. Assessment: 00:34 General: see triage assessment. Pain: Complains of pain in posterior chest and back of lg3 left arm and back of neck Pain radiates to left arm Pain began suddenly, 1 hour ago. 03:15 Reassessment: patient stated pain is lessened, but still a little nauseous. Neuro: tm6 Level of Consciousness is awake, alert, obeys commands, Oriented to person, place, time, situation. Cardiovascular: Capillary refill < 3 seconds Patient's skin is warm and dry. Respiratory: Airway is patent Respiratory effort is even, unlabored, Respiratory pattern is regular, symmetrical. GI: Abdomen is round non-distended. GI: Reports nausea. : No signs and/or symptoms were reported regarding the genitourinary system. 04:18 Reassessment: No changes from previously documented assessment. Patient and/or family vc1 updated on plan of care and expected duration. Pain level reassessed. Patient is alert, oriented x 3, equal unlabored respirations, skin warm/dry/pink. Vital Signs: 00:24 BP 206 / 112; Pulse 79; Resp 17 S; Temp 98.2(TE); Pulse Ox 100% on R/A; Weight 96.62 kg lg3 (R); Height 5 ft. 2 in. ; Pain 6/10; 03:12 BP 184 / 102; Pulse 65; Pulse Ox 98% on R/A; Pain 0/10; tm6 04:03 BP 198 / 108; Pulse 64; ec2 04:18 BP 206 / 86; Pulse 67; Resp 17; Pulse Ox 97% ; vc1 00:24 Body Mass Index 38.96 (96.62 kg, 157.48 cm) lg3 00:24 Pain Scale: Adult lg3 03:12 Pain Scale: Adult tm6 ED Course: 00:21 Patient arrived in ED. jj6 00:21 Honorio Finn MD is Attending Physician. ec2 00:30 Triage completed. lg3 00:30 Arm band placed on right wrist. lg3 00:33 Patient has correct armband on for positive identification. lg3 00:33 Client placed on continuous cardiac and pulse oximetry monitoring. NIBP monitoring vc1 applied. 00:33 Patient maintains SpO2 saturation greater than 95% on room air. lg3 00:34 Inserted saline lock: 20 gauge in right antecubital area, using aseptic technique. lg3 Blood collected. 00:34 D-Dimer Sent. lg3 00:34 Basic Metabolic Panel Sent. lg3 00:34 CBC with Diff Sent. lg3 00:34 NT PRO-BNP Sent. lg3 00:34 Troponin HS Sent. lg3 01:20 XRAY Chest (1 view) In Process Unspecified. EDMS 01:58 Angio Aorta For Dissection In Process Unspecified. EDMS 04:44 No provider procedures requiring assistance completed. IV discontinued, intact, vc1 bleeding controlled, No redness/swelling at site. Pressure dressing applied. Administered Medications: 02:54 CANCELLED (Physician Discretion): morphineor iv 2 mg IVP once over 4 mins ec2 03:00 Drug: hydrOXYzine PO 50 mg PO once Route: PO; lg3 03:01 Drug: Ketorolac IVP 15 mg IVP once Route: IVP; Site: right antecubital; lg3 Medication: 03:18 VIS not applicable for this client. vc1 Outcome: 04:02 Discharge ordered by . ec2 04:44 Discharged to home ambulatory, vc1 04:44 Condition: good 04:44 Discharge instructions given to patient, Instructed on discharge instructions, follow up and referral plans. Demonstrated understanding of instructions, follow-up care, 04:45 Patient left the ED. vc1 Signatures: Dispatcher [employer] EDSasha Gallo RN RN lg3 Ana Maria Kaurj6 Joya Sierra RN RN vc1 Honorio Finn MD MD ec2 Brock Reynaga RN RN tm6 Corrections: (The following items were deleted from the chart) 01:00 00:34 HEPATIC FUNCTION+C.LAB.BRZ drawn and sent. lg3 MARY
--- NOTE | 2023-11-12 04:02 | EDPHYS ---
Physician Documentation [facility] Name: Wendy Ambrocio Age: 52 yrs Sex: Female : 1970 Arrival Date: 11/12/2023 Time: 00:20 Bed 5 Private MD: ED Physician HPI: 11/12 00:28 This 52 yrs old Female presents to ER via Unassigned with complaints of Chest ec2 Pain, Nausea/Vomiting, Arm Pain, Chest Tightness. 00:28 Patient arrives today for evaluation of mid back pain into the left shoulder. Patient ec2 reports that the pain started approximately 1 hour ago. Patient reports no exertional component, no specific alleviating or exacerbating factors, denies any trauma. Reports history of anxiety, hypertension. Patient reports no difficulty breathing.. 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 - Social history:: Smoking status: Patient denies any tobacco usage or history of. Patient/guardian denies using alcohol, street drugs. ROS: 00:28 Constitutional: as per hpi ec2 Exam: 00:28 Constitutional: GEN: NAD Head: atraumatic Eyes: EOMI Ears: External ears are ec2 normal. CV: regular rate LUNGS: no respiratory distress ABD: non-distended SKIN: no evidence of rashes MSK: no evidence of trauma NEURO: moves all extremities equally Vital Signs: 00:24 BP 206 / 112; Pulse 79; Resp 17 S; Temp 98.2(TE); Pulse Ox 100% on R/A; Weight 96.62 kg lg3 (R); Height 5 ft. 2 in. ; Pain 6/10; 03:12 BP 184 / 102; Pulse 65; Pulse Ox 98% on R/A; Pain 0/10; tm6 04:03 BP 198 / 108; Pulse 64; ec2 04:18 BP 206 / 86; Pulse 67; Resp 17; Pulse Ox 97% ; vc1 00:24 Body Mass Index 38.96 (96.62 kg, 157.48 cm) lg3 00:24 Pain Scale: Adult lg3 03:12 Pain Scale: Adult tm6 MDM: 00:21 Patient medically screened. ec2 00:28 Data reviewed: vital signs. ED course: Patient arrives today for evaluation of mid back ec2 pain into the left shoulder. Examination remarkable for anxious individual is otherwise in no acute distress with a reassuring examination. Will obtain lab work, EKG, chest x-ray and treat the patient with Toradol. Currently considering ACS, lower suspicion for PE or dissection. Will treat the symptoms and reassess. . 00:39 ED course: EKG independently reviewed and interpreted by me, shows normal sinus rhythm, ec2 rate 77, no acute ST segment elevations, nonconcerning intervals.. 02:00 ED course: Liver profile unremarkable, metabolic profile reassuring, CBC reassuring. ec2 Troponin and BNP and D-dimer within appropriate ranges. Pending CT imaging. . 02:35 ED course: Chest x-ray shows no acute intrathoracic process.. ec2 02:44 ED course: CTA shows no evidence of aortic pathology or PE. On reassessment patient ec2 looks markedly improved prior to any interventions. . 03:33 ED course: Repeat EKG independently reviewed and interpreted by me, shows normal sinus ec2 rhythm, rate of 66, no acute ST segment elevations, nonconcerning intervals.. 04:01 ED course: Repeat troponin unremarkable. Will discharge home. Return precautions given..ec2 11/12 00:21 Order name: Basic Metabolic Panel; Complete Time: : ec2 11/12 00:21 Order name: CBC with Diff; Complete Time: ec2 11/12 00:21 Order name: NT PRO-BNP; Complete Time: ec2 11/12 00:21 Order name: Troponin HS; Complete Time: ec2 11/12 00:32 Order name: D-Dimer; Complete Time: ec2 11/12 01:00 Order name: Liver (Hepatic) Function; Complete Time: EDMS 11/12 02:40 Order name: Troponin HS; Complete Time: 04:01 ec2 11/12 00:21 Order name: XRAY Chest (1 view) ec2 11/12 00:50 Order name: Angio Aorta For Dissection EDCT 11/12 00:21 Order name: EKG; Complete Time: 00:22 ec2 11/12 00:21 Order name: Cardiac monitoring; Complete Time: 03:01 ec2 11/12 00:21 Order name: EKG - Nurse/Tech; Complete Time: 00:34 ec2 11/12 00:21 Order name: IV Saline Lock; Complete Time: 00:34 ec2 11/12 00:21 Order name: Labs collected and sent; Complete Time: 00:34 ec2 11/12 00:21 Order name: O2 Per Protocol; Complete Time: :34 ec2 11/12 00:21 Order name: O2 Sat Monitoring; Complete Time: 00:34 ec2 11/12 02:40 Order name: EKG - Nurse/Tech; Complete Time: 03:18 ec2 11/12 02:40 Order name: Misc. Order: Repeat EKG and trop; Complete Time: 03:18 ec2 Administered Medications: 02:54 CANCELLED (Physician Discretion): morphineor iv 2 mg IVP once over 4 mins ec2 03:00 Drug: hydrOXYzine PO 50 mg PO once Route: PO; lg3 03:01 Drug: Ketorolac IVP 15 mg IVP once Route: IVP; Site: right antecubital; lg3 Disposition Summary: 11/12/23 04:02 Discharge Ordered Notes: Location: Home ec2 Problem: new ec2 Symptoms: have improved ec2 Condition: Stable ec2 Diagnosis - Upper Back Pain ec2 - Chest pain, unspecified ec2 Followup: ec2 - With: Private Physician - When: - Reason: Re-evaluation by your physician Discharge Instructions: - Discharge Summary Sheet ec2 - Nonspecific Chest Pain, Adult, [id number] ec2 Forms: - Medication Reconciliation Form ec2 - Thank You Letter ec2 - Antibiotic Education ec2 - Prescription Opioid Use ec2 - Patient Portal Instructions ec2 - Leadership Thank You Letter ec2 Signatures: Dispatcher [employer] Sasha Israel RN RN lg3 Honorio Finn MD MD ec2 Corrections: (The following items were deleted from the chart) 00:50 00:36 Dissection W/ Wo Con+CT.RAD.BRZ ordered. EDMS EDMS 00:51 00:33 CT LEFT ANKLE WO CONTRAST ordered. EDMS EDMS 01:00 00:33 HEPATIC FUNCTION+C.LAB.BRZ ordered. EDMS EDMS 02:54 00:29 morphine IVP or IV 2 mg IVP once over 4 mins ordered. ec2 ec2
[2023-11-12 05:17] VITALS: BP 206/86; TEMP 98.2; O2SAT 97
--- NOTE | 2023-11-12 11:24 | RAD REPORT ---
EXAM DESCRIPTION: CT - Angio Aorta For Dissection - 11/12/2023 6:53 am CLINICAL HISTORY: The patient is 52 years old and is Female; CHEST PAIN; HYPERTENSION TECHNIQUE: Axial computed tomographic angiography images of the chest, abdomen and pelvis with intra venous contrast. Sagittal and coronal reformatted images were created and reviewed. This CT exam was performed using one or more of the following dose reduction techniques: automated exposure cont rol, adjustment of the mA and/or kV according to patient size, and/or use of iterative reconstruction technique. MIP reconstructed images were created and reviewed. COMPARISON: No relevant prior studies available. FINDINGS: VASCULATURE: AORTA: No acute findings. No aortic aneurysm. No dissection. PULMONARY ARTERIES: There are no obvious filling defects identified within the pulmonary arteries to suggest pulmonary embolism. GREAT VESSELS OF AORTIC ARCH: No acute findings. No dissection. No arterial occlusion or sign ificant stenosis. CELIAC TRUNK AND MESENTERIC ARTERIES: No acute findings. No occlusion or significant stenosis. RENAL ARTERIES: No acute findings. No occlusion or significant stenosis. ILIAC ARTERIES: No acute findings. No occlusion or significant stenosis. CHEST: LUNGS: Unremarkable. No mass. No consolidation. PLEURAL SPACE: Unremarkable. No significant effusion. No pneumothorax. HEART: Unremarkable. No cardiomegaly. No significant pericardial effusion. ABDOMEN: LIVER: The liver is enlarged and mildly fatty. GALLBLADDER AND BILE DUCTS: Surgical clips are present in the right upper quadrant, consistent wi th previous cholecystectomy. No ductal dilation. PANCREAS: Unremarkable. No ductal dilation. No mass. SPLEEN: Unremarkable. No splenomegaly. ADRENALS: Hyperplasia of the adrenal glands is noted. KIDNEYS AND URETERS: Unremarkable. No hydronephrosis. No solid mass. STOMACH AND BOWEL: The stomach is distended with food contents and air. The small bowel is fluid- filled and normal in caliber. A moderate amount of stool is present throughout the colon. Scattered c olonic diverticula are present without surrounding inflammation. There is no mucosal thickening or ev idence of obstruction. PELVIS: APPENDIX: No findings to suggest acute appendicitis. BLADDER: The bladder is well distended. REPRODUCTIVE: The patient is status post hysterectomy. CHEST, ABDOMEN and PELVIS: INTRAPERITONEAL SPACE: Unremarkable. No significant fluid collection. No free air. BONES/JOINTS: No acute fracture. No dislocation. SOFT TISSUES: Unremarkable. LYMPH NODES: Unremarkable. No enlarged lymph nodes. IMPRESSION: 1. No evidence of aortic aneurysm or dissection. 2. No evidence of pulmonary embolism. 3. No acute findings on this CTA chest, abdomen and pelvis to explain the patient's symptoms. Electronically signed by: Ileana Sage MD 11/12/2023 02:33 AM RN SOCIAL SERVICES Due to temporary technical issues with the PACS/Fluency reporting system, reports are being signed by the in house radiologists without review as a courtesy to insure prompt reporting. The interpreting radiologist is fully responsible for the content of the report.
--- NOTE | 2023-11-12 11:27 | RAD REPORT ---
EXAM DESCRIPTION: RAD - Chest Single View - 11/12/2023 1:17 am CLINICAL HISTORY: The patient is 52 years old and is Female; CHEST PAIN TECHNIQUE: Frontal view of the chest. COMPARISON: No relevant prior studies available. FINDINGS: LUNGS: Unremarkable. No consolidation. PLEURAL SPACE: Unremarkable. No pneumothorax. HEART: Unremarkable. No cardiomegaly. MEDIASTINUM: Unremarkable. Normal mediastinal contour. BONES/JOINTS: Multilevel degenerative change of the spine is present. No acute fracture. UPPER ABDOMEN: Unremarkable as visualized. IMPRESSION: No acute cardiopulmonary process. 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 The interpreting radiologist is fully responsible for the content of the report.
--- NOTE | 2023-11-12 14:28 | EKG ---
Test Date: 2023-11-12 Test Time: 00:27:20 [employer] Internship: MARLYN MEASUREMENT RESULTS: Intervals: Rate: 77 FL: 148 QRSD: 94 QT: 412 QTc: 466 [place]: P: 37 FL: 148 QRS: 39 T: 67 INTERPRETIVE STATEMENTS: Normal sinus rhythm Normal ECG No previous ECG available for comparison Electronically Signed On 11-12-23 14:26:04 TIME STUDY STATISTICIAN by Travis Davies
--- NOTE | 2023-11-13 15:50 | EKG ---
Test Date: 2023-11-12 Test Time: 03:19:05 [place] Operator: MARLYN MEASUREMENT RESULTS: Intervals: Rate: 66 LA: 172 QRSD: 100 QT: 440 QTc: 461 [place]: P: 50 LA: 172 QRS: 39 T: 72 INTERPRETIVE STATEMENTS: Normal sinus rhythm Normal ECG Compared to ECG 11/12/2023 00:27:20 No significant changes Electronically Signed On 11-13-23 15:46:50 BRICK OFF BEARER by Travis Davies
== END ==
LOC: ER 00:20
DX: R07.9 Chest pain, unspecified (principal); M54.9 Dorsalgia, unspecified
CPT/HCPCS: 36415; 71045; 71275; 74175; 80048; 80076; 83880; 84484; 85025; 85379; 93005; 96374; 99285; Q9967